=== PATIENT | female | born 1945 | race Caucasian/White ===

== ENCOUNTER → 2017-02-04 | Outpatient (CLI) | payer MEDICARE, BC, SELFPAY | PROVIDERS: Family Provider Family Medicine; Visit Provider Family Medicine | DX: M17.0 Bilateral primary osteoarthritis of knee (principal) | CPT/HCPCS: 73564 ==

== ENCOUNTER 2017-03-28 08:27 | Day surgery (SDC) | payer MEDICARE, BC, SELFPAY ==
[2017-03-25 10:23] VITALS: BMI 32.4
[2017-03-28] VITALS (9 sets, daily range): BP systolic 142–161; BP diastolic 75–100; PULSE 80–89; RESP 11–18; TEMP 36.3–36.8; O2SAT 93–97
--- NOTE | 2017-03-28 10:00 | HMH.PROC ---
[facility] Procedure Note Procedure Note:: Upper Endoscopy Procedure Report: Esophagogastroduodenoscopy with cold biopsies Endoscopost: Christiano Bruce II, MD Referring Physician: Deion Smith MD Date of Procedure: March 28, 2017 Equipment: Olympus GIF 180 standard upper endoscope Sedation: Fentanyl 100 mg IV/ Versed 7 mg IV Indications: Mrs. Arellano is a 72-year-old female who is here for diagnostic upper endoscopy. The patient does state that in July 2015 (while living in [place]) she did have black tarry melanotic stools and underwent an EGD showing a couple of small lesions. She received blood transfusion and iron transfusions. A repeat endoscopy they are in July 2015 showed that this had resolved. The patient states that in December 2016 she once again had some black tarry melanotic stools and had fatigue and malaise. She was found to have marked iron deficiency anemia and received parenteral iron infusion as well as oral iron. The patient has improved. She did have a deep venous thrombosis last spring and took warfarin until the end of June 2016. The patient does state that she had a colonoscopy 3 or 4 years ago (in [place]) at which time a couple of small polyps were removed. She does have some occasional periumbilical discomfort. She has some intermittent swallowing difficulties with dysphagia to both solids and liquids. She reports no heartburn or reflux. She does have some bloating, gassiness and belching. She reports no weight loss or family history of stomach or colon cancer. Her father had Crohn's disease and diverticulitis. Her most recent hemoglobin and hematocrit in January 2017 were 12.1 and 44.0 but her hemoglobin and hematocrit in December 2016 were 8.4 and 27.8. She does have a history of GERD. Procedure: Prior to the procedure, a history and physical exam was performed, and patient's medications and allergies were reviewed. The risks, benefits and alternatives of the sedation and procedure were discussed with the patient. All questions were answered and informed consent was obtained. The patient was brought to the procedure room. Patient identification and proposed procedure were verified by the physician and the nurse. The patient was placed in a left lateral decubitus position and the scope was passed under direct vision. Throughout the procedure, the patient's blood pressure, pulse, and oxygen saturations were monitored continuously. The upper GI endoscopy was accomplished without difficulty. The patient tolerated the procedure well. Findings: The scope was passed directly into the upper esophagus and advanced to the third/fourth portion of the duodenum and proximal jejunum. There was a large duodenal diverticulum in the third portion of the duodenum but otherwise there were normal folds with normal mucosa and conniventes. There was mild duodenal lymphoid stasis. Cold biopsies were taken from the second portion of the duodenum to rule out celiac disease. The scope was withdrawn through a normal duodenal bulb and pylorus into the stomach. There was some mild linear erythema of the antrum and body of the stomach with bowel reflux. Upon retroflexion there was a very large hiatal/paraesophageal hernia (7-8 cm) with mild linear Gavino's erosions. Cold biopsies were taken from the prepyloric antrum and lesser curvature for histology. The scope was then withdrawn into the esophagus. There was no evidence of reflux esophagitis or Granger's. There was mild presbyesophagus. Impression: 1. Large hiatal/paraesophageal hernia (7-8 cm) with mild linear Gavino's erosions 2. Bile reflux with mild linear reactive gastritis 3. Large duodenal diverticulum third portion 4. Mild presbyesophagus Plan: I do feel that the patient's recurrent iron deficiency anemia is most likely related to the Gavino's erosions. I also feel that the patient is at high risk for gastric volvulus because of the size of this paraesop
--- NOTE | 2017-03-28 10:09 | P.PCN_ITS ---
[facility] Procedure Note Procedure Note:: Upper Endoscopy Procedure Report: Esophagogastroduodenoscopy with cold biopsies Endoscopost: Christiano Bruce II, MD Referring Physician: Deion Smith MD Date of Procedure: March 28, 2017 Equipment: Olympus GIF 180 standard upper endoscope Sedation: Fentanyl 100 mg IV/ Versed 7 mg IV Indications: Mrs. Arellano is a 72-year-old female who is here for diagnostic upper endoscopy. The patient does state that in July 2015 (while living in [place]) she did have black tarry melanotic stools and underwent an EGD showing a couple of small lesions. She received blood transfusion and iron transfusions. A repeat endoscopy they are in July 2015 showed that this had resolved. The patient states that in December 2016 she once again had some black tarry melanotic stools and had fatigue and malaise. She was found to have marked iron deficiency anemia and received parenteral iron infusion as well as oral iron. The patient has improved. She did have a deep venous thrombosis last spring and took warfarin until the end of June 2016. The patient does state that she had a colonoscopy 3 or 4 years ago (in [place]) at which time a couple of small polyps were removed. She does have some occasional periumbilical discomfort. She has some intermittent swallowing difficulties with dysphagia to both solids and liquids. She reports no heartburn or reflux. She does have some bloating, gassiness and belching. She reports no weight loss or family history of stomach or colon cancer. Her father had Crohn's disease and diverticulitis. Her most recent hemoglobin and hematocrit in January 2017 were 12.1 and 44.0 but her hemoglobin and hematocrit in December 2016 were 8.4 and 27.8. She does have a history of GERD. Procedure: Prior to the procedure, a history and physical exam was performed, and patient' s medications and allergies were reviewed. The risks, benefits and alternatives of the sedation and procedure were discussed with the patient. All questions were answered and informed consent was obtained. The patient was brought to the procedure room. Patient identification and proposed procedure were verified by the physician and the nurse. The patient was placed in a left lateral decubitus position and the scope was passed under direct vision. Throughout the procedure, the patient's blood pressure, pulse, and oxygen saturations were monitored continuously. The upper GI endoscopy was accomplished without difficulty. The patient tolerated the procedure well. Findings: The scope was passed directly into the upper esophagus and advanced to the third/fourth portion of the duodenum and proximal jejunum. There was a large duodenal diverticulum in the third portion of the duodenum but otherwise there were normal folds with normal mucosa and conniventes. There was mild duodenal lymphoid stasis. Cold biopsies were taken from the second portion of the duodenum to rule out celiac disease. The scope was withdrawn through a normal duodenal bulb and pylorus into the stomach. There was some mild linear erythema of the antrum and body of the stomach with bowel reflux. Upon retroflexion there was a very large hiatal/paraesophageal hernia (7-8 cm) with mild linear Gavino's erosions. Cold biopsies were taken from the prepyloric antrum and lesser curvature for histology. The scope was then withdrawn into the esophagus. There was no evidence of reflux esophagitis or Granger's. There was mild presbyesophagus. Impression: 1. Large hiatal/paraesophageal hernia (7-8 cm) with mild linear Gavino's erosions 2. Bile reflux with mild linear reactive gastritis 3. Large duodenal diverticulum third portion
== END 2017-03-28 11:15 | disposition home or self-care (01) ==
LOC: OUTP 08:29
PROVIDERS: Family Provider Family Medicine; PCP Family Medicine; Visit Provider Internal Medicine Gastroenterology
PROC: 0DJ08ZZ Inspection of Upper Intestinal Tract, Via Natural or Artificial Opening Endoscopic (ICD-10-PCS; CPT 43235; principal; 2017-03-28 09:30)
DX: K29.60 Other gastritis without bleeding; K57.10 Diverticulosis of small intestine without perforation or abscess without bleeding; K22.8 Other specified diseases of esophagus; Z86.010 Personal history of colon polyps; Z83.79 Family history of other diseases of the digestive system
CPT/HCPCS: 43239; 88305; 99152

== ENCOUNTER → 2017-04-03 14:50 | Outpatient (CLI) | payer MEDICARE, BC, SELFPAY ==
--- NOTE | 2017-04-03 15:22 | XR_ITS ---
XR ankle LT min 3V HISTORY: Left ankle pain ITS.REASON: BILATERAL ANKLE PAIN ORDERING PHYSICIAN: Genesis Adam DPM PATIENT AGE: 72 years COMPARISON: None FINDINGS: Weightbearing views are performed. Minimal hypertrophic changes are present at the tip of the medial malleolus. There is mild narrowing of the ankle joint anteriorly. No fracture or dislocation. The talar dome has an unremarkable appearance. There are small sclerotic focus in the medial distal tibia and may be due to small bone island. IMPRESSION: 1. Mild osteoarthritic change. 2. No acute finding
--- NOTE | 2017-04-03 15:22 | XR_ITS ---
XR foot RT min 3V HISTORY: Right foot pain ITS.REASON: BILATERAL FOOT PAIN ORDERING PHYSICIAN: Genesis Adam DPM PATIENT AGE: 72 years COMPARISON: None FINDINGS: Weightbearing views are performed. Minimal osteoarthritic changes involving first metatarsophalangeal joint. There is pes planus with Mearys angle of -20 degrees. No fracture or dislocation. IMPRESSION: Pes planus
--- NOTE | 2017-04-03 15:22 | XR_ITS ---
XR ankle RT min 3V HISTORY: Ankle pain ITS.REASON: BILATERAL ANKLE PAIN ORDERING PHYSICIAN: Genesis Adam DPM PATIENT AGE: 72 years COMPARISON: None FINDINGS: Weightbearing views performed No fracture or dislocation. No lytic or blastic change. There is normal mineralization.. The joint spaces are well-preserved. No significant degenerative/arthritic changes. No erosive changes evident. Small sclerotic focus involves the distal tibia medially at 5 mm and may be due to a small bone island IMPRESSION: Negative ankle, no acute finding
--- NOTE | 2017-04-03 15:22 | XR_ITS ---
XR foot LT min 3V HISTORY: ITS.REASON: BILATERAL FOOT PAIN ORDERING PHYSICIAN: Genesis Adam DPM PATIENT AGE: 72 years COMPARISON: None FINDINGS: Weightbearing views are performed. Minimal osteoarthritic changes involving first metatarsophalangeal joint. There is pes planus with Mearys angle of -18 degrees. No fracture or dislocation. IMPRESSION: Pes planus with osteoarthritic change of the first metatarsophalangeal joint
== END ==
PROVIDERS: PCP Family Medicine; Visit Provider Podiatrist
DX: R52 Pain, unspecified (principal)
CPT/HCPCS: 73610; 73630

== ENCOUNTER → 2017-04-10 11:00 | Outpatient (REF) | payer MEDICARE, BC, SELFPAY ==
[2017-04-11 11:49] LABS: Occult Blood,Stool Negative (Negative)
== END ==
LOC: LAB 11:00
PROVIDERS: Visit Provider Internal Medicine Gastroenterology
DX: D64.9 Anemia, unspecified (principal)
CPT/HCPCS: 82272; G0328

== ENCOUNTER → 2017-04-11 11:55 | Outpatient (POV) | payer MEDICARE, BC, SELFPAY | PROVIDERS: Family Provider Family Medicine; PCP Family Medicine; Visit Provider Podiatrist | DX: Z00.00 Encounter for general adult medical examination without abnormal findings (principal) ==

== ENCOUNTER → 2017-05-30 08:48 | Outpatient (POV) | payer MEDICARE, BC, SELFPAY | PROVIDERS: Visit Provider Podiatrist | DX: Z00.00 Encounter for general adult medical examination without abnormal findings (principal) ==

== ENCOUNTER → 2017-08-04 11:05 | Outpatient (CLI) | payer MEDICARE, BC, SELFPAY ==
--- NOTE | 2017-08-04 11:13 | NVE_ITS ---
Venous Exam Indications: 729.5 Pain in limb. IMPRESSIONS 1. There is no evidence of significant Reflux. 2. No evidence of deep or superficial vein thrombosis involving the left lower extremity History: PMH: Deep vein thrombosis. Left lower extremity venous duplex evaluation. Doppler flow study including spectral analysis, color and ellsworth scale imaging. Location: Vascular laboratory. Patient status: Outpatient. CRITICAL FINDINGS - Reported to: [facility] - Read back and verified. - 08/04/17 - 1135 - NONE Tables: Venous flow and imaging: + +-------+ + Location Overall Flow properties + +-------+ + Left common femoral Patent Normal phasicity; spontaneous; normal augmentation; compressible + +-------+ + Left saphenofemoral junction Patent Compressible + +-------+ + Left profunda femoral Patent Compressible + +-------+ + Left femoral Patent Normal phasicity; spontaneous; normal augmentation; compressible + +-------+ + Left greater saphenous Patent Normal phasicity; spontaneous; normal augmentation; compressible + +-------+ + Left popliteal Patent Normal phasicity; spontaneous; normal augmentation; compressible + +-------+ + Left posterior tibial Patent Compressible + +-------+ + Left peroneal Patent Compressible + +-------+ + Left gastrocnemius Patent Compressible + +-------+ + Left soleal Patent Compressible + +-------+ + (Report amended ) Electronically signed by: Cem Thomson [id number]
== END ==
PROVIDERS: PCP Nurse Practitioner; Visit Provider Nurse Practitioner
DX: M79.605 Pain in left leg (principal); M79.89 Other specified soft tissue disorders; Z86.718 Personal history of other venous thrombosis and embolism
CPT/HCPCS: 93971

== ENCOUNTER → 2017-08-06 11:46 | Outpatient (CLI) | payer MEDICARE, BC, SELFPAY ==
--- NOTE | 2017-08-06 11:51 | XR_ITS ---
XR knee LT 2V HISTORY: ITS.REASON: LEFT LEG SWELLING,LEFT KNEE PAIN ORDERING PHYSICIAN: Chelo Flores PATIENT AGE: 72 years COMPARISON: None FINDINGS: There are mild osteoarthritic changes of all 3 compartments. No fracture or dislocation. No lytic or blastic change. IMPRESSION: Mild osteoarthritis
== END ==
PROVIDERS: PCP Family Medicine; Visit Provider Nurse Practitioner
DX: M25.562 Pain in left knee (principal); M79.89 Other specified soft tissue disorders
CPT/HCPCS: 73560

== ENCOUNTER → 2017-08-15 14:28 | Outpatient (CLI) | payer MEDICARE, BC, SELFPAY ==
--- NOTE | 2017-08-15 14:30 | MR_ITS ---
MR knee LT wo con HISTORY: Left knee pain posterior left knee pain ITS.REASON: LEFT KNEE PAIN, UNSPECIFIED CHRONICITY ORDERING PHYSICIAN: Deion Smith MD PATIENT AGE: 72 years Comparison: 08/14/2012 TECHNIQUE: Standard multiplanar multiecho sequences are performed without contrast. FINDINGS: The cruciate ligaments, collateral ligaments, patellar tendon, and quadriceps tendon have an unremarkable appearance. There is a longitudinal tear involving the posterior horn of the lateral meniscus with minimal separation of meniscal fragments by approximately 2 mm. There are tricompartmental osteoarthritic changes with decrease in the joint space and osteophyte formation. There is minimal medial extrusion of the medial meniscus and mild lateral extrusion of the lateral meniscus. Small amount of edema is present in the subcortical region of the posterior patella. There is loss of the patellar cartilage with mild hypertrophic changes of the patella. There is a small knee joint effusion with small loculated areas of fluid along the medial aspect of the distal femur, posterior to the distal femur. Ghotra cyst are present containing tiny septations. The Ghotra's cyst is both deep and superficial to the medial head of gastrocnemius. They measure at least 5 cm in length. IMPRESSION: 1. Longitudinal tear posterior horn lateral meniscus 2. 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 Multiple small septations are present within the effusions. 3. 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
== END ==
PROVIDERS: Family Provider Family Medicine; PCP Family Medicine; Visit Provider Family Medicine
DX: M25.562 Pain in left knee (principal)
CPT/HCPCS: 73721

== ENCOUNTER → 2017-10-31 09:57 | Outpatient (CLI) | payer MEDICARE, BC, SELFPAY | PROVIDERS: PCP Family Medicine; Visit Provider Family Medicine | DX: R00.2 Palpitations (principal); R55 Syncope and collapse; I10 Essential (primary) hypertension | CPT/HCPCS: 93225; 93226 ==

== ENCOUNTER → 2017-11-18 06:12 | Outpatient (CLI) | payer MEDICARE, BC, SELFPAY ==
--- NOTE | 2017-11-18 06:30 | NM_ITS ---
History and Indications: Hypertension, hyperlipidemia, family history, shortness of breath and palpitations Procedure: Patient received a 0.4, with intravenous Lexiscan, resting heart rate was 66 bpm resting blood pressure 193/98, with Lexiscan maximum heart rate achieved was 89 bpm which is less than 85% of the maximum predicted heart rate and a blood pressure was 192/95. The CT scan patient complained of chest pressure and shortness of breath. Electrocardiogram: Resting echocardiogram showed sinus rhythm with Lexiscan there is less than 1.[address] segment depression noted from the baseline EKG. The EKG portion of the Lexiscan Myoview is nondiagnostic. Cardiac stress and resting SPECT images: Cardiac stress and rest SPECT images were obtained using technetium 99 Myoview 31.4 mCi at stress and 9.5 mCi at rest gated SPECT further analysis of segmental wall motion and calculation of the ejection fraction also done. Cardiac stress and the rest SPECT images show uniform myocardial activity without segmental perfusion abnormality, computer derived ejection fraction is over 65% no wall motion abnormality, right ventricle is normal size and contractility. Conclusion: 1. The EKG portion of the Lexiscan Myoview is nondiagnostic. 2. No scintigraphic evidence of reversible ischemia seen, computer derived ejection fraction over 65% with no regional wall motion abnormality, right ventricle is normal size and contractility. 3. Normal Lexiscan Myoview study.
--- NOTE | 2017-11-18 07:29 | HMH.ITSHM ---
ATORVASTATIN DULOXETINE LORATADINE PREDNISONE MULTIVITAMINS
== END ==
PROVIDERS: PCP Family Medicine; Visit Provider Family Medicine
DX: R00.2 Palpitations (principal); R55 Syncope and collapse; I10 Essential (primary) hypertension; R07.89 Other chest pain
CPT/HCPCS: 78452; 93017; A9502; J2785

== ENCOUNTER → 2017-11-27 10:36 | Outpatient (CLI) | payer MEDICARE, BC, SELFPAY | PROVIDERS: PCP Family Medicine; Visit Provider Family Medicine | DX: I48.0 Paroxysmal atrial fibrillation (principal) | CPT/HCPCS: 93270 ==

== ENCOUNTER → 2017-12-05 07:59 | Outpatient (CLI) | payer MEDICARE, BC, SELFPAY ==
--- NOTE | 2017-12-05 08:01 | CA_ITS ---
PROCEDURE: 2-D M-mode and color Doppler study INDICATIONS FOR THE TEST: Chest pain COPD Heart Murmur Tobacco Smoking PalpitationsX Fatigue Syncope Edema Hypertension Diabetes Mellitus Rheumatic Fever SOB ACEVES Obesity HyperlipidemiaX Family History HDX Additional History PAF PATIENT INFORMATION HEIGHT: 67 WEIGHT:170 GENDER: Female B/P:130/85 2-D/M-MODE INTERPRETATION: 2-D MEASUREMENTS OBSERVED VALUES IN CMS Right Ventricular Dimension (RVDd) 1.4 Interventricular Septum (Thickness)(IVsd) 1.1 Left Ventricular Internal Dimensions(LVIDd) 5.6 Left Ventricular Posterior Wall (Thickness)(LVPWd) .8 Aortic Root 2.9 Aortic Cusp Separation 1.7 Left Atrial Dimensions (LAD) 3.9 2D 1. Left atrium is mildly enlarged, left ventricle is normal size, mild concentric left ventricular hypertrophy, visually estimated ejection fraction 55% with no regional wall motion abnormality. 2. The right atrium and right ventricle are normal size and contractility. 3. The aortic valve is minimally thickened and fibrosed. 4. The mitral and tricuspid valve leaflets are minimally thickened. 5. The pulmonic valve is poorly visualized. 6. No significant pericardial effusion noted. DOPPLER INTERROGATION: Doppler interrogation of the aortic, mitral and tricuspid valvular presence of mild mitral and tricuspid regurgitation, tricuspid regurgitation jet velocity is inadequate for calculation of the right ventricular systolic pressure, grade 1 diastolic dysfunction seen without tissue Doppler evidence of raised left atrial pressure. CONCLUSION: 1. Mildly enlarged left atrium, normal left ventricular size, visually estimated ejection fraction 55% with no regional wall motion abnormality, grade 1 diastolic dysfunction seen without tissue Doppler evidence of raised left atrial pressure. 2. Mild mitral and tricuspid regurgitation 3. No significant pericardial effusion noted.
== END ==
PROVIDERS: Family Provider Family Medicine; PCP Family Medicine; Visit Provider Family Medicine
DX: I48.0 Paroxysmal atrial fibrillation (principal)
CPT/HCPCS: 93306

== ENCOUNTER → 2018-04-21 12:00 | Outpatient (CLI) | payer MEDICARE, BC, SELFPAY ==
[2018-04-21 12:03] LABS: Adenovirus F 40/41, stool Not Detected (NotDetected); Astrovirus Not Detected (NotDetected); Campylobacter Not Detected (NotDetected); Clostridium Difficile A/B, PCR Not Detected (NotDetected); Cryptosporidium Not Detected (NotDetected); Cyclospora Cayetanesis Not Detected (NotDetected); Entamoeba histolytica Not Detected (NotDetected); Enteroaggregative E coli Not Detected (NotDetected); Enteropathogenic E coli Not Detected (NotDetected); Enterotoxigenic E coli Not Detected (NotDetected); Giardia lamblia Not Detected (NotDetected); Norovirus Not Detected (NotDetected); Plesimonas Shigalloides, PCR Not Detected (NotDetected); Rotavirus A Not Detected (NotDetected); Salmonella, PCR Not Detected (NotDetected); Sapovirus Not Detected (NotDetected); Shiga-like toxin E coli Not Detected (NotDetected); Shigella Enterovasive E coli Not Detected (NotDetected); Vibrio Cholerae Not Detected (NotDetected); Vibrio, PCR Not Detected (NotDetected); Yersinia Entercolitica, PCR Not Detected (NotDetected)
[2018-04-25 10:08] LABS: Lactoferrin, Fecal, Quant. 1.07 ug/mL(g) (0.00-7.24)
== END ==
PROVIDERS: Visit Provider Nurse Practitioner Acute Care
DX: R19.4 Change in bowel habit (principal)
CPT/HCPCS: 83630; 87506

== ENCOUNTER → 2018-06-29 10:00 | Outpatient (CLI) | payer MEDICARE, BC, SELFPAY ==
--- NOTE | 2018-06-29 10:05 | MM_ITS ---
MM Dig screening mamm BI w/CAD CAD Screening COMPARISON: Outside digital mammograms with CAD 06/04/2016 INDICATION: There is a history of breast cancer patient maternal grandmother and maternal aunt and mother TECHNIQUE: Standard CC and MLO images were obtained. R2 CAD reviewed. FINDINGS: Scattered fibroglandular densities are seen throughout both breasts. There are mole markers on each breast. There is a benign-appearing calcification there is faint arterial calcification in each breast. There is no suspicious lesion and no suspicious microcalcifications. Right breast. IMPRESSION: Fibrofatty parenchyma with no suspicious lesion seen BI-RADS Category: 2 Benign Finding(s) RECOMMENDED FOLLOW-UP: 1YR - 1 YEAR FOLLOW-UP (A letter has been sent to the patient regarding results of the study.)
== END ==
PROVIDERS: PCP Family Medicine; Visit Provider Family Medicine
DX: Z12.31 Encounter for screening mammogram for malignant neoplasm of breast (principal)
CPT/HCPCS: 77067

== ENCOUNTER → 2018-07-02 06:40 | Outpatient (CLI) | payer MEDICARE, BC, SELFPAY ==
[2018-07-10 13:14] LABS: 5-HIAA, Urine 2.6 mg/L (Undefined); 5-HIAA, Urine, 24Hr. 3.3 mg/24 hr (0.0-14.9)
== END ==
PROVIDERS: Visit Provider Family Medicine
DX: R61 Generalized hyperhidrosis (principal); R23.2 Flushing; R00.0 Tachycardia, unspecified; R53.81 Other malaise
CPT/HCPCS: 83497

== ENCOUNTER → 2018-07-29 13:36 | Outpatient (POV) | payer MEDICARE, BC, SELFPAY | DX: Z00.00 Encounter for general adult medical examination without abnormal findings (principal) ==

== ENCOUNTER → 2018-09-02 14:08 | Outpatient (POV) | payer MEDICARE, BC, SELFPAY | DX: Z00.00 Encounter for general adult medical examination without abnormal findings (principal) ==

== ENCOUNTER → 2018-09-16 13:23 | Outpatient (POV) | payer MEDICARE, BC, SELFPAY | DX: Z00.00 Encounter for general adult medical examination without abnormal findings (principal) ==

== ENCOUNTER → 2018-10-05 14:46 | Outpatient (POV) | payer MEDICARE, BC, SELFPAY | PROVIDERS: PCP Family Medicine; Visit Provider Nurse Practitioner Family | DX: Z00.00 Encounter for general adult medical examination without abnormal findings (principal) ==

== ENCOUNTER → 2018-11-19 10:39 | Outpatient (CLI) | payer MEDICARE, BC, SELFPAY ==
--- NOTE | 2018-11-19 10:44 | XR_ITS ---
PROCEDURE: XR FOOT WT BEARING RT 3V CLINICAL INDICATION: foot pain COMPARISON: [id number] XR foot LT min 3V from 04/03/2017 [id number] XR foot RT min 3V from 04/03/2017 FINDINGS: No fracture or dislocation. No lytic or blastic change. There is normal mineralization. There is stable narrowing of the 1st MTP joint. There is no spurs or erosions. There is no acute fracture. There is stable flattening of the plantar arch. There is a 5 millimeters sclerotic focus is involving distal tibia. Other findings:None. IMPRESSION: No acute process. Stable degenerative change 1st MTP joint. Probable distal tibial benign bone island. Dictated by: Robert Rodriguez 11/19/2018 11:13 Electronically signed by Robert Rodriguez in [place] 11/19/2018 11:13
--- NOTE | 2018-11-19 10:44 | XR_ITS ---
PROCEDURE: XR FOOT WT BEARING LT 3V CLINICAL INDICATION: foot pain COMPARISON: [id number] XR foot LT min 3V from 04/03/2017 [id number] XR foot RT min 3V from 04/03/2017 FINDINGS: No fracture or dislocation. No lytic or blastic change. There is normal mineralization. There is narrowing of multiple interphalangeal joint spaces as well as the 1st MTP joint without erosions. There is a small spur involving distal 1st metatarsal bone at the MTP joint. Other findings:There is no acute fracture. IMPRESSION: No acute process. Joint space degenerative changes especially 1st MTP joint. Dictated by: Robert Rodriguez 11/19/2018 11:11 Electronically signed by Robert Rodriguez in [place] 11/19/2018 11:11
== END ==
PROVIDERS: PCP Family Medicine; Visit Provider Podiatrist
DX: L84 Corns and callosities (principal)
CPT/HCPCS: 73630

== ENCOUNTER → 2018-11-25 14:16 | Outpatient (POV) | payer MEDICARE, BC, SELFPAY | PROVIDERS: Visit Provider Internal Medicine | DX: Z00.00 Encounter for general adult medical examination without abnormal findings (principal) ==

== ENCOUNTER → 2018-12-16 14:01 | Outpatient (POV) | payer MEDICARE, BC, SELFPAY | DX: Z00.00 Encounter for general adult medical examination without abnormal findings (principal) ==

== ENCOUNTER → 2019-01-13 14:04 | Outpatient (POV) | payer MEDICARE, BC, SELFPAY | DX: Z00.00 Encounter for general adult medical examination without abnormal findings (principal) ==

== ENCOUNTER → 2019-03-17 14:35 | Outpatient (CLI) | payer MEDICARE, BC, SELFPAY ==
--- NOTE | 2019-03-17 14:39 | MM_ITS ---
PROCEDURE: MM DIG MAMM DX UNILAT RT with 3D tomosynthesis Right breast ultrasound CLINICAL INDICATION: 6 MO FU Bloody nipple discharge COMPARISON: DIG MAMM-SCREEN SALMA from 06/29/2018 US BREAST RT COMPLETE from 03/17/2019 TECHNIQUE: Standard CC and MLO images and 3D Tomosinthisis was obtained. R2 CAD reviewed. Right breast ultrasound also performed FINDINGS: There is average fibroglandular tissue. No malignant appearing mass or malignant-appearing microcalcification is evident. A benign-appearing nodules present in the outer aspect of the right breast and is not significantly changed measuring approximately 6 mm. Right breast ultrasound: There is a 3 mm cyst at 11 o'clock. Small nodes are present in the axilla. IMPRESSION: Benign findings. Recommend six-month follow-up of both breasts to put patient back on schedule BI-RAD Category: 2 Benign Finding(s) FOLLOW-UP: 6M 6Month Follow-up (A letter has been sent to the patient regarding results of the study.) Dictated by: Cem Thomson MD 03/17/2019 15:46 Electronically signed by Cem Thomson MD in [place] 03/17/2019 15:46
== END ==
PROVIDERS: Visit Provider Family Medicine
DX: N64.52 Nipple discharge (principal); Z80.3 Family history of malignant neoplasm of breast
CPT/HCPCS: 76641; 77061; 77065; 88104; G0279

== ENCOUNTER → 2019-04-05 13:38 | Outpatient (POV) | payer MEDICARE, BC, SELFPAY | PROVIDERS: PCP Nurse Practitioner Family; Visit Provider Nurse Practitioner Family | DX: Z00.00 Encounter for general adult medical examination without abnormal findings (principal) ==

== ENCOUNTER → 2019-06-07 17:08 | Outpatient (CLI) | payer MEDICARE, BC, SELFPAY | PROVIDERS: Visit Provider Nurse Practitioner Obstetrics & Gynecology | DX: N39.0 Urinary tract infection, site not specified (principal) | CPT/HCPCS: 87086; 87088; 87186 ==

== ENCOUNTER 2019-07-15 14:57 | Inpatient (IN) | payer MEDICARE, BC, SELFPAY ==
[2019-07-15 14:59] VITALS: BP 147/91; PULSE 88; RESP 18; O2SAT 97; BMI 27.3
--- NOTE | 2019-07-15 15:10 | XR_ITS ---
PROCEDURE: XR TIBIA FIBULA LT 2V CLINICAL INDICATION: fall Posttraumatic pain COMPARISON: No exams were available for comparison FINDINGS: There are mild osteoarthritic changes involving the medial and lateral compartment and patellofemoral joint. No acute fracture or dislocation. IMPRESSION: Osteoarthritis otherwise negative Dictated by: Cem Thomson MD 07/15/2019 16:00 Electronically signed by Cem Thomson MD in [facility] 07/15/2019 16:00
--- NOTE | 2019-07-15 15:10 | XR_ITS ---
PROCEDURE: XR HIP LT 2-3V W/PELVIS CLINICAL INDICATION: fall Posttraumatic pain COMPARISON: No exams were available for comparison FINDINGS: There is a nondisplaced transcervical left femoral neck fracture with minimal impaction of the fracture fragments. Femoral head is in place. IMPRESSION: Nondisplaced minimally impacted left transcervical femoral neck fracture Dictated by: Cem Thomson MD 07/15/2019 16:04 Electronically signed by Cem Thomson MD in [place] 07/15/2019 16:04
--- NOTE | 2019-07-15 16:15 | PC.NURSE ---
Pt in restroo with assistance from Annika Collins RN
--- NOTE | 2019-07-15 16:43 | HMH.EDFALL ---
ED Disposition Clinical Impression: Hip fracture Disposition: Admitted as Observation Condition on Discharge: Good Instructions: How to Prevent Falls Referrals: Deion Smith MD [Primary Care Provider] - - Critical Care Critical Care Time: No Attestation: On 07/15/19, the high probability of a clinically significant, sudden or life threatening deterioration of the following system(s) required my full and direct attention, intervention and personal management. The time I documented below is in addition to time spent performing reported procedures but includes the following listed in this critical care notation. Medical Decision Making - Medical Records Medical records reviewed: Yes: I reviewed the patient's medical records. - Ruben Inquiry Pt receiving controlled substance: No Vital Signs: 07/15/19 14:59 Pulse Rate [Radial] 88 Respiratory Rate 18 Blood Pressure [Right Arm] 147/91 H Blood Pressure Mean [Right Arm] 109 Blood Pressure Source [Right Arm] Automatic Cuff Blood Pressure Position [Right Arm] Sitting 02 Sat by Pulse Oximetry 97 Oxygen Delivery Method Room Air - Lab Data Lab results reviewed: Yes: I reviewed the patient's lab results. Orders (Tests/Meds): ORDERS Category Date Time Status CT hip LT wo con Stat Cat Scan 07/15/19 16:47 Ordered CBC w/Auto Diff [Complete Blood Count Auto Diff] Stat Lab 07/15/19 16:47 Ordered CMP [Comprehensive Metabolic Panel] Stat Lab 07/15/19 16:47 Ordered - Radiology Data #1 Image(s): Hip Image Reviewed: Yes I have reviewed radiologist's interpretation Preliminary Findings: Abnormal (Left nondisplaced femoral neck fracture) Medical Decision Narrative: To Dr. Johnson for admission Dr. Limon will consult and operate. Fall HPI - General Chief Complaint: Fall Stated Complaint: AO [id number] right side hip,pelvic,home acciden Time Seen by Provider: 07/15/19 16:43 Mode of Arrival: Ambulatory Source of Information: Patient Limitations: No Limitations Description of Symptoms (Recalled from ER Triage Doc. by RN): fell from being drug by dog. Left hip and fernandez pain. - History of Present Illness HPI Narrative: 74-year-old female presents to the ED after a fall. She was walking her [employer] masks whose name is peanut and when peanut saw a squirrel he darted after the animal. In doing so the slack that was in the leash pulled and snapped and the force of this caught the patient off guard and she landed on her left hip. This took place just prior to arrival. Patient states her pain is sharp and she rates her pain 7 out of 10. Prior to presenting to the ED she did take 1 tramadol and she states that is taking the edge off the pain. She describes exacerbating factors that include any sort of movement or ambulation or rotation of that leg. Alleviating factors include immobilization. Patient denies any recent fever shakes or chills. Patient also denies any shortness of breath. Patient also denies any sore throat or headache. Patient also denies any loss of taste. Patient also denies any subjective or objective fevers. MD complaint: fall Onset (ago): minute(s) Fall from: standing Fall witnessed: yes, by family Place fall occurred: home Loss of consciousness: none Prolonged down time: no Location of injury: pelvis - Related Data Home Medications Medication Instructions Recorded Confirmed Duloxetine HCl [Cymbalta] 30 mg PO BID 03/25/17 06/09/19 Multivitamin [Multivitamins] 1 each PO DAILY 03/25/17 06/09/19 apixaban 5 mg tablet 5 mg PO BID 04/16/18 06/09/19 amlodipine 10 mg tablet PO 06/09/19 06/09/19 atorvastatin 20 mg tablet PO 06/09/19 06/09/19 atorvastatin 80 mg tablet PO 06/09/19 06/09/19 buspirone 30 mg tablet mg PO 06/09/19 06/09/19 dexamethasone 1 mg tablet PO 06/09/19 06/09/19 dexlansoprazole 60 mg mg PO 06/09/19 06/09/19 capsule,biphase delayed release enoxaparin 80 mg/0.8 mL SQ 06/09/19 06/09/19 subcutaneous syr
--- NOTE | 2019-07-15 16:47 | CT_ITS ---
PROCEDURE: CT HIP LT WO CON CLINICAL HISTORY: fall fx Left hip pain following injury, evaluate for fracture COMPARISON: XR HIP LT 2-3V W/PELVIS from 07/15/2019 TECHNIQUE: Axial images obtained with sagittal and coronal reformats. All CT scans at the facility use one or more dose reduction, viz: automated exposure control, ma/kV adjustment per patient size (including targeted exams where dose is matched to indication, i.e. head), or iterative reconstruction technique. FINDINGS: Mildly impacted left femoral neck fracture is present. The fracture subcapital in the superior lateral aspect and extends obliquely into the transcervical region of the left femoral neck. There is mild impaction of the fracture fragments with mild coxa valga. No significant displacement. No evidence of dislocation. Minimal osteoarthritic changes noted of the hip Incidental note made of diverticulosis of the sigmoid colon IMPRESSION: 1. Slightly impacted left femoral neck fracture extending from the subcapital region laterally in oblique fashion to the transcervical region with mild impaction and mild coxa valga 2. Sigmoid diverticulosis Dictated by: Cem Thomson MD 07/16/2019 06:30 Electronically signed by Cem Thomson MD in [place] 07/16/2019 06:30
--- NOTE | 2019-07-15 16:56 | PC.NURSE ---
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
[2019-07-15 16:58] LABS: Basophils # 0.1 K/mm3 (0-0.2); Basophils % 0.5 % (0.1-2.0); Eosinophils # 0.1 K/mm3 (0.0-0.4); Eosinophils % 0.7 % (0.1-12.0); Hematocrit 41.9 % (37.0-47.0); Hemoglobin 14.1 g/dL (12.2-16.2); Lymphocytes # 2.1 K/mm3 (0.7-4.5); Lymphocytes % 14.5 % (10-50); Mean Corpuscular HGB Conc 33.6 g/dL (31.8-35.4); Mean Corpuscular Hemoglobin 30.1 pg (27.0-31.2); Mean Corpuscular Volume 89.5 fl (81-99); Monocytes # 0.7 K/mm3 (0.1-1.0); Monocytes % 4.7 % (1.7-9.3); Neutrophils # 11.3 K/mm3 (1.8-7.8); Neutrophils % 79.5 % (37.0-80.0); Platelet Count 267 K/mm3 (142-424); Red Blood Count 4.68 M/mm3 (4.20-5.40); Red Cell Distribution Width 13.4 % (11.5-17.5); White Blood Count 14.3 K/mm3 (4.8-10.8)
[2019-07-15 16:59] LABS: Chloride 101 mmol/L (98-107); Potassium 3.7 mmoL/L (3.5-5.1); Sodium 140 mmol/L (136-145)
[2019-07-15 17:01] LABS: Blood Urea Nitrogen 19 mg/dl (7-17); Creatinine Clearance Estimated 63 mL/min (50-200); Estimated Glomerular Filt Rate 70 ml/min (>60); GFR (African American) 85 ML/MIN (>60)
[2019-07-15 17:02] LABS: Alanine Aminotransferase 19 U/L (12-78); Albumin Level 4.4 g/dl (3.5-5.0); Albumin/Globulin Ratio 1.5 (1.1-1.8); Alkaline Phosphatase 133 U/L (38-126); Anion Gap 10.7 mEq/L (5-15); Aspartate Amino Transferase 36 U/L (14-36); Bilirubin,Total 0.5 mg/dl (0.2-1.3); Calcium 9.9 mg/dl (8.4-10.2); Carbon Dioxide 32 mmol/L (22.0-30.0); Glucose 112 mg/dl (74-100); Total Protein,Serum 7.4 g/dl (6.3-8.2)
--- NOTE | 2019-07-15 17:10 | PC.NURSE ---
Pt admitted to OB department for overflow
[2019-07-15 17:27] LABS: Coronavirus 19 IgG Antibody Negative (Negative); Coronavirus 19 IgM Antibody Negative (Negative)
--- NOTE | 2019-07-15 17:28 | PC.NURSE ---
Report called to MELISSA Swift.
[2019-07-15 17:46] VITALS: BP 147/91; PULSE 88; RESP 18; TEMP 36.7; O2SAT 97
--- NOTE | 2019-07-15 17:49 | HMH.ORTHOCON ---
*Admission Date: 07/15/19 *Reason for consult:: L hip fracture *History of present illness: 74yo F presents to the ED after a fall at home earlier today. She was walking her dog (Peanut), when the dog saw a squirrel and took off after it, jerking the leash. This caught her off guard and pulled her to the ground, landing on the left side; she had immediate pain in the L hip. She was able to get up on her own after awhile, and walked from the garage into the house. She took a tramadol and laid down for a few hours, hoping the pain would subside, but it did not; at that point her brought her to the ED for evaluation. She currently reports pain in the L groin, but no numbness or tingling in the leg. She had another fall earlier in the week, when the dog again pulled her to the ground and she hit her head on the pavement. There were no open wounds and her has been monitoring her pupillary reflexes, which he says have been equal and reactive; she reports a mild headache and is concerned she may've had a concussion. L hip pain is rated a 7 out of 10. Medical history is pertinent for atrial fibrillation, GERD, hiatal hernia, HL, HTN. She has undergone appendectomy, hernia repair, hysterectomy/BTL, and tonsillectomy. She reports current use of Eliquis, duloxetine, and a multivitamin. Multiple drug allergies. Review of Systems - Review of Systems Review of systems:: pertinent systems reviewed and negative unless documented below [facility] History I have reviewed the patient's past medical history: Yes Medical History: Reports:: Atrial Fibrillation, Gastroesophageal Reflux Disease(GERD), Gastrointestinal Bleed, Hiatal Hernia, Hyperlipidemia, Hypertension Denies:: Diabetes Mellitus Type 1, Diabetes Mellitus Type 2, Internal Pacemaker, Lung Disease, Seizures *Have you ever received a pneumonia vaccine?: No *Have you received a flu vaccine this season?: No Other Medical History: Reports: Arthritis, Fibromyalgia, Other Laterality Cases: Bilateral: Tonsillectomy Other Surgeries: Yes: Appendectomy, Colonoscopy, Hernia Repair, Hysterectomy-Total, Tubal Ligation, Other. No: Pacemaker Amputation: No Fractures: No - *Social History Educational Level: Completed High School Smoking Status: Never smoker Alcohol Intake: never Alcohol Intake Frequency:: a few times a month Substance Use Type: denies use *Occupational Status:: other Housing: house *Travel in the last 8 weeks: None Family Hx:: Cancer Meds Home Medications Medication Instructions Recorded Confirmed Type Duloxetine HCl [Cymbalta] 30 mg PO BID 03/25/17 07/15/19 History Multivitamin [Multivitamins] 1 each PO DAILY 03/25/17 07/15/19 History apixaban 5 mg tablet 5 mg PO BID 04/16/18 07/15/19 History Allergies Allergy/AdvReac Type Severity Reaction Status Date / Time ibuprofen [IBUPROFEN] Allergy Intermediate I-RASH Verified 06/09/19 13:53 latex [LATEX] Allergy Intermediate I-RASH Verified 06/09/19 13:53 Penicillins [PENICILLINS] Allergy Intermediate I-RASH Verified 06/09/19 13:53 poison eladio extract Allergy Unknown S-BLISTERING Verified 06/09/19 13:53 [POISON ELADIO EXTRACT] WELTS cefoxitin Allergy Verified 06/09/19 13:53 ANCHOVIES Allergy Severe NA-NAUSEA/V Uncoded 06/09/19 13:53 OMITING IV CONTRAST Allergy Severe I-RASH Uncoded 06/09/19 13:53 Exam Vital signs and Labs for Last 24 Hours: Temp Pulse Resp BP Pulse Ox 98.1 F 88 18 147/91 H 97 07/15/19 17:46 07/15/19 17:46 07/15/19 17:46 07/15/19 17:46 07/15/19 14:59 Laboratory Results - last 24 hr 07/15/19 16:25: WBC 14.3 H, RBC 4.68, Hgb 14.1, Hct 41.9, MCV 89.5, MCH 30.1, MCHC 33.6, RDW 13.4, Plt Count 267, MPV 8.0, Neut % (Auto) 79.5, Lymph % (Auto) 14.5, [place] % (Auto) 4.7, Eos % (Auto) 0.7, Baso % (Auto) 0.5, Neut # (Auto) 11.3 H, Lymph # (Auto) 2.1, [place] # (Auto) 0.7, Eos # (Auto) 0.1, Baso # (Auto) 0.1 07/15/19 16:25: Sodium 140, Potassium 3.7, Chloride 101, Carbon Dioxide 32 H, Anion Gap 10.7, BUN 19
--- NOTE | 2019-07-15 17:50 | PC.NURSE ---
pt arrived in room 276. poc explained and pt agreeable. at bedside.
--- NOTE | 2019-07-15 18:15 | PC.NURSE ---
PT RATES PAIN A 3/10- DENIES NEED FOR MEDICATION. DENIES SOB, COUGH, FEVER SORETHROAT. MINIMAL BRUISING NOTED TO LEFT HIP. PULSES 2+. LAUREN CATH PATENT
[2019-07-15 18:30] VITALS: BP 135/77; PULSE 85; RESP 18; TEMP 37.1; O2SAT 96
--- NOTE | 2019-07-15 18:55 | PC.NURSE ---
SCUDS APPLIED TO RIGHT LEG. EDUCATION PROVIDED. PT JUST ATE DINNER. DENIES PAIN. PT UPDATED ON POC AND DIET. CALL LIGHT WITHIN REACH. NO CURRENT NEEDS.
--- NOTE | 2019-07-15 19:11 | PC.NURSE ---
REPORT GIVEN TO Deondre GAMEZ RN
[2019-07-15 20:45] VITALS: BP 132/68; PULSE 85; RESP 16; TEMP 36.9; O2SAT 95
--- NOTE | 2019-07-15 21:44 | PC.NURSE ---
pt resting comfortably at this time. no needs voiced, will continue to monitor
[2019-07-16] VITALS (19 sets, daily range): BP systolic 102–197; BP diastolic 52–96; PULSE 73–89; RESP 12–18; TEMP 36.5–43; O2SAT 92–99
--- NOTE | 2019-07-16 00:15 | PC.NURSE ---
pt medicated for pain at this time. surgery consent reviewed with pt prior to being medicated and all questions answered pt signed consents at this time, left hip and leg washed with hipiclens at this time pt tolerated well. no needs voiced
--- NOTE | 2019-07-16 01:15 | PC.NURSE ---
pt resting comfortably at this time with eyes closed no distress noted will continue to monitor at this time
--- NOTE | 2019-07-16 05:15 | PC.NURSE ---
pt has rested well throughout shift, pt has complained of headache off and on thorghout shift. pt states left hip pain is manageable. lungs remain clear. mcgregor cath patent. vs wnl no distress noted
--- NOTE | 2019-07-16 07:22 | HMH.HP ---
*Admission Date: 07/15/19 *Chief complaint: Left hip pain after fall *History of present illness: 74-year-old female who fell landing on her left hip while walking her dogs and sustained a impacted femoral neck fracture was admitted on the evening of July 14. Orthopedic service has been consulted and anticipate surgery today. Patient had one fall earlier in the week striking the left side of her head and this morning reports her headache is causing more pain in her hip at the moment. After her fall yesterday she was unable to bear weight. She denies any loss of sensation in the left leg. Past medical history is significant for atrial fibrillation, fibromyalgia [facility] History I have reviewed the patient's past medical history: Yes Medical History: Reports:: Atrial Fibrillation, Gastroesophageal Reflux Disease(GERD), Gastrointestinal Bleed, Hiatal Hernia, Hyperlipidemia, Hypertension Denies:: Diabetes Mellitus Type 1, Diabetes Mellitus Type 2, Internal Pacemaker, Lung Disease, Seizures *Have you ever received a pneumonia vaccine?: Yes *Have you received a flu vaccine this season?: Yes Other Medical History: Reports: Arthritis, Fibromyalgia, Other Laterality Cases: Bilateral: Tonsillectomy Other Surgeries: Yes: Appendectomy, Colonoscopy, Hernia Repair, Hysterectomy-Total, Tubal Ligation, Other. No: Pacemaker Amputation: No Fractures: No - *Social History Educational Level: Completed High School Smoking Status: Never smoker Alcohol Intake: never Alcohol Intake Frequency:: a few times a month Substance Use Type: denies use *Occupational Status:: other Housing: house *Travel in the last 8 weeks: None Family Hx:: Cancer Review of Systems - Constitutional Denies chills, Denies headache(s), Denies weakness - *Cardiovascular Denies chest pain, Denies chest pain at rest - *Respiratory Denies change in phlegm color, Denies chest congestion, Denies cough - *Gastrointestinal Denies abdominal pain, Denies belching, Denies bloating, Denies change in bowel habits Meds Home Medications Medication Instructions Recorded Confirmed Type Duloxetine HCl [Cymbalta] 30 mg PO BID 03/25/17 07/15/19 History Multivitamin [Multivitamins] 1 each PO DAILY 03/25/17 07/15/19 History apixaban 5 mg tablet 5 mg PO BID 04/16/18 07/15/19 History Allergies Allergy/AdvReac Type Severity Reaction Status Date / Time ibuprofen [IBUPROFEN] Allergy Intermediate I-RASH Verified 06/09/19 13:53 latex [LATEX] Allergy Intermediate I-RASH Verified 06/09/19 13:53 Penicillins [PENICILLINS] Allergy Intermediate I-RASH Verified 06/09/19 13:53 poison eladio extract Allergy Unknown S-BLISTERING Verified 06/09/19 13:53 [POISON ELADIO EXTRACT] WELTS cefoxitin Allergy Verified 06/09/19 13:53 ANCHOVIES Allergy Severe NA-NAUSEA/V Uncoded 06/09/19 13:53 OMITING IV CONTRAST Allergy Severe I-RASH Uncoded 06/09/19 13:53 Exam Vital signs and Labs for Last 24 Hours: Temp Pulse Resp BP Pulse Ox 98.7 F 85 18 132/65 95 07/16/19 04:00 07/16/19 04:00 07/16/19 04:00 07/16/19 04:00 07/15/19 20:45 Laboratory Results - last 24 hr 07/15/19 16:25: WBC 14.3 H, RBC 4.68, Hgb 14.1, Hct 41.9, MCV 89.5, MCH 30.1, MCHC 33.6, RDW 13.4, Plt Count 267, MPV 8.0, Neut % (Auto) 79.5, Lymph % (Auto) 14.5, [place] % (Auto) 4.7, Eos % (Auto) 0.7, Baso % (Auto) 0.5, Neut # (Auto) 11.3 H, Lymph # (Auto) 2.1, [place] # (Auto) 0.7, Eos # (Auto) 0.1, Baso # (Auto) 0.1 07/15/19 16:25: Sodium 140, Potassium 3.7, Chloride 101, Carbon Dioxide 32 H, Anion Gap 10.7, BUN 19 H, Creatinine 0.80, Estimated Creat Clear 63, Estimated GFR 70, Est GFR ( Amer) 85, Glucose 112 H, Calcium 9.9, Total Bilirubin 0.5, AST 36, ALT 19, Alkaline Phosphatase 133 H, Total Protein 7.4, Albumin 4.4, Globulin 3.0, Albumin/Globulin Ratio 1.5 07/15/19 16:25: SARS-CoV-2 IgG Ab (Rapid) Negative, SARS-CoV-2 IgM Ab (Rapid) Negative 07/15/19 17:10: Blood Type B Positive, Antibody Screen Negative I & O for Last 24 h
[2019-07-16 07:27] LABS: Basophils # 0.1 K/mm3 (0-0.2); Basophils % 1.1 % (0.1-2.0); Eosinophils # 0.2 K/mm3 (0.0-0.4); Eosinophils % 1.8 % (0.1-12.0); Hematocrit 37.6 % (37.0-47.0); Lymphocytes # 1.8 K/mm3 (0.7-4.5); Lymphocytes % 22.7 % (10-50); Mean Corpuscular HGB Conc 33.1 g/dL (31.8-35.4); Mean Corpuscular Hemoglobin 29.7 pg (27.0-31.2); Mean Corpuscular Volume 89.9 fl (81-99); Monocytes # 0.4 K/mm3 (0.1-1.0); Monocytes % 5.4 % (1.7-9.3); Neutrophils # 5.5 K/mm3 (1.8-7.8); Platelet Count 227 K/mm3 (142-424); Red Blood Count 4.18 M/mm3 (4.20-5.40); Red Cell Distribution Width 13.6 % (11.5-17.5); White Blood Count 7.9 K/mm3 (4.8-10.8)
--- NOTE | 2019-07-16 07:27 | P.CONPHA_ITS ---
[facility] Pharmacy VTE Monitoring - Patient Demographics Admission date: 07/15/19 Report Date: 07/16/19 Time: 07:27 Allergies/Adverse Reactions: Patient Allergies ibuprofen [IBUPROFEN] Allergy (Intermediate, Verified 06/09/19 13:53) I-RASH latex [LATEX] Allergy (Intermediate, Verified 06/09/19 13:53) I-RASH Penicillins [PENICILLINS] Allergy (Intermediate, Verified 06/09/19 13:53) I-RASH poison eladio extract [POISON ELADIO EXTRACT] Allergy (Unknown, Verified 06/09/19 13:53) S-BLISTERING WELTS cefoxitin Allergy (Verified 06/09/19 13:53) ANCHOVIES Allergy (Severe, Uncoded 06/09/19 13:53) NA-NAUSEA/VOMITING IV CONTRAST Allergy (Severe, Uncoded 06/09/19 13:53) I-RASH Height: 1.7 m Weight: 79.379 kg Patient Problems: Current Active Problems Hip fracture (Acute) Femoral neck fracture (Acute) Atrial fibrillation (Acute) HTN (hypertension) (Acute) - VTE Risk Labs: VTE Related Lab Results Hgb 14.1 g/dL (12.2-16.2) 07/15/19 16:25 Hct 41.9 % (37.0-47.0) 07/15/19 16:25 Plt Count 267 K/mm3 (142-424) 07/15/19 16:25 BUN 19 mg/dl (7-17) H 07/15/19 16:25 Creatinine 0.80 mg/dl (0.52-1.04) 07/15/19 16:25 Estimated Creat Clear 63 mL/min (50-200) 07/15/19 16:25 Was VTE Risk Assessment Performed: Yes VTE Score: 5 VTE Risk Level: Low Risk - Prophylaxis VTE Prophylaxis Ordered?: Yes Types of VTE Prophylaxis: IPCS Thigh High Location of Applied Device: Right Leg - VTE Diagnosis Confirmed Treatment or plan recommended: Continue Current Treatment
[2019-07-16 07:31] LABS: Anion Gap 8.2 mEq/L (5-15); Blood Urea Nitrogen 15 mg/dl (7-17); Calcium 9.3 mg/dl (8.4-10.2); Carbon Dioxide 34 mmol/L (22.0-30.0); Chloride 99 mmol/L (98-107); Creatinine Clearance Estimated 63 mL/min (50-200); Estimated Glomerular Filt Rate 70 ml/min (>60); GFR (African American) 85 ML/MIN (>60); Glucose 96 mg/dl (74-100); Potassium 4.2 mmoL/L (3.5-5.1); Sodium 137 mmol/L (136-145)
--- NOTE | 2019-07-16 07:47 | PC.NURSE ---
REPORT RECIEVED FROM Deondre GAMEZ RN
[2019-07-16 08:14] LABS: Hemoglobin 12.4 g/dL (12.2-16.2)
--- NOTE | 2019-07-16 08:18 | PC.NURSE ---
RT AT BEDSIDE PERFORMING EKG AT THIS TIME.
--- NOTE | 2019-07-16 08:19 | ECG_ITS ---
APPROVED REPORT Exam: Resting ECG HR:78 bpm ECG Measurements Heart Rate 78 AXES NJ 140 P 52 QRSd 78 QRS 0 QT 400 T 60 QTc 456 <Conclusion> Normal sinus rhythm Cannot rule out Anterior infarct, age undetermined Abnormal ECG Electronically signed by : Deion Stone, 07/18/2019 07:14:40
[2019-07-16 10:08] LABS: INR 0.92 (0.9-1.1); Prothrombin Time 9.6 seconds (9.4-11.8)
--- NOTE | 2019-07-16 15:28 | PC.NURSE ---
1510 report given to preop RN's at this time.
--- NOTE | 2019-07-16 17:05 | P.PN_ITS ---
[facility] Anesthesia Checklist - Structural Data Admitted From: Inpatient Planned Operative Procedure/s: orif l hip Consent for Planned Operative Procedure(s) Verified: Yes - Additional verifications Anesthesia Reactions: No - Airway Assessment C-Spine Mobility Assessed: Yes TMJ Mobility Assessed: Yes Dentition: Poor Dentition - Neurological Assessment Level of Consciousness: Awake, Alert, Appropriate - Anesthesia Plan Anesthesia Risk discussed: Yes Anesthesia Plan: Verified ASA Class: III Anesthesia Type: MAC w/Spinal [facility] History I have reviewed the patient's past medical history: Yes Medical History: Reports:: Atrial Fibrillation, Gastroesophageal Reflux Disease(GERD), Gastrointestinal Bleed, Hiatal Hernia, Hyperlipidemia, Hypertension Denies:: Diabetes Mellitus Type 1, Diabetes Mellitus Type 2, Internal Pacemaker, Lung Disease, Seizures *Have you ever received a pneumonia vaccine?: Yes *Have you received a flu vaccine this season?: Yes Other Medical History: Reports: Arthritis, Fibromyalgia, Other Anesthesia experience/problems:: none Laterality Cases: Bilateral: Tonsillectomy Other Surgeries: Yes: Appendectomy, Colonoscopy, Hernia Repair, Hysterectomy-Total, Tubal Ligation, Other. No: Pacemaker Amputation: No Fractures: No - *Social History Educational Level: Completed High School Smoking Status: Never smoker Alcohol Intake: never Alcohol Intake Frequency:: a few times a month Substance Use Type: denies use *Occupational Status:: other Housing: house *Travel in the last 8 weeks: None Family Hx:: Cancer
--- NOTE | 2019-07-16 17:39 | XR_ITS ---
PROCEDURE: XR HIP LT 2-3V W/PELVIS CLINICAL INDICATION: PERCUTANEOUS CANNULATED SCREWS COMPARISON: No exams were available for comparison FINDINGS: Fluoroscopy time: 1 minutes and 23 seconds Fluoro is utilized for ORIF of the left hip. Multiple images are submitted during insertion of 3 cannulated screws within the left hip with good alignment IMPRESSION: Status post ORIF left hip with good alignment Dictated by: Cem Thomson MD 07/16/2019 18:24 Electronically signed by Cem Thomson MD in [place] 07/16/2019 18:24
--- NOTE | 2019-07-16 17:49 | P.PN_ITS ---
[facility] Anesthesia Record Part I Intake, IV Amount: 1,600 Estimated blood loss (mL): 20 Urine output (mL): 250 Blood Pressure: 147/65 SaO2: 99 Pulse Rate: 77 Respiratory Rate: 12 Temperature: 98.1 F Patient is:: Awake, Stable Stable to PACU at:: 17:45
--- NOTE | 2019-07-16 17:57 | XR_ITS ---
PROCEDURE: XR HIP LT 2-3V W/PELVIS CLINICAL INDICATION: s/p nailing left hip Follow-up hip surgery COMPARISON: XR HIP LT 2-3V W/PELVIS from 07/15/2019 FINDINGS: Status post ORIF F left hip with 3 the cannulated nails present with good alignment of the left femoral neck fracture. Femoral head is located.. Skin clips are present with a small amount of soft tissue gas. IMPRESSION: Good alignment status post ORIF left hip fracture Dictated by: Cme Thomson MD 07/16/2019 18:37 Electronically signed by Cem Thomson MD in [facility] 07/16/2019 18:37
--- NOTE | 2019-07-16 18:12 | HMH.OPNOTE ---
Date of procedure: 07/16/19 Pre-op Diagnosis:: L femoral neck fracture Post-op Diagnosis:: L femoral neck fracture Procedure performed:: L hip pinning (percutaneous cannulated screw fixation) Surgeon:: Nadja Hilton MD Stockbroking Dealer(s):: Chon Springer GENERAL PEDIATRICIAN:: Rommel Bates Anesthesia: MAC, spinal Estimated blood loss (mL): 10 Clinical Note:: 74yo F presents to the ED after a fall at home yesterday. She was walking her dog (Peanut), when the dog saw a squirrel and took off after it, jerking the leash. This caught her off guard and pulled her to the ground, landing on the left side; she had immediate pain in the L hip. She was able to get up on her own after awhile, and walked from the garage into the house. She took a tramadol and laid down for a few hours, hoping the pain would subside, but it did not; at that point her brought her to the ED for evaluation. She currently reports pain in the L groin, but no numbness or tingling in the leg. She had another fall earlier in the week, when the dog again pulled her to the ground and she hit her head on the pavement. There were no open wounds and her has been monitoring her pupillary reflexes, which he says have been equal and reactive; she reports a mild headache and is concerned she may've had a concussion. L hip pain is rated a 7 out of 10. Medical history is pertinent for atrial fibrillation, GERD, hiatal hernia, HL, HTN. She has undergone appendectomy, hernia repair, hysterectomy/BTL, and tonsillectomy. She reports current use of Eliquis, duloxetine, and a multivitamin. Multiple drug allergies. No recent illnesses reported, no cough/fever or exposure to sick individuals. She was seen and medically cleared for surgery by Dr. Smith; Eliquis was held on admission. I discussed treatment options with the patient, both surgical and non-surgical, including their respective risks & benefits. I recommended L hip pinning with 3 cannulated screws. I discussed the risks of non-surgical treatment, including prolonged immobility during healing with inherent risk of DVT/PE, pneumonia and pressure ulcers, as well and the possibility of fracture displacement with continued weightbearing, necessitating arthroplasty. I also discussed the risks of surgical treatment, including but not limited to bleeding, infection, avascular necrosis, persistent pain despite surgery, risk of hardware failure or screw cutout, need for later hardware removal and possible conversion to arthroplasty, the possible need for a cane or walker after surgery, and the risks of anesthesia. The patient vocalized understanding and has elected to proceed with surgery; informed consent was obtained. Operative findings:: Implants: Danae 6.5mm cannulated screws x3; all partially-threaded with 20mm threads 80, 85, 85 mm in length Operative note:: The patient was identified in preoperative holding and the left hip signed by myself. Informed consent was verified with the patient and all questions answered. She was evaluated by anesthesia and the decision was made to perform the procedure under a spinal anesthetic with sedation. The patient was then taken to the operating room, where spinal was administered on the cart; she was then transferred to the fracture table and sedation administered. 900mg clindamycin was infused intravenously, and the patient positioned on the fracture table with the left lower extremity secured in the appropriate leg padilla and the right hip dropped/extended and secured to the table out of way of c-arm and the left leg. No traction was applied to the left leg, which was then prepped and draped in the usual sterile fashion. Timeout was performed, identifying the correct patient, correct procedure, and correct site. The procedure was begun by utilizing the C-arm to obtain AP & lateral x-rays of the L hip. The fracture was nondisplaced and impacted, and no reduction maneuver was necessary. A guidepin was held over the exterior
--- NOTE | 2019-07-16 18:12 | HMH.ORTHPN ---
Subjective Date: 07/16/19 Time: 18:15 Principal diagnosis: L femoral neck fracture Interval history: The patient underwent L hip pinning this afternoon for non-displaced femoral neck fracture. Currently recovering in PACU. Performed under spinal anesthestic w/MAC, EBL <10cc. Received 1600cc LR, 250cc UOP. Vitals are stable in PACU, patient resting comfortably, no pain reported. PN: Obj Ex Vital signs: Temp Pulse Resp BP Pulse Ox 98.1 F 77 12 147/65 H 99 07/16/19 17:50 07/16/19 17:50 07/16/19 17:50 07/16/19 17:50 07/16/19 17:45 - Constitutional no acute distress - Routine HEENT Exam Head: Present: normocephalic Eye: Present: EOMI ENT: Present: mucous membranes moist - Routine Respiratory Exam Present: CTA bilaterally. Absent: wheezes - Routine Cardiovascular Exam Present: RRR - Routine Abdominal Exam Present: soft. Absent: distended - Routine Exam Comments: mcgregor to gravity with clear yellow urine - Routine Extremities Exam Comments: L hip dressing c/d/i, no strikethrough no sensation below waist from spinal; can feel the cold of ice pack on L hip little motor below waist; can wiggles toes of right foot slightly palpable pedal pulses BLE, feet warm/pink with BCR - Routine Skin Exam Present: warm - Routine Neurological Exam Present: alert, oriented X3, sensory deficit, motor deficit, normal tone, vision grossly intact, hearing grossly intact, normal speech. Absent: altered mental status, moving all extremities - Routine Psychiatric Exam Present: normal affect - Urinary Catheter Management Mcgregor Cath placed during this visit: no Progress Note: A&P (1) Femoral neck fracture Status: Acute Current Visit: Yes (2) Atrial fibrillation Status: Acute Current Visit: Yes (3) HTN (hypertension) Status: Acute Current Visit: Yes Assessment and Plan for All Diagnoses:: 74yo F POD 0 s/p L hip pinning for femoral neck fracture -- WBAT LLE -- PT/OT to eval -- finish 24hr antibiotic prophy -- pain control, SCDs BLE, encourage IS -- restart Eliquis tomorrow -- medical management per primary -- care management for dispo planning/DME
--- NOTE | 2019-07-16 18:26 | PC.NURSE ---
1799-radiology at bedside 1814-detailed report called to MELISSA Canales 1818-pt transported to 2nd floor via hospital bed w/lauro rails up per MELISSA Ramirez and [facility], s, pt stable upon discharge form pacu
--- NOTE | 2019-07-16 19:09 | PC.NURSE ---
report given to broderick
--- NOTE | 2019-07-16 21:37 | PC.NURSE ---
PT. POST OP BP ELEVATED, PT. REPORTS THIS IS NOT HER BASELINE; PT. RATED PAIN 6/10 AT 1999; DILAUDID ADMINISTERED PER APR, PT. REPORTS PAIN IS CURRENTLY 4/10. PT. DOES NOT WANT MD TO BE NOTIFIED ABOUT HYPERTENSION AND REPORTS THAT HER PAIN IS CONTROLLED AND SHE DOES NOT FEEL NAUSEOUS.
[2019-07-17] VITALS (7 sets, daily range): BP systolic 132–182; BP diastolic 72–87; PULSE 78–96; RESP 16–20; TEMP 36.5–37.8; O2SAT 92–95; BMI 28.7
[2019-07-17 07:12] LABS: Basophils % 0.3 % (0.1-2.0); Eosinophils # 0.1 K/mm3 (0.0-0.4); Eosinophils % 1.4 % (0.1-12.0); Hematocrit 38.2 % (37.0-47.0); Hemoglobin 12.7 g/dL (12.2-16.2); Lymphocytes # 1.5 K/mm3 (0.7-4.5); Lymphocytes % 17.1 % (10-50); Mean Corpuscular HGB Conc 33.1 g/dL (31.8-35.4); Mean Corpuscular Hemoglobin 29.6 pg (27.0-31.2); Mean Corpuscular Volume 89.3 fl (81-99); Mean Platelet Volume 7.8 fl (7.4-10.4); Monocytes # 0.4 K/mm3 (0.1-1.0); Monocytes % 4.4 % (1.7-9.3); Neutrophils # 6.7 K/mm3 (1.8-7.8); Neutrophils % 76.8 % (37.0-80.0); Platelet Count 232 K/mm3 (142-424); Red Blood Count 4.28 M/mm3 (4.20-5.40); Red Cell Distribution Width 13.6 % (11.5-17.5); White Blood Count 8.8 K/mm3 (4.8-10.8)
[2019-07-17 07:17] LABS: Chloride 99 mmol/L (98-107)
[2019-07-17 07:18] LABS: Sodium 137 mmol/L (136-145)
[2019-07-17 07:20] LABS: Blood Urea Nitrogen 6 mg/dl (7-17); Creatinine Clearance Estimated 66 mL/min (50-200); Estimated Glomerular Filt Rate 98 ml/min (>60); GFR (African American) 119 ML/MIN (>60)
[2019-07-17 07:21] LABS: Alanine Aminotransferase 14 U/L (12-78); Albumin Level 3.5 g/dl (3.5-5.0); Albumin/Globulin Ratio 1.3 (1.1-1.8); Alkaline Phosphatase 106 U/L (38-126); Aspartate Amino Transferase 24 U/L (14-36); Bilirubin,Total 0.5 mg/dl (0.2-1.3); Calcium 9.2 mg/dl (8.4-10.2); Carbon Dioxide 34 mmol/L (22.0-30.0); Globulin 2.7 g/dL (1.3-3.2); Glucose 111 mg/dl (74-100); Total Protein,Serum 6.2 g/dl (6.3-8.2)
--- NOTE | 2019-07-17 08:11 | P.PN_ITS ---
Internal Medicine - PN: Subj *Date: 07/17/19 *Time: 08:11 Interval history: Patient has no complaints this morning. She would like to know what her weightbearing status is. I did inform her she is allowed to bear weight as tolerated on the left leg. She underwent percutaneous screw fixation of her hip fracture yesterday and reports at present no pain. She has not been out of bed. Lin catheter remains in place. Exam Vital signs and Labs for Last 24 Hours: Temp Pulse Resp BP Pulse Ox 98.9 F 87 16 182/87 H 94 L 07/17/19 04:00 07/17/19 04:00 07/17/19 04:00 07/17/19 04:00 07/17/19 04:00 Laboratory Results - last 24 hr 07/16/19 05:15: Hgb 12.4 D 07/16/19 08:00: PT 9.6, INR 0.92 07/17/19 06:15: WBC 8.8, RBC 4.28, Hgb 12.7, Hct 38.2, MCV 89.3, MCH 29.6, MCHC 33.1, RDW 13.6, Plt Count 232, MPV 7.8, Neut % (Auto) 76.8, Lymph % (Auto) 17.1, Candler % (Auto) 4.4, Eos % (Auto) 1.4, Baso % (Auto) 0.3, Neut # (Auto) 6.7, Lymph # (Auto) 1.5, Candler # (Auto) 0.4, Eos # (Auto) 0.1, Baso # (Auto) 0.0 07/17/19 06:15: Sodium 137, Potassium 4.0, Chloride 99, Carbon Dioxide 34 H, Anion Gap 8.0, BUN 6 L D, Creatinine 0.60 D, Estimated Creat Clear 66, Estimated GFR 98, Est GFR ( Amer) 119 D, Glucose 111 H, Calcium 9.2, T otal Bilirubin 0.5, AST 24 D, ALT 14 D, Alkaline Phosphatase 106, Total Protein 6.2 L, Albumin 3.5, Globulin 2.7, Albumin/Globulin Ratio 1.3 I & O for Last 24 hours: Intake & Output 07/14/19 07/15/19 07/16/19 07/17/19 11:59 11:59 11:59 11:59 Intake Total 120 / 120 2433 / 2433 Output Total 800 / 800 2550 / 2550 Balance -680 / -680 -117 / -117 Weight 175 lb 183 lb 9 oz Narrative: Patient looks well and in no distress. Lungs remain clear. Heart has a regular rate and rhythm. Abdomen is soft. She is neurovascularly intact in the left lower leg and foot. Assessment and Plan (1) Femoral neck fracture Current visit: Yes Status: Acute Qualifiers: Fracture type: closed Laterality: left Category: Medical Code(s): S72.009A - Fracture of unspecified part of neck of unspecified femur, initial encounter for closed fracture (2) Atrial fibrillation Current visit: Yes Status: Acute Category: Medical Code(s): I48.91 - Unspecified atrial fibrillation (3) HTN (hypertension) Current visit: Yes Status: Acute Category: Medical Code(s): I10 - Essential (primary) hypertension - Assessment and plan all Dx Assessment and Plan for all problems:: 1. PT eval today. Patient has been informed of her weightbearing status and she is eager to get out of bed 2. Restart Eliquis this evening 3. Possible discharge tomorrow depending on PT eval
--- NOTE | 2019-07-17 11:52 | PC.NURSE ---
Lin discontinued. Pt up to ambulate, one assist, from bed to chair. Pt did very well and is now sitting in recliner.
--- NOTE | 2019-07-17 14:47 | PC.NURSE ---
Pt ambulated in hallway with PT and in room with nurse, tolerated very well. Pt reports that pain is well controlled with ice pack and norco. Pt gave herself bed bath without difficulty. Eating well, adequate urine output noted. Pt has been up to chair several hours.
--- NOTE | 2019-07-17 14:58 | HMH.PTEV ---
Physical Therapy Evaluation Rehab PT IP Evaluation Start: 07/16/19 18:20 Freq: ONCE Status: Active Protocol: Document 07/17/19 14:50 RYNE (Rec: 07/17/19 14:57 RYNE [id number]) Subjective/History History History Patient is a 74 year old female admitted to [facility] secondary to fall at home resulting in left femoral neck impacted non-displaced fracture requiring ORIF. Sx date 07/16/19. Pt reports injury occured while walking her dog with a leash and was pulled to the ground for the second time in 1 week. Pt lives at home with spouse. No steps to negotiate for entry/ exit of home. Subjective Subjective I'm feeling good. Rehab PT IP Eval Objective Appearance Patient Behavior Appropriate Patient Orientation Person,Place,Day of Month Difficulty following instructions none Speech Pattern Clear,Appropriate Ambulation Patient Able to Ambulate Yes Balance Ability to Arise Able, uses arms to help Sitting Balance Steady, safe Standing Balance Narrow stance w/o support Dynamic Sitting Balance Ability Normal Dynamic Standing Balance Ability Normal Transfers Chair Transfer Ability Contact Guard/Hand Hold Sit to Stand Chair Transfer Ability Contact Guard/Hand Hold Pain Left Hip Pain Intensity 3 ROM All Extremities PT ROM Status WFL MMT LLE PT MMT WFL Rehab PT IP prob,goals,plan Problems Date of Evaluation: 07/17/19 PT IP Problems Bed Mobility,Transfers,Gait, Balance,Self care,Safety Rehab Potential Rehab Potential Good Equipment Needs Assistive Devices None / NA Plan PT Intervention Plan Bed Mobility,Transfers,Gait, Balance,Self care,Safety, Therapeutic Exercise PT Plan Frequency BID Duration LOS Discharge Goals Bed Transfer Ability Independent Sit to Stand Chair Transfer Ability Independent Ambulation Assistive Device Rolling Walker Ambulation Distance (feet) 200 Discharge Plan PT Discharge Plan Suggest patient to discharg to home healt PT or outpatient PT. G -code Required No
--- NOTE | 2019-07-17 17:23 | P.PN_ITS ---
Subjective Date: 07/17/19 Time: 16:30 Principal diagnosis: L femoral neck fracture Interval history: Patient is status post LEFT hip cannulated screw fixation, post op day #1. Patient is sitting out in the chair; says she is doing well and reports no problems. Patient has minimal pain and says it's well-controlled with medication. No history of any nausea or vomiting. No history of any cough, chest pain, shortness of breath or palpitations. Patient says she is eating and drinking well. No history of any distal tingling or numbness. She says she mobilized well with physical therapy weightbearing as tolerated on the left side. PN: Obj Ex Vital signs: Temp Pulse Resp BP Pulse Ox 98.5 F 96 H 20 147/84 H 95 07/17/19 16:00 07/17/19 16:00 07/17/19 16:00 07/17/19 16:00 07/17/19 16:00 Narrative: Laboratory Results - last 24 hr 07/17/19 06:15: WBC 8.8, RBC 4.28, Hgb 12.7, Hct 38.2, MCV 89.3, MCH 29.6, MCHC 33.1, RDW 13.6, Plt Count 232, MPV 7.8, Neut % (Auto) 76.8, Lymph % (Auto) 17.1, Childress % (Auto) 4.4, Eos % (Auto) 1.4, Baso % (Auto) 0.3, Neut # (Auto) 6.7, Lymph # (Auto) 1.5, Childress # (Auto) 0.4, Eos # (Auto) 0.1, Baso # (Auto) 0.0 07/17/19 06:15: Sodium 137, Potassium 4.0, Chloride 99, Carbon Dioxide 34 H, Anion Gap 8.0, BUN 6 L D, Creatinine 0.60 D, Estimated Creat Clear 66, Estimated GFR 98, Est GFR ( Amer) 119 D, Glucose 111 H, Calcium 9.2, Total Bilirubin 0.5, AST 24 D, ALT 14 D, Alkaline Phosphatase 106, Total Protein 6.2 L, Albumin 3.5, Globulin 2.7, Albumin/Globulin Ratio 1.3 Exam General appearance: alert, active, awake, no acute distress Cardiovascular: regular rate & rhythm, normal peripheral pulses Respiratory: No respiratory distress noted, speaks in full sentences ABD: soft and non tender Neuro: alert, awake, oriented x 3 On examination of the lower extremities the limb lengths are equal. Thigh and calf are soft and nontender. On examination of the LEFT hip the dressings are clean, dry and intact. There is no soakage or strikethrough of the dressings. Distal pulses are 2+. Distal sensation is intact to light touch throughout. No motor deficits noted distally. - Urinary Catheter Management Lin Cath placed during this visit: no Progress Note: A&P (1) Femoral neck fracture Status: Acute Current Visit: Yes (2) Atrial fibrillation Status: Acute Current Visit: Yes (3) HTN (hypertension) Status: Acute Current Visit: Yes Assessment and Plan for All Diagnoses:: I have reviewed the clinical findings and progress with the patient. Patient is doing very well and reports no problems. Patient is mobilizing well weightbearing as tolerated on the LEFT side with the walker and to continue the same. Continue DVT prophylaxis. Discontinue IV fluids as she is eating and drinking well. Patient wants to be discharged home; as per the physical therapy, she is doing well and can be safely discharged home with either home health or outpatient physical therapy. From an orthopedic standpoint also, she can be discharged when medically appropriate. Recommend DVT prophylaxis for 6 weeks postop- the appropriate agents include Lovenox, Aspirin 325 mg, Xarelto (Rivaroxaban), Eliquis (apixaban) and Coumadin. Follow-up i with Dr. Chester in the office. Please feel free to call our office at [phone] for any orthopaedic questions. Continue medical management as per Dr. Smith.
[2019-07-18] VITALS: BP 172/83; PULSE 85; RESP 16; TEMP 36.9; O2SAT 95
[2019-07-18 04:00] VITALS: BP 128/90; PULSE 80; RESP 18; TEMP 36.8; O2SAT 92
--- NOTE | 2019-07-18 04:22 | PC.NURSE ---
patient has rested well throughout shift. ambulated to bathroom with standby assist. pain level has maintained below a 6 on pain scale. when treated for pain 1 norco successful in relieving it.
[2019-07-18 05:00] VITALS: BMI 28.8
--- NOTE | 2019-07-18 07:40 | HMH.DCSUM ---
General - General Admission date:: 07/15/19 Discharge date: 07/18/19 HPI HPI: 74-year-old female who fell landing on her left hip while walking her dogs and sustained a impacted femoral neck fracture was admitted on the evening of July 14. Orthopedic service has been consulted and anticipate surgery today. Patient had one fall earlier in the week striking the left side of her head and this morning reports her headache is causing more pain in her hip at the moment. After her fall yesterday she was unable to bear weight. She denies any loss of sensation in the left leg. Past medical history is significant for atrial fibrillation, fibromyalgia Hospital Course Hospital Course: Patient was admitted on the evening of July 14. She was admitted with IV fluids and both intravenous and oral narcotics for pain control. Orthopedic consultation was obtained. Plan was for surgery on July 15. Patient's Eliquis was held. Patient underwent percutaneous screw fixation of her left hip fracture on July 15. There were no complications. Postoperative care was routine and without complications as well. Patient was restarted on her Eliquis 24 hours after surgery. She will continue her Eliquis which will now serve as both DVT prophylaxis as well as stroke prevention for her atrial fibrillation. Patient did well postoperatively. On July 16 patient had PT eval. She did well with walker. She is weightbearing as tolerated. Home health PT or outpatient physical therapy services were recommended. Patient would prefer outpatient physical therapy services. Care management was consulted to arrange both PT services as well as obtaining a wheeled walker prior to discharge for the patient. Patient has underlying atrial fibrillation that is paroxysmal in nature. She had no atrial fibrillation during hospitalization. On July 17 patient was doing well. She was ambulating with a walker. Pain was minimal and controlled with oral narcotics. Orthopedic service deemed her appropriate for discharge. Patient was discharged home. She will follow-up with orthopedic surgery this week. She will begin physical therapy as an outpatient this week. Objective Vital signs: Temp Pulse Resp BP Pulse Ox 98.3 F 80 18 128/90 92 L 07/18/19 04:00 07/18/19 04:00 07/18/19 04:00 07/18/19 04:00 07/18/19 04:00 no acute distress - *Routine Respiratory Exam Present: CTA bilaterally - *Routine Cardiovascular Exam Present: RRR - *Routine Abdominal Exam Present: soft, normoactive bowel sounds. Absent: tenderness - *Routine Extremities Exam Present: pulses intact, normal capillary refill. Absent: clubbing, edema Comments: Surgical site is clean, dry and intact on the left hip DS: Diagnosis - Discharge Diagnosis (1) Femoral neck fracture Status: Acute (2) Atrial fibrillation Status: Acute (3) HTN (hypertension) Status: Acute Discharge Plan - Patient Discharge Instructions ACTIVITY: Continue current activity DIET: continue same diet - Follow up Plan Disposition: Home, Self-Skilled Nursing Medications: Home Medications Medication Instructions Recorded Confirmed Type Duloxetine HCl [Cymbalta] 30 mg PO BID 03/25/17 07/15/19 History Multivitamin [Multivitamins] 1 each PO DAILY 03/25/17 07/15/19 History apixaban 5 mg tablet 5 mg PO BID 04/16/18 07/15/19 History Hydrocod/Acet 5/325 mg [Sharon 1 tab PO Q4HP PRN #30 tablet 07/18/19 Rx 5/325mg tablet] Prescriptions/Medication Reconciliation: New Hydrocod/Acet 5/325 mg [Sharon 5/325mg tablet] 1 tab PO Q4HP PRN #30 tablet PRN Reason: Moderate To Severe Pain Continued apixaban 5 mg tablet 5 mg PO BID Multivitamin [Multivitamins] 1 each PO DAILY Duloxetine HCl [Cymbalta] 30 mg PO BID - Problem Reconciliation Problems Reviewed?: Yes
[2019-07-18 08:00] VITALS: BP 144/78; PULSE 88; RESP 16; TEMP 36.8; O2SAT 92
--- NOTE | 2019-07-18 10:16 | HMH.PHAINT ---
DISCHARGE COUNSELING COMPLETED ON PATIENT. NEW PRESCRIPTION FOR NORCO 5. VERIFIED THAT THIS WAS PRINTED. PATIENT IS TO CONTINUE ALL OTHER HOME MEDICATIONS. PATIENT VERBALIZED UNDERSTANDING AND HAD NO QUESTIONS AT THIS TIME. -MIYA WAYNE, FRACISCOD
[2019-07-19 07:35] LABS: Vitamin D 25 Hydroxy 46.5 ng/mL (30.0-100.0)
--- NOTE | 2019-07-19 09:18 | SW/DCPLANNER ---
RECEIVED REFERRAL FOR THIS PATIENT TO HAVE A ROLLING WALKER R/T HIP FRACTURE AND TO BE SET UP FOR OUT PATIENT PHYSICAL THERAPY....THIS PATIENT DISCHARGED OVER THE WEEKEND AND I MADE CONTACT WITH HER THIS MORNING AND SHE STATED SHE GOT HER WALKER AND ALREADY HAS AN APPT TO FOLLOW UP WITH DR PARKS ON JULY 28 AND WILL DO HER FIRST OUT PATIENT THERAPY APPT TODAY... SHE WAS MOST COMPLIMENTARY OF THE HOSPITAL AND STAFF...
== END 2019-07-18 11:47 | disposition home or self-care (01) | DRG 482 ==
LOC: ER 16:51 → OB 17:34 → 2ND 07-16 15:27
PROVIDERS: Orthopaedic Surgery; Admitting Provider Internal Medicine Adolescent Medicine; Emergency Provider Family Medicine; PCP Family Medicine; Visit Provider Family Medicine
PROC: 0QS734Z Reposition Left Upper Femur with Internal Fixation Device, Percutaneous Approach (ICD-10-PCS; principal; 2019-07-16 13:25)
DX: S72.012A Unspecified intracapsular fracture of left femur, initial encounter for closed fracture (principal); W01.0XXA Fall on same level from slipping, tripping and stumbling without subsequent striking against object, initial encounter; Z91.81 History of falling; Y92.017 Garden or yard in single-family (private) house as the place of occurrence of the external cause; I48.91 Unspecified atrial fibrillation; I10 Essential (primary) hypertension; Z90.710 Acquired absence of both cervix and uterus; Z91.040 Latex allergy status; Z88.1 Allergy status to other antibiotic agents; Z88.0 Allergy status to penicillin; Z91.041 Radiographic dye allergy status; Z91.013 Allergy to seafood
CPT/HCPCS: 27235; 36415; 73502; 73590; 73700; 76000; 80048; 80053; 82652; 85025; 85610; 86328; 86850; 93005; 96374; 96375; 97162; 99284; C1713; J2405

== ENCOUNTER → 2019-07-29 10:33 | Outpatient (CLI) | payer MEDICARE, BC, SELFPAY ==
--- NOTE | 2019-07-29 10:40 | XR_ITS ---
PROCEDURE: XR HIP LT 2-3V W/PELVIS CLINICAL INDICATION: s/p hip FX Follow-up fracture/ORIF COMPARISON: CT HIP LT WO CON from 07/15/2019 XR HIP LT 2-3V W/PELVIS from 07/16/2019 XR HIP LT 2-3V W/PELVIS from 07/16/2019 FINDINGS: Status post ORIF left femoral neck fracture. Three screws remain in place. There is good alignment. There is minimal impaction with minimal lateral displacement of the proximal fracture fragment. The most inferior of the 3 screws may be slightly distracted compared to the previous exam not flush with the cortex. Continued follow-up suggested. Skin clips are in place. There is a small sclerotic focus in the left ischial region and may be due to small bone island. Pelvic phleboliths noted. IMPRESSION: Good alignment status post ORIF left hip. There is questionable minimal distraction of the inferior screw. Dictated by: Cem Thomson MD 07/29/2019 13:34 Electronically signed by Cem Thomson MD in [place] 07/29/2019 13:34
== END ==
PROVIDERS: PCP Family Medicine; Visit Provider Orthopaedic Surgery
DX: S72.002D Fracture of unspecified part of neck of left femur, subsequent encounter for closed fracture with routine healing (principal)
CPT/HCPCS: 73502

== ENCOUNTER → 2019-08-13 10:35 | Outpatient (CLI) | payer MEDICARE, BC, SELFPAY ==
--- NOTE | 2019-08-13 10:44 | XR_ITS ---
PROCEDURE: XR HIP LT 2-3V W/PELVIS CLINICAL INDICATION: s/p hip fx COMPARISON: XR HIP LT 2-3V W/PELVIS from 07/29/2019 FINDINGS: There are no interval changes. Three screws traversing a reduced slightly impacted left femoral neck fracture is again noted. Hip joints are intact. Soft tissues are unremarkable. IMPRESSION: Status post left femoral neck ORIF, no change Dictated by: Michael Harley 08/13/2019 11:11 Electronically signed by Michael Harley in [place] 08/13/2019 11:11
== END ==
PROVIDERS: PCP Family Medicine; Visit Provider Orthopaedic Surgery
DX: S72.002A Fracture of unspecified part of neck of left femur, initial encounter for closed fracture (principal)
CPT/HCPCS: 73502

== ENCOUNTER → 2019-09-10 08:47 | Outpatient (CLI) | payer MEDICARE, BC, SELFPAY ==
--- NOTE | 2019-09-10 08:47 | XR_ITS ---
PROCEDURE: XR HIP LT 2-3V W/PELVIS CLINICAL INDICATION: left hip FX FU Follow-up fracture COMPARISON: XR HIP LT 2-3V W/PELVIS from 08/13/2019 FINDINGS: Status post left hip pinning. Three pins are in place stabilizing the transcervical femoral neck fracture with good alignment. There is mild lateral displacement of the femoral head as before. The joint spaces are well-preserved. No significant degenerative/arthritic changes. No erosive changes evident. Other findings:There are degenerative changes in the lumbar IMPRESSION: Good alignment status post ORIF left hip Dictated by: Cem Thomson MD 09/10/2019 15:10 Electronically signed by Cem Thomson MD in [place] 09/10/2019 15:10
--- NOTE | 2019-09-10 08:50 | MM_ITS ---
PROCEDURE: MM DIG SCREENING MAMM BI W/CAD DIGITAL BREAST TOMOSYNTHESIS INCLUDED Patient Age:74Y CLINICAL INDICATION: SCREENING Routine screening mammogram 74-year-old but no hormones but no new complaints but hysterectomy total. . Family history: Mother, maternal grandmother, maternal aunt with breast cancer COMPARISON: DIG MAMM-SCREEN SALMA from 06/29/2018 MM DIG MAMM DX UNILAT RT CAD from 03/17/2019 US BREAST RT COMPLETE from 03/17/2019 TECHNIQUE: Standard CC and MLO images were obtained. R2 CAD reviewed. Bilateral digital breast tomosynthesis included. FINDINGS: Moderate residual breast parenchymal elements again viewed. No new dominant nor suspicious mass. No suspicious calcifications Right breast. No new areas of significant concern Stable intramammary node at the upper-outer quadrant/far lateral right breast Scattered small areas of minimal densities right breast are stable. A few barely appreciable tiny punctate calcification right breast superiorly unchanged since 2018 Note history of bloody discharge February 2019 but ducts at the retroareolar region stable and unremarkable on today's mammogram. If bloody discharge should persist or recur consider follow-up ultrasound. Left breast no new areas of significant concern A bilateral follow-up 1 year recommended IMPRESSION: No significant new areas of concern. Adequate stable bilateral mammogram Bilateral follow-up 1 year recommended; and should be emphasized/encouraged in this patient with positive family history BI-RAD Category: 2 Benign Finding(s) FOLLOW-UP: 1YR 1 Year Follow-up (A letter has been sent to the patient regarding results of the study.) Dictated by: Evangelista Whitney MD 09/18/2019 10:37 Electronically signed by Evangelista Whitney MD in [place] 09/18/2019 10:37
== END ==
PROVIDERS: PCP Family Medicine; Visit Provider Family Medicine
DX: S72.002A Fracture of unspecified part of neck of left femur, initial encounter for closed fracture (principal); Z12.31 Encounter for screening mammogram for malignant neoplasm of breast
CPT/HCPCS: 73502; 77063; 77067

== ENCOUNTER 2019-09-22 13:00 | Outpatient (RCR) | payer MEDICARE, BC, SELFPAY ==
--- NOTE | 2019-07-21 11:16 | HMH.PTOPEV ---
PT Outpatient Evaluation Rehab PT Outpatient Evaluation Start: 07/21/19 10:24 Freq: Status: Active Protocol: Document 07/21/19 10:25 KAYA (Rec: 07/21/19 11:16 KAYA [id number]) Electronically Signed By Alonzo Dasilva, PT 07/21/19 10:25 Outpatient Therapy Subjective History Subjective History Pt reports fall d/t dog pulling her down on 07/14, resulted in L hip fx, ORIF sx. on 07/15 L hip. Pt reports lingering L hip soreness pain in groin and lateral aspect, however, 'getting around good with walker'. PMH: B KNEE OA Chief Complaint Pain,Stiff,Weakness Symptom Type Ache,Dull Symptoms Relieved By Rest/Positioning,Prescription Meds Symptoms Aggravated By Standing,Walking Prior Functional Limitations None Current Functional Limitations Housework,Standing,Squatting, Walking Symptom Description Constant but Variable Level of pain today (0-10) 6 Pain scale - at its best (0-10) 4 Pain scale - at its worst (0-10) 7 Hip/Knee Eval Gait Observation General Gait Pattern Observation Antalgic Gait Assistive Device Assistive Devices Rolling / Wheeled Walker Palpation Tenderness left Knee Palpation Overall Comment L HIP GRT TRO 1-2/4, HIP FLXR MM 2/4 Hip Palpation Findings Tenderness MMT right Hip Flexion Strength Grade 4 Good Hip Abduction Strength Grade 4 Good Hip Adduction Strength Grade 4 Good Hip Extension Strength Grade 4 Good Hip External Rotation Strength Grade 4 Good Hip Internal Rotation Strength Grade 4 Good Knee Extension Strength Grade 4 Good Knee Flexion Strength Grade 4 Good left Hip Flexion Strength Grade 4- Good- Hip Abduction Strength Grade 3+ Fair+ Hip Adduction Strength Grade 4- Good- Hip Extension Strength Grade 4- Good- Hip External Rotation Strength Grade 4- Good- Hip Internal Rotation Strength Grade 4- Good- Knee Extension Strength Grade 4 Good Knee Flexion Strength Grade 4 Good ROM Hip Flexion w/Knee Flexed Passive Range 0-100 of Motion (degrees) Hip External Rotation Passive Range of 0-40 Motion (degrees) Hip Internal Rotation Passive Range of 0-40 Motion (degrees) Outpatient Therapy Assessment Impairments Problems/Impairmments Palpation Tenderness,Impaired Range of Motion,Impaired Strength,Impaired Gait Pattern ,Impaired Walking,Impaired
== END 2019-09-22 13:05 | disposition home or self-care (01) ==
LOC: PT 13:00
PROVIDERS: PCP Family Medicine; Visit Provider Orthopaedic Surgery
DX: S72.002D Fracture of unspecified part of neck of left femur, subsequent encounter for closed fracture with routine healing (principal)
CPT/HCPCS: 97010; 97014; 97110; 97163; 97164; G0283

== ENCOUNTER → 2019-10-01 08:50 | Outpatient (CLI) | payer MEDICARE, BC, SELFPAY ==
--- NOTE | 2019-10-01 08:56 | XR_ITS ---
PROCEDURE: XR SHOULDER RT MIN 2V CLINICAL INDICATION: rt shoulder pain COMPARISON: No exams were available for comparison FINDINGS: The humeral head and glenoid appear normal. The clavicle is intact and the AC joint appears normal. There is a slightly lateral downsloping acromion process which could possibly predispose to a mild degree of impingement syndrome. There are no soft tissue calcifications. IMPRESSION: Slightly lateral downsloping acromion process otherwise unremarkable right shoulder Dictated Dr. Carlos Oliveira MD 10/01/2019 09:21 Dr. Carlos Piña MD in [place] 10/01/2019 09:21
== END ==
PROVIDERS: PCP Family Medicine; Visit Provider Orthopaedic Surgery
DX: M25.511 Pain in right shoulder (principal)
CPT/HCPCS: 73030

== ENCOUNTER → 2019-10-29 09:21 | Outpatient (CLI) | payer MEDICARE, BC, SELFPAY ==
--- NOTE | 2019-10-29 09:29 | XR_ITS ---
PROCEDURE: XR HIP LT 2-3V W/PELVIS CLINICAL INDICATION: left hip fx fu COMPARISON: XA XR HIP LT 2-3V W/PELVIS from 07/16/2019 CR XR HIP LT 2-3V W/PELVIS from 07/29/2019 CR XR HIP LT 2-3V W/PELVIS from 08/13/2019 CR XR HIP LT 2-3V W/PELVIS from 09/10/2019 FINDINGS: Three pins are present within the left hip stabilizing the left femoral neck fracture with good alignment. There is minimal lateral displacement of the proximal fracture fragment as before. IMPRESSION: No change status post ORIF left femoral neck fracture with good alignment Dictated by: Cem Thomson MD 10/29/2019 10:42 Cem Thomson MD in [place] 10/29/2019 10:42
== END ==
PROVIDERS: PCP Family Medicine; Visit Provider Orthopaedic Surgery
DX: S72.002A Fracture of unspecified part of neck of left femur, initial encounter for closed fracture (principal)
CPT/HCPCS: 73502

== ENCOUNTER → 2019-11-05 08:03 | Outpatient (CLI) | payer MEDICARE, BC, SELFPAY ==
--- NOTE | 2019-11-05 08:07 | XR_ITS ---
PROCEDURE: XR SHOULDER RT MIN 2V CLINICAL INDICATION: reinjured shoulder COMPARISON: CR XR SHOULDER RT MIN 2V from 10/01/2019 FINDINGS: The right clavicle is intact and the AC joint appears normal. The humeral head and glenoid appear grossly normal. There is minor cortical irregularity of the greater tuberosity of the humeral head. Again noted is a slightly lateral downsloping but there is no significant subacromial stenosis. There are no soft tissue calcifications. IMPRESSION: Possible mild predisposition to impingement syndrome and suggest clinical correlation, no acute pathology identified. Dictated by: Dr. Carlos Piña MD 11/05/2019 08:30 Dr. Carlos Piña MD in [place] 11/05/2019 08:30
== END ==
PROVIDERS: PCP Family Medicine; Visit Provider Orthopaedic Surgery
DX: M25.511 Pain in right shoulder (principal)
CPT/HCPCS: 73030

== ENCOUNTER → 2019-11-10 15:46 | Outpatient (CLI) | payer MEDICARE, BC, SELFPAY ==
--- NOTE | 2019-11-10 15:46 | MR_ITS ---
PROCEDURE: MR SHOULDER RT WO CON CLINICAL INDICATION: shoulder pain PT STATES SHE HAD BEEN GOING TO PT FOR POSIBBLE ROTATOR CUFF TEAR AND LIFTED RT ARM AND POSSIBLY TORE HER BICEPS TENDON. PRIOR RT SHOULDER XRAY DONE 11/05/19 COMPARISON: CR XR SHOULDER RT MIN 2V from 11/05/2019 TECHNIQUE: Routine multiplanar multi echo sequences are performed without gadolinium enhancement. FINDINGS: There is moderate acromioclavicular arthropathy and hypertrophy with subacromial stenosis. Subacromial space is approximately 3 mm. There is thinning of the supraspinatus tendon distally with a suspected complete tear of the supraspinatus tendon with mild retraction of the musculotendinous fibers. There is a question of a few intact fibers superiorly. There is mild thickening of the infraspinatus and subscapularis tendon with some increase in T2 signal consistent with tendinopathy/tendinosis. No obvious labral tear. Fluid is present posterior to the supraspinatus tendon, in the sub coracoid region, and around the humeral head. There is increased T2 signal within the bicipital tendon and she in the bicipital groove at the proximal humeral area with loss of signal more superior to this region which may represent a bicipital tendon tear to the long head of the biceps. There is some cortical regularity of the humeral head with some subchondral cystic changes noted. Motion artifact does somewhat obscure fine detail. There are osteoarthritic changes with mild superior location of the humeral head. IMPRESSION: 1. 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 There is a question of a few intact fibers superiorly at the supraspinatus tendon. 2. Osteoarthritis with superior location of the humeral head with subcoracoid and subdeltoid bursitis. There is irregularity of the humeral head with sub chondral cystic changes 3. Bicipital tendon tendinitis with possible tear of the bicipital tendon superiorly. Dictated by: Cem Thomson MD 11/13/2019 07:43 Cem Thomson MD in [place] 11/13/2019 07:43
== END ==
PROVIDERS: PCP Family Medicine; Visit Provider Orthopaedic Surgery
DX: M75.40 Impingement syndrome of unspecified shoulder (principal)
CPT/HCPCS: 73221

== ENCOUNTER 2019-11-17 09:00 | Outpatient (RCR) | payer MEDICARE, BC, SELFPAY ==
--- NOTE | 2019-10-07 14:11 | HMH.PTOPEV ---
PT Outpatient Evaluation Rehab PT Outpatient Evaluation Start: 10/07/19 13:10 Freq: Status: Active Protocol: Document 10/07/19 13:10 KAYA (Rec: 10/07/19 14:05 KAYA [id number]) Electronically Signed By Alonzo Dasilva, PT 10/07/19 13:10 Outpatient Therapy Subjective History Subjective History Pt reports h/o chronic R SH pain since trxn injury after getting 'jerking by dog while holding onto leash' in April. Pt reports improved pain since april, however, still has anterior R SH pain, with referred pain into R bicep/ tricep area, as well as mm soreness in R periscap mm, R UTmm. Chief Complaint Pain,Stiff,Weakness Symptom Type Ache,Sharp,Dull Symptoms Relieved By Rest/Positioning,Ice Symptoms Aggravated By Physical Activity,Lifting Prior Functional Limitations Reaching,Lifting,Housework, Dressing Current Functional Limitations Reaching,Lifting,Housework, Dressing Symptom Description Constant but Variable Level of pain today (0-10) 2 Pain scale - at its best (0-10) 1 Pain scale - at its worst (0-10) 8 Shoulder/Elbow Eval Shoulder Objective Measurements Palpation Tenderness tenderness shoulder exam standard right tenderness over the bicipital tendon right shoulder exam standard Shoulder Palpation Findings Tenderness Shoulder Palpation Overall Comment 2-3/4 supra- insertion, 3/4 ant. jt line, 2/4 post RTC Posture Scapula Posture Sitting Position (L) Protracted,(R) Protracted Scapular Posture Standing Position (L) Protracted,(R) Protracted Flexibilty Deficits Pectoralis Major Muscle Length (R) Mild Tightness,(L) Mild Tightness Upper Trapezius Muscle Length (R) Moderate Tightness Shoulder ROM Right Shoulder Abduction Active Range of 0-104 Motion (degrees) Shoulder Flexion Active Range of Motion 0-141 (degrees) Query Text: Shoulder External Rotation Active Range 0-80 of Motion (degrees) Shoulder Internal Rotation Active Range 0-75 of Motion (degrees) Shoulder MMT Anterior Deltoid Strength Grade 4- Good- Lower Trapezius Strength Grade 3 Fair Middle Trapezius Strength Grade 3+ Fair+ Rhomboids Strength Grade 3 Fair Serratus Anterior Strength Grade 4 Good Upper Trapezius/Levator Scapulae 5 Normal Shoulder Abduction Strength Grade 4- Good- Shoulder Extension Strength Grade
--- NOTE | 2019-11-09 09:28 | HMH.RHREAS ---
Rehab Reassessment Rehab OP Re-assessment Start: 11/09/19 08:57 Freq: Status: Active Protocol: Document 11/09/19 08:58 KAYA (Rec: 11/09/19 09:28 KAYA [id number]) Electronically Signed By Alonzo Dasilva, PT 11/09/19 08:58 Rehab Re-assessment Subjective Subjective Pt reports improved R SH/UE pain since exacerbation last friday (9 days ago), however, reports MD has diagnosed R SH w/'biceps tear', and 'I'm scheduled for an MRI tomorrow' . Pt reports / R SH pain this am, and feels ~50% better since I eval, and taking into consideration most recent exacerbation. Objective Objective Notes AROM: R SH FLX 0-155 ABD 0-155 MMT: R SH FLX 4-/5, ABD 4-/5, IR 4/5, ER 4-/5 TTP: R SH LHB 0-02/20, ANT RTC 1 -03/23 Assessment Progress Assessment Progressing as Expected Assessment Notes PT W/IMPROVED ROM, STRENGTH, AND TTP Patient goals met STG'S 07/25 LTG'S 04/25 Goals Not Met STG'S 03/27, LTG'S 07/26 Plan Plan PT TO CONT. W/SKILLED P.T. TO MAKE FURTHER IMPROVEMENTS IN R SH RTC STRENGTHENING, AND R SH AROM IN AN EFFORT TO IMPROVE OVERALL FUNCTION DESPITE MECHANICAL INSULT Frequency of Therapy 1-2X/WK Duration of therapy 2-4WKS Time and Billing Re-Eval Time 15 Re-Eval Billing Units 0 PHYSICIAN CERTIFICATION: I certify the specified therapy services for Mimi Arellano are required, authorized, and reviewed every 30 days.
== END 2019-11-17 10:02 | disposition home or self-care (01) ==
LOC: PT 09:00
PROVIDERS: PCP Family Medicine; Visit Provider Orthopaedic Surgery
DX: M25.511 Pain in right shoulder (principal)
CPT/HCPCS: 97010; 97014; 97016; 97035; 97110; 97163; 97164; G0283

== ENCOUNTER → 2019-12-17 09:33 | Outpatient (CLI) | payer MEDICARE, BC, SELFPAY ==
--- NOTE | 2019-12-17 09:41 | XR_ITS ---
PROCEDURE: XR HIP LT 2-3V W/PELVIS CLINICAL INDICATION: Lt hip F/U Follow-up surgery COMPARISON: CR XR HIP LT 2-3V W/PELVIS from 10/29/2019 FINDINGS: There are 3 pins in the left hip which are in good position stabilizing the old left femoral neck fracture. IMPRESSION: Status post pinning left hip with good alignment with no change in no acute finding Dictated by: Cem Thomson MD 12/17/2019 10:16 Cem Thomson MD in [place] 12/17/2019 10:16
== END ==
PROVIDERS: PCP Family Medicine; Visit Provider Orthopaedic Surgery
DX: S72.002A Fracture of unspecified part of neck of left femur, initial encounter for closed fracture (principal)
CPT/HCPCS: 73502

== ENCOUNTER → 2020-02-24 11:05 | Outpatient (CLI) | payer MEDICARE, BC, SELFPAY ==
[2020-02-24 11:20] LABS: Adenovirus F 40/41, stool Not Detected (NotDetected); Astrovirus Not Detected (NotDetected); Campylobacter Not Detected (NotDetected); Cryptosporidium Not Detected (NotDetected); Cyclospora Cayetanesis Not Detected (NotDetected); Entamoeba histolytica Not Detected (NotDetected); Enteroaggregative E coli Not Detected (NotDetected); Enteropathogenic E coli Not Detected (NotDetected); Enterotoxigenic E coli Not Detected (NotDetected); Giardia lamblia Not Detected (NotDetected); Norovirus Not Detected (NotDetected); Plesimonas Shigalloides, PCR Not Detected (NotDetected); Rotavirus A Not Detected (NotDetected); Salmonella, PCR Not Detected (NotDetected); Sapovirus Not Detected (NotDetected); Shiga-like toxin E coli Not Detected (NotDetected); Shigella Enterovasive E coli Not Detected (NotDetected); Vibrio Cholerae Not Detected (NotDetected); Vibrio, PCR Not Detected (NotDetected); Yersinia Entercolitica, PCR Not Detected (NotDetected)
[2020-02-24 11:29] LABS: Basophils # 0.1 K/mm3 (0-0.2); Basophils % 0.7 % (0.1-2.0); Eosinophils # 0.2 K/mm3 (0.0-0.4); Eosinophils % 1.9 % (0.1-12.0); Hemoglobin 11.2 g/dL (12.2-16.2); Lymphocytes # 2.6 K/mm3 (0.7-4.5); Mean Corpuscular HGB Conc 30.4 g/dL (31.8-35.4); Mean Corpuscular Hemoglobin 27.2 pg (27.0-31.2); Mean Corpuscular Volume 89.5 fl (81-99); Mean Platelet Volume 8.5 fl (7.4-10.4); Monocytes # 0.4 K/mm3 (0.1-1.0); Monocytes % 4.6 % (1.7-9.3); Neutrophils # 5.7 K/mm3 (1.8-7.8); Neutrophils % 63.7 % (37.0-80.0); Platelet Count 308 K/mm3 (142-424); Red Blood Count 4.13 M/mm3 (4.20-5.40)
[2020-02-27 09:47] LABS: Clostridium Difficile A/B, PCR Detected (NotDetected)
== END ==
PROVIDERS: PCP Family Medicine; Visit Provider Family Medicine
DX: R19.7 Diarrhea, unspecified (principal); B96.89 Other specified bacterial agents as the cause of diseases classified elsewhere; A04.72 Enterocolitis due to Clostridium difficile, not specified as recurrent
CPT/HCPCS: 36415; 85025; 87506

== ENCOUNTER → 2020-04-24 08:32 | Outpatient (CLI) | payer MEDICARE, BC, SELFPAY ==
--- NOTE | 2020-04-24 08:51 | XR_ITS ---
PROCEDURE: XR HIP LT 2-3V W/PELVIS CLINICAL INDICATION: left hip pain COMPARISON: CR XR HIP LT 2-3V W/PELVIS from 12/17/2019 FINDINGS: There pin placement within the left hip with an old femoral neck fracture. No acute fracture or dislocation. There are minimal osteoarthritic changes of the left hip. IMPRESSION: Minimal osteoarthritic change. Status left hip pinning Dictated by: Cem Thomson MD 04/24/2020 10:16 Cem Thomson MD in [place] 04/24/2020 10:16
[2020-04-24 11:23] LABS: Blood Urea Nitrogen 15 mg/dl (7-17); Estimated Glomerular Filt Rate 70 ml/min (>60); GFR (African American) 85 ML/MIN (>60)
== END ==
PROVIDERS: Orthopaedic Surgery; PCP Family Medicine; Visit Provider Podiatrist
DX: M25.552 Pain in left hip (principal)
CPT/HCPCS: 36415; 73502; 82565; 84520

== ENCOUNTER → 2020-04-24 10:12 | Outpatient (CLI) | payer MEDICARE, BC, SELFPAY | PROVIDERS: Visit Provider Orthopaedic Surgery | DX: M25.552 Pain in left hip (principal) | CPT/HCPCS: 36415; 73502; 82565; 84520 ==

== ENCOUNTER → 2020-04-26 14:55 | Outpatient (CLI) | payer MEDICARE, BC, SELFPAY ==
--- NOTE | 2020-04-26 15:05 | MR_ITS ---
PROCEDURE: MR HIP LT WO/W CON CLINICAL INDICATION: LT hip pain Fx left hip in June 2019 with pinning. Pain continues, questions avascular necrosis. COMPARISON: CR XR HIP LT 2-3V W/PELVIS from 04/24/2020 TECHNIQUE: Routine multiplanar multi echo sequences are performed without gadolinium enhancement. FINDINGS: There are left hip pins present which creating moderate amount artifact. There does appear to be some signal alteration with the cortical and subcortical region the left femoral head with decreased T1 and slight heterogeneous increase in T2 signal with some minimal enhancement. There is also some minimal flattening or possible minimal cortical collapse at this region. This is suspicious for avascular necrosis. There is a 10 mm area of decreased T1 and increased T2 signal within the supra acetabular region medially which does demonstrate contrast enhancement. There is a small left hip joint effusion. There is mild widening of the hip joint space on the left Incidental note is made of a 2.8 cm left ovarian cyst. Diverticulosis also noted of the sigmoid colon. IMPRESSION: 1. Artifact present from left hip pins somewhat limiting the exam. 2. Signal alteration in the left femoral head suspicious for avascular necrosis. Evaluation of this area is limited by artifact from the hip pins. 3. Small left hip joint effusion. 4. Ill-defined 10 mm area of signal alteration in the super acetabular region medially which may be related to bone marrow edema. This however does show some minimal enhancement which could also be with seen with infection. Neoplasm is felt to be less likely. Follow-up is suggested. Dictated by: Cem Thomson MD 04/30/2020 11:33 Cem Thomson MD in [place] 04/30/2020 11:33
== END ==
PROVIDERS: PCP Family Medicine; Visit Provider Orthopaedic Surgery
DX: M25.552 Pain in left hip (principal)
CPT/HCPCS: 73723; A9576

== ENCOUNTER → 2020-05-17 09:45 | Outpatient (CLI) | payer MEDICARE, BC, SELFPAY ==
--- NOTE | 2020-05-17 09:47 | US_ITS ---
PROCEDURE: US TRANSVAGINAL CLINICAL INDICATION: ABD OR PELVIC SWELLING, MASS,OR LUMP, LLQ COMPARISON: MR MR HIP LT WO/W CON from 04/26/2020 FINDINGS: Hysterectomy is noted. No evidence of mass lesions. No focal anechoic lesions noted in the left adnexa to suggest cystic lesions. No focal mass lesions. No free fluid. IMPRESSION: Hysterectomy is noted. No focal mass lesions within the limitations of the study. Dictated by: Carmelina Tobin 05/17/2020 11:55 Carmelina Tobin in [place] 05/17/2020 11:55
== END ==
PROVIDERS: PCP Family Medicine; Visit Provider Family Medicine
DX: R19.04 Left lower quadrant abdominal swelling, mass and lump (principal)
CPT/HCPCS: 76830

== ENCOUNTER → 2020-05-23 14:33 | Outpatient (POV) | payer MEDICARE, BC, SELFPAY | PROVIDERS: Visit Provider Dermatology | DX: Z00.00 Encounter for general adult medical examination without abnormal findings (principal) ==

== ENCOUNTER → 2020-06-05 11:11 | Outpatient (CLI) | payer MEDICARE, BC, SELFPAY ==
--- NOTE | 2020-06-05 11:11 | IR_ITS ---
PROCEDURE: IR FLUORO GUIDED NEEDLE PLACE CLINICAL INDICATION: LT hip injection COMPARISON: No exams were available for comparison FINDINGS: Fluoroscopy time: 24 seconds. Exam is performed by Dr. Hanley. Images submitted demonstrate contrast injected into the intra capsular region of the right hip joint. [address] IMPRESSION: Status post right hip joint injection. Dictated by: Cem Thomson MD 06/05/2020 19:15 Cem Thomson MD in [place] 06/05/2020 19:15
--- NOTE | 2020-06-07 17:14 | HMH.PROC ---
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 Consent was reviewed and signed by both myself and the patient, all questions were answered. The patient was placed supine on the fluoroscopy table and the L hip exposed. The anterior groin/hip and proximal thigh were prepped with chlorhexidine. Timeout was performed. Next, the fluoro machine was brought in over the patient?s hip and a picture taken to confirm adequate visualization of the joint. I donned a pair of sterile surgical gloves; the remainder of the procedure was performed in a sterile fashion. A 20G spinal needle was held over the hip to approximate my desired entry point on the skin. Once this was established, a 25G needle was used to infiltrate injection site and estimated needle track with 5cc 1% lidocaine w/o epinephrine. Once the injection site was anesthetized, the spinal needle was advanced through the same puncture site and deeper towards the hip joint. Using fluoro, it was confirmed that the needle was advanced until it was at the level of the femoral neck. The stylus was removed from the spinal needle and 2cc of iodinated contrast solution was injected through the spinal needle. Fluoro was taken again, and the dye confirmed intra-capsular placement of the spinal needle, indicating a successful intraarticular injection. The syringe with contrast was removed, keeping the spinal needle in place, and 40mg Kenalog with 2cc 1% lidocaine w/o epinephrine was injected through the needle into the hip joint. A final fluoro picture was taken, confirming successful intraarticular injection. The spinal needle was removed from the hip and a band-aid was placed over the injection site. Specimens: none Condition/Disposition: good / home Complications: none
== END ==
PROVIDERS: PCP Family Medicine; Visit Provider Orthopaedic Surgery
DX: M87.052 Idiopathic aseptic necrosis of left femur; S72.002A Fracture of unspecified part of neck of left femur, initial encounter for closed fracture; M25.552 Pain in left hip
CPT/HCPCS: 20610; 77002; Q9967

== ENCOUNTER → 2020-09-13 13:20 | Outpatient (CLI) | payer MEDICARE, BC, SELFPAY ==
--- NOTE | 2020-09-13 13:22 | MM_ITS ---
PROCEDURE INFORMATION: Exam: MG Screening 3D Mammography Exam date and time: 09/13/2020 1:22 PM Age: 75 years old Clinical indication: Encounter for screening mammogram for malignant neoplasm of breast TECHNIQUE: Imaging protocol: Screening tomosynthesis and 2D mammography including computer-aided detection (CAD) when performed. COMPARISON: 1. MG MM DIG SCREENING MAMM BI W/CAD 09/10/2019 9:00 AM 2. MG MM DIG MAMM DX UNILAT RT CAD 03/17/2019 3:02 PM FINDINGS: MAMMOGRAPHY: Breast composition: The breast tissue is composed of scattered areas of fibroglandular density. Mass: None. Architectural distortion: None. Calcifications: No suspicious calcifications. Asymmetric density: None. Skin thickening: None. Axillary adenopathy: None. IMPRESSION: No mammographic evidence of malignancy. Annual screening is recommended unless otherwise clinically indicated. ASSESSMENT: BI-RADS Category 1: Negative
== END ==
PROVIDERS: PCP Family Medicine; Visit Provider Family Medicine
DX: Z12.31 Encounter for screening mammogram for malignant neoplasm of breast (principal)
CPT/HCPCS: 77063; 77067

== ENCOUNTER → 2020-12-19 09:28 | Outpatient (CLI) | payer MEDICARE, BC, SELFPAY ==
--- NOTE | 2020-12-19 09:34 | XR_ITS ---
PROCEDURE: XR HIP LT 2-3V W/PELVIS CLINICAL INDICATION: s/p LT hip pinning, sx 07/16/19 by Schwindel COMPARISON: CR XR HIP LT 2-3V W/PELVIS from 04/24/2020 MR MR HIP LT WO/W CON from 04/26/2020 FINDINGS: Status post left hip pinning with [address] There is a healing subcapital fracture. There is some mottled decreased density at the femoral head distal to the screws in the subarticular region. This does raise the possibility of developing avascular necrosis. The decreased attenuation is slightly more prominent compared to the previous exam. Faint lucency noted in the is skim in the subcortical region of the acetabular roof slightly medially. This is nonspecific. This is area showed some edematous bone marrow changes on 04/26/2020 MRI. IMPRESSION: Good alignment status post left hip pinning with healing subcapital fracture with some increase in the heterogeneous lucent changes in the subcortical region of the femoral head raising the suspicion of worsening avascular necrosis. Infection would be included in the differential diagnosis. Nonspecific two areas of decreased density along the superior medial aspect of the acetabulum. Infection would be a consideration. CT without and with contrast with metallic subtraction may provide further evaluation. Dictated by: Cem Thomson MD 12/19/2020 18:11 Cem Thomson MD in [place] 12/19/2020 18:11
== END ==
PROVIDERS: PCP Family Medicine; Visit Provider Orthopaedic Surgery
DX: Z09 Encounter for follow-up examination after completed treatment for conditions other than malignant neoplasm (principal); M87.052 Idiopathic aseptic necrosis of left femur
CPT/HCPCS: 73502

== ENCOUNTER → 2021-03-27 09:36 | Outpatient (CLI) | payer MEDICARE, BC, SELFPAY ==
--- NOTE | 2021-03-27 09:45 | XR_ITS ---
FINAL REPORT CLINICAL HISTORY: f/u left hip fracture in 2019 COMPARISON: December 19, 2020 FINDINGS: 2 views of the left hip including an AP pelvis were obtained. There is no acute fracture or dislocation. There are postoperative changes from ORIF involving the left femoral head and neck. Three orthopedic screws remain in place. There are mild degenerative changes. There is degenerative change in lower lumbar spine. IMPRESSION: Postoperative change to the left femoral head and neck, stable. Reviewed, Interpreted and Dictated by Chad Quiroz III, MD Transcribed by Mendel Cosme Authenticated by Chad Quiroz III, MD on 03/27/2021 11:32:37 AM [facility]
== END ==
PROVIDERS: PCP Family Medicine; Visit Provider Orthopaedic Surgery
DX: S72.002A Fracture of unspecified part of neck of left femur, initial encounter for closed fracture (principal)
CPT/HCPCS: 73502

== ENCOUNTER → 2021-05-04 10:19 | Outpatient (CLI) | payer MEDICARE, BC, SELFPAY | PROVIDERS: Visit Provider Nurse Practitioner Family | DX: E83.10 Disorder of iron metabolism, unspecified (principal); G25.81 Restless legs syndrome | CPT/HCPCS: 36415; 82728 ==

== ENCOUNTER → 2021-05-10 09:56 | Outpatient (CLI) | payer MEDICARE, BC, SELFPAY ==
--- NOTE | 2021-05-10 10:18 | XR_ITS ---
FINAL REPORT CLINICAL HISTORY: LT FLANK PAIN FINDINGS: SINGLE VIEW ABDOMEN A single view of the abdomen was obtained. There is a nonobstructive bowel gas pattern. There are no abnormally dilated loops of small bowel. No abnormal calcifications are identified. There are orthopedic screws in the proximal left femur. IMPRESSION: Nonobstructive bowel gas pattern. Reviewed, Interpreted and Dictated by Sam Arenas MD Transcribed by Mendel Cosme Authenticated by Sam Arenas MD on 05/10/2021 12:57:33 PM [facility]
[2021-05-10 10:42] LABS: Basophils # 0.1 K/mm3 (0-0.2); Basophils % 0.9 % (0.1-2.0); Eosinophils # 0.1 K/mm3 (0.0-0.4); Eosinophils % 1.5 % (0.1-12.0); Hematocrit 40.3 % (37.0-47.0); Hemoglobin 13.2 g/dL (12.2-16.2); Lymphocytes # 0.9 K/mm3 (0.7-4.5); Lymphocytes % 14.8 % (10-50); Mean Corpuscular HGB Conc 32.9 g/dL (31.8-35.4); Mean Corpuscular Hemoglobin 29.7 pg (27.0-31.2); Mean Corpuscular Volume 90.2 fl (81-99); Mean Platelet Volume 8.4 fl (7.4-10.4); Monocytes # 0.4 K/mm3 (0.1-1.0); Monocytes % 6.9 % (1.7-9.3); Neutrophils # 4.5 K/mm3 (1.8-7.8); Platelet Count 247 K/mm3 (142-424); Red Blood Count 4.46 M/mm3 (4.20-5.40); Red Cell Distribution Width 14.6 % (11.5-17.5); White Blood Count 5.9 K/mm3 (4.8-10.8)
[2021-05-10 11:11] LABS: Chloride 104 mmol/L (98-107); Potassium 4.6 mmoL/L (3.5-5.1); Sodium 138 mmol/L (136-145)
[2021-05-10 11:14] LABS: Alanine Aminotransferase 19 U/L (12-78); Albumin/Globulin Ratio 1.7 (1.1-1.8); Alkaline Phosphatase 117 U/L (38-126); Anion Gap 11.6 mEq/L (5-15); Aspartate Amino Transferase 27 U/L (14-36); Bilirubin,Total 0.4 mg/dl (0.2-1.3); Blood Urea Nitrogen 14 mg/dl (7-17); Carbon Dioxide 27 mmol/L (22.0-30.0); Estimated Glomerular Filt Rate 61 ml/min (>60); GFR (African American) 74 ML/MIN (>60); Globulin 2.4 g/dL (1.3-3.2); Total Protein,Serum 6.4 g/dl (6.3-8.2)
[2021-05-10 11:15] LABS: Calcium 8.8 mg/dl (8.4-10.2); Glucose 88 mg/dl (74-100)
== END ==
PROVIDERS: PCP Nurse Practitioner Family; Visit Provider Nurse Practitioner Family
DX: R10.9 Unspecified abdominal pain (principal); R79.0 Abnormal level of blood mineral
CPT/HCPCS: 36415; 74018; 80053; 85025

== ENCOUNTER → 2021-05-23 09:11 | Outpatient (CLI) | payer MEDICARE, BC, SELFPAY | PROVIDERS: Visit Provider Nurse Practitioner Family | DX: G47.33 Obstructive sleep apnea (adult) (pediatric) (principal) | CPT/HCPCS: 95810; C9803; U0003; U0005 ==

== ENCOUNTER → 2021-05-23 21:03 | Outpatient (CLI) | payer MEDICARE, BC, SELFPAY | PROVIDERS: PCP Family Medicine; Visit Provider Nurse Practitioner Family | DX: G47.33 Obstructive sleep apnea (adult) (pediatric) (principal); G47.52 REM sleep behavior disorder; G25.81 Restless legs syndrome; I48.91 Unspecified atrial fibrillation; I10 Essential (primary) hypertension; Z86.73 Personal history of transient ischemic attack (TIA), and cerebral infarction without residual deficits; G47.61 Periodic limb movement disorder | CPT/HCPCS: 95810 ==

== ENCOUNTER → 2021-06-26 07:14 | Outpatient (CLI) | payer MEDICARE, BC, SELFPAY ==
--- NOTE | 2021-06-26 07:18 | XR_ITS ---
FINAL REPORT CLINICAL HISTORY: lt hip fracture..pain COMPARISON: 03/27/2021 FINDINGS: LEFT HIP Three views were obtained. Again identified are postoperative changes of the femoral head and neck with a chronic femoral neck fracture. IMPRESSION: Postoperative and chronic findings as above. Reviewed, Interpreted and Dictated by Chad Quiroz III, MD Transcribed by Gladys Schaefer Authenticated by Chad Quiroz III, MD on 06/26/2021 08:43:[address] [facility]
== END ==
PROVIDERS: PCP Family Medicine; Visit Provider Orthopaedic Surgery
DX: S72.002A Fracture of unspecified part of neck of left femur, initial encounter for closed fracture (principal)
CPT/HCPCS: 73502

== ENCOUNTER → 2021-09-18 13:19 | Outpatient (CLI) | payer MEDICARE, BC, SELFPAY ==
--- NOTE | 2021-09-18 13:32 | MM_ITS ---
PROCEDURE INFORMATION: Exam: MG Bilateral Screening 3D Mammography Exam date and time: 09/18/2021 2:14 PM Age: 76 years old Clinical indication: Screening examination; Additional info: Screening. Strong family history of breast carcinoma TECHNIQUE: Imaging protocol: Bilateral Screening tomosynthesis and 2D mammography including computer-aided detection (CAD) when performed. COMPARISON: 1. MG MM DIG SCREENING MAMM BI W/CAD 09/13/2020 1:31 PM 2. MG MM DIG SCREENING MAMM BI W/CAD 09/10/2019 9:00 AM 3. MG MM DIG MAMM DX UNILAT RT CAD 03/17/2019 3:02 PM FINDINGS: MAMMOGRAPHY: Breast composition: There are scattered areas of fibroglandular density. Mass: No suspicious masses. Architectural distortion: No suspicious distortion. Calcifications: No suspicious calcifications. Asymmetric density: None. Skin thickening: None. Axillary adenopathy: None. IMPRESSION: 1. No mammographic evidence of malignancy. Annual screening is recommended unless otherwise clinically indicated. 2. Given the reported risk factors for this patient, a breast cancer risk assessment may prove useful for further evaluation. ASSESSMENT: BI-RADS Category 1: Negative
== END ==
PROVIDERS: PCP Family Medicine; Visit Provider Family Medicine
DX: Z12.31 Encounter for screening mammogram for malignant neoplasm of breast (principal); Z80.3 Family history of malignant neoplasm of breast
CPT/HCPCS: 77063; 77067

== ENCOUNTER → 2021-10-02 09:25 | Outpatient (CLI) | payer MEDICARE, BC, SELFPAY ==
--- NOTE | 2021-10-02 09:35 | XR_ITS ---
FINAL REPORT CLINICAL HISTORY: hip fracture COMPARISON: June 26, 2021 FINDINGS: LEFT HIP: Two views of the left hip were obtained. Stable impacted fracture of the femoral head and neck with postoperative changes. IMPRESSION: Stable impacted fracture of the femoral head and neck. Reviewed, Interpreted and Dictated by Chad Quiroz III, MD Transcribed by Umm Balderrama Authenticated and [facility]
== END ==
PROVIDERS: PCP Family Medicine; Visit Provider Orthopaedic Surgery
DX: S72.002A Fracture of unspecified part of neck of left femur, initial encounter for closed fracture (principal)
CPT/HCPCS: 73502

== ENCOUNTER → 2021-10-02 20:17 | Outpatient (CLI) | payer MEDICARE, BC, SELFPAY | PROVIDERS: PCP Family Medicine; Visit Provider Nurse Practitioner Family | DX: G47.33 Obstructive sleep apnea (adult) (pediatric) (principal); G47.36 Sleep related hypoventilation in conditions classified elsewhere; G47.61 Periodic limb movement disorder; M25.552 Pain in left hip | CPT/HCPCS: 73502; 95811 ==

== ENCOUNTER → 2021-10-09 08:20 | Outpatient (CLI) | payer MEDICARE, BC, SELFPAY ==
--- NOTE | 2021-10-09 08:23 | XR_ITS ---
FINAL REPORT CLINICAL HISTORY: knee pain FINDINGS: Left knee Four views were obtained. There is no acute fracture or dislocation. There are hypertrophic changes of the medial and lateral joint margins. There are osteophytes along the undersurface of the patella. There is significant narrowing of the lateral articular facet of the patellofemoral joint. No soft tissue abnormality is identified. IMPRESSION: Moderate osteoarthritis. Reviewed, Interpreted and Dictated by Sam Arenas MD Transcribed by Gladys Schaefer Authenticated and [facility]
--- NOTE | 2021-10-09 08:23 | XR_ITS ---
FINAL REPORT CLINICAL HISTORY: right knee pain FINDINGS: Right knee Four views were obtained. There is no acute fracture or dislocation. There is moderate narrowing of the lateral compartment. There is also moderate narrowing of the lateral articular facet of the patellofemoral joint. No joint effusion is identified. No soft tissue abnormality is identified. IMPRESSION: Moderate osteoarthritis. Reviewed, Interpreted and Dictated by Sam Arenas MD Transcribed by Gladys Schaefer Authenticated and . [facility]
== END ==
PROVIDERS: PCP Family Medicine; Visit Provider Orthopaedic Surgery
DX: M25.561 Pain in right knee (principal); M25.562 Pain in left knee
CPT/HCPCS: 73564

== ENCOUNTER → 2022-03-26 14:39 | Outpatient (CLI) | payer MEDICARE, BC, SELFPAY ==
--- NOTE | 2022-03-26 14:44 | XR_ITS ---
FINAL REPORT CLINICAL HISTORY: hip pain..surgery 2019 broke hip COMPARISON: 10/02/2021 FINDINGS: LEFT HIP Two views of the left hip demonstrate no acute fracture or dislocation. Orthopedic screws are securing the left femoral neck. The joint spaces are preserved. The visualized bony structures are well aligned. No soft tissue abnormality is seen. IMPRESSION: Postoperative changes with no acute bony abnormality. Reviewed, Interpreted and Dictated by Sam Arenas MD Transcribed by Seema Torres Authenticated and [facility]
== END ==
PROVIDERS: PCP Family Medicine; Visit Provider Orthopaedic Surgery
DX: M25.552 Pain in left hip (principal)
CPT/HCPCS: 73502

== ENCOUNTER → 2022-05-06 23:41 | Outpatient (CLI) | payer MEDICARE, BC, SELFPAY | PROVIDERS: PCP Family Medicine; Visit Provider Nurse Practitioner Family | DX: M79.672 Pain in left foot (principal) | CPT/HCPCS: 87102; 87206; 87220 ==

== ENCOUNTER 2022-07-01 09:44 | Emergency (ER) | payer MEDICARE, BC, SELFPAY ==
[2022-07-01 09:55] VITALS: BP 157/100; PULSE 90; RESP 20; TEMP 37; O2SAT 97; BMI 27.3
--- NOTE | 2022-07-01 09:55 | EXP.UTC ---
Discharge Plan Disposition Patient Disposition: Home, Self-Care Condition: Good Prescriptions Prescriptions: New azithromycin [Zithromax] 250 mg tablet 250 mg PO UD DOSE PK Qty: 6 0RF Rx Instructions: Take two (2) tablets today, then one (1) tablet days #2 thru #5 methylprednisolone 4 mg Tablets,Dose Pack 4 mg PO DIRECTED Qty: 21 0RF benzonatate [benzonatate] 100 mg capsule 100 mg PO TIDP PRN (Reason: Cough) Qty: 30 0RF No Action zinc 50 mg tablet 50 mg PO DAILY cholecalciferol (vitamin D3) 50 mcg (2,000 unit) capsule 50 mcg PO DAILY mecobalamin (vitamin B12) 1,000 mcg tablet,chewable 1,000 mcg PO DAILY hyoscyamine sulfate [Levsin/SL] 0.125 mg tablet, sublingual 0.125 mg SUBLINGUAL QID PRN Antacid Calcium 215 mg calcium (500 mg) tablet,chewable 215 mg PO DAILY Pro Fe 180 mg iron capsule 180 mg PO DAILY Label Comments: TAKE ONE CAPSULE BY MOUTH EVERY DAY Eliquis 5 mg tablet 5 mg PO BID multivitamin 1 EACH capsule 1 each PO DAILY duloxetine 30 mg capsule,delayed release(DR/EC) 30 mg PO BID Rx Instructions: one tab in the morning and two tabs at hs Referrals Follow up/Referrals: Deion Smith MD [Primary Care Provider] - See instructions Activity Restrictions/Add. Instructions Additional Instructions/Restrictions: Drink plenty of fluids. Take tylenol or ibuprofen for pain or fever. Take the medications as directed. Follow up with your regular doctor. GO TO THE ER FOR ANY WORSENING SYMPTOMS Clinical Impressions Clinical Impression: Strep throat Instructions Patient Instructions: Strep Throat, DI for Strep Throat Discharge ED Provider: Gabino Steve [facility] [place] H[place] General Stated complaint: sore throat,fever 100.1,cough,headahce Time Seen by Provider: 07/01/22 09:57 History of Present Illness Provider Complaint: She c.o. sore throat, fever up to 101, and malaise since yesterday. She has been exposed to strep throat. Related Data Home Medications Medication Instructions Recorded Confirmed multivitamin 1 each PO DAILY Supplement 03/25/17 05/06/22 apixaban 5 mg tablet (Eliquis) 5 mg PO BID Blood thinner 04/16/18 05/06/22 calcium carbonate 215 mg calcium 215 mg PO DAILY 05/02/21 05/06/22 (500 mg) chewable tablet (Antacid Calcium) cholecalciferol (vitamin D3) 50 50 mcg PO DAILY 05/02/21 05/06/22 mcg (2,000 unit) capsule hyoscyamine sulfate 0.125 mg 0.125 mg sublingual QID PRN 05/02/21 05/06/22 sublingual tablet (Levsin/SL) mecobalamin (vitamin B12) 1,000 1,000 mcg PO DAILY 05/02/21 05/06/22 mcg chewable tablet zinc 50 mg tablet 50 mg PO DAILY 05/02/21 05/06/22 duloxetine 30 mg capsule,delayed 30 mg PO BID depression/fibro 10/16/21 05/06/22 release polysaccharide iron complex 180 mg 180 mg PO DAILY 02/04/22 05/06/22 iron capsule (Pro Fe) Previous Rx's Medication Instructions Recorded azithromycin 250 mg tablet 250 mg PO UD DOSE PK #6 tabs 07/01/22 (Zithromax) benzonatate 100 mg capsule 100 mg PO TIDP PRN Cough #30 caps 07/01/22 methylprednisolone 4 mg tablets in 4 mg PO DIRECTED #21 tabs 07/01/22 a dose pack Allergies Allergy/AdvReac Type Severity Reaction Status Date / Time Fish Containing Products Allergy Severe Nausea Verified 05/06/22 10:37 Iodinated Contrast Media Allergy Severe Rash Verified 05/06/22 10:37 ibuprofen [IBUPROFEN] Allergy Intermediate I-RASH Verified 05/06/22 10:37 latex [LATEX] Allergy Intermediate I-RASH Verified 05/06/22 10:37 Penicillins [PENICILLINS] Allergy Intermediate I-RASH Verified 05/06/22 10:37 poison eladio extract Allergy Unknown S-BLISTERING Verified 05/06/22 10:37 [POISON ELADIO EXTRACT] WELTS cefoxitin Allergy Unknown Verified 05/06/22 10:37 allergy reaction NSAIDS (Non-Steroidal Allergy Verified 07/01/22 10:07 Anti-Inflamma [facility] Disclaimer: The information contained in this section ki
[2022-07-01 10:09] LABS: UTC Strep Screen (Rapid) Positive (Negative)
[2022-07-01 10:54] VITALS: BP 157/100; PULSE 90; RESP 20; TEMP 37; O2SAT 97
== END 2022-07-01 10:55 | disposition home or self-care (01) ==
PROVIDERS: Emergency Provider Nurse Practitioner Family; PCP Family Medicine
DX: J02.0 Streptococcal pharyngitis (principal); R50.9 Fever, unspecified; R51.9 Headache, unspecified; R53.81 Other malaise
CPT/HCPCS: 87880; 99204; 99212; G0463

== ENCOUNTER → 2022-09-20 07:59 | Outpatient (CLI) | payer MEDICARE, BC, SELFPAY ==
--- NOTE | 2022-09-20 08:14 | MM_ITS ---
PROCEDURE INFORMATION: Exam: MG Bilateral Screening 3D Mammography Exam date and time: 09/20/2022 8:04 AM Age: 77 years old Clinical indication: Screening examination; Family history of breast cancer in mother and in grandmother and in aunt; Mother's age: Unknown TECHNIQUE: Imaging protocol: Bilateral Screening tomosynthesis and 2D mammography including computer-aided detection (CAD) when performed. COMPARISON: 1. MG MM DIG SCREENING MAMM BI W/CAD 09/18/2021 2:14 PM 2. MG MM DIG SCREENING MAMM BI W/CAD 09/13/2020 1:31 PM FINDINGS: MAMMOGRAPHY: Breast composition: There are scattered areas of fibroglandular density. Mass: None. Architectural distortion: None. Calcifications: No suspicious calcifications. Asymmetric density: None. Skin thickening: None. Axillary adenopathy: None. IMPRESSION: No mammographic evidence of malignancy. Annual screening is recommended unless otherwise clinically indicated. ASSESSMENT: BI-RADS Category 1: Negative
== END ==
PROVIDERS: PCP Family Medicine; Visit Provider Family Medicine
DX: Z12.31 Encounter for screening mammogram for malignant neoplasm of breast (principal)
CPT/HCPCS: 77063; 77067

== ENCOUNTER → 2022-11-04 12:08 | Outpatient (CLI) | payer MEDICARE, BC, SELFPAY ==
--- NOTE | 2022-11-04 12:14 | XR_ITS ---
FINAL REPORT CLINICAL HISTORY: ankle pain COMPARISON: None FINDINGS: RIGHT ANKLE 3 views of the right ankle were obtained. There is no acute fracture or dislocation. The mortise is intact. Visualized joint spaces are normally aligned. There is moderate soft tissue swelling surrounding the ankle. There is a sclerotic focus present in the medial malleolus that most likely represents an enostosis. IMPRESSION: No acute bony abnormality. Reviewed, Interpreted and Dictated by Sam Arenas MD Transcribed by Danielle Crespo Authenticated and . [facility]
--- NOTE | 2022-11-04 12:14 | XR_ITS ---
FINAL REPORT CLINICAL HISTORY: ankle pain FINDINGS: LEFT ANKLE Three views demonstrate no acute fracture or dislocation. The visualized joint spaces are normally aligned. There is mild soft tissue swelling. IMPRESSION: Mild soft tissue swelling without acute bony abnormality. Reviewed, Interpreted and Dictated by Sam Arenas MD Transcribed by Krystle Sainz Authenticated and . [facility]
--- NOTE | 2022-11-04 12:14 | XR_ITS ---
FINAL REPORT CLINICAL HISTORY: foot pain FINDINGS: RIGHT FOOT 3 views of the right foot were obtained. There is no acute fracture or dislocation. There are mild hypertrophic changes of the first MTP joint. Soft tissues are unremarkable. IMPRESSION: No acute bony abnormality. Reviewed, Interpreted and Dictated by Sam Arenas MD Transcribed by Krystle Sainz Authenticated and [facility]
--- NOTE | 2022-11-04 12:14 | XR_ITS ---
FINAL REPORT CLINICAL HISTORY: foot pain FINDINGS: LEFT FOOT Three views of the left foot demonstrate no acute fracture or dislocation. There is mild to moderate narrowing of the first MTP joint with mild associated hypertrophic changes consistent with osteoarthritis. The visualized joint spaces are normally aligned. The soft tissues are unremarkable. IMPRESSION: No acute bony abnormality. Reviewed, Interpreted and Dictated by Sam Arenas MD Transcribed by Krystle Sainz Authenticated and [facility]
== END ==
PROVIDERS: PCP Family Medicine; Visit Provider Podiatrist
DX: M25.571 Pain in right ankle and joints of right foot (principal); M25.572 Pain in left ankle and joints of left foot; M79.671 Pain in right foot; M79.672 Pain in left foot
CPT/HCPCS: 73610; 73630

== ENCOUNTER 2022-11-05 18:43 | Emergency (ER) | payer MEDICARE, BC, SELFPAY ==
--- NOTE | 2022-11-05 19:20 | EXP.UTC ---
Discharge Plan Disposition Patient Disposition: Home, Self-Care Condition: Good Prescriptions Prescriptions: New prednisone 10 mg tablet 10 mg PO BID 4 Days Qty: 8 0RF azithromycin [Zithromax] 250 mg tablet 250 mg PO UD DOSE PK Qty: 6 0RF Rx Instructions: Take two (2) tablets today, then one (1) tablet days #2 thru #5 No Action zinc 50 mg tablet 50 mg PO DAILY cholecalciferol (vitamin D3) 50 mcg (2,000 unit) capsule 50 mcg PO DAILY mecobalamin (vitamin B12) 1,000 mcg tablet,chewable 1,000 mcg PO DAILY hyoscyamine sulfate [Levsin/SL] 0.125 mg tablet, sublingual 0.125 mg SUBLINGUAL QID PRN Antacid Calcium 215 mg calcium (500 mg) tablet,chewable 215 mg PO DAILY Pro Fe 180 mg iron capsule 180 mg PO DAILY Patient Comments: TAKE ONE CAPSULE BY MOUTH EVERY DAY Eliquis 5 mg tablet 5 mg PO BID multivitamin 1 EACH capsule 1 each PO DAILY duloxetine 30 mg capsule,delayed release(DR/EC) 30 mg PO BID Rx Instructions: one tab in the morning and two tabs at hs benzonatate [benzonatate] 100 mg capsule 100 mg PO TIDP PRN (Reason: Cough) Qty: 30 0RF Referrals Follow up/Referrals: Deion Smith MD [Primary Care Provider] - See instructions Activity Restrictions/Add. Instructions Additional Instructions/Restrictions: Drink plenty of fluids. Take tylenol or ibuprofen for pain or fever. Take the medications as directed. Follow up with your regular doctor. GO TO THE ER FOR ANY WORSENING SYMPTOMS Apply warm wet compresses to the affected area on your face three or four times per day for 15 minutes as tolerated. Clinical Impressions Clinical Impression: Facial swelling Instructions Patient Instructions: Prednisone, Azithromycin Discharge ED Provider: Gabino Steve [facility] [place] HPI General Stated complaint: sore in mouth, swelling Time Seen by Provider: 11/05/22 19:20 History of Present Illness Provider Complaint: She states that for the past 1 day she has had puffiness below her left eye and tenderness of her cheek in that area. The left side of her face was swollen earlier, but that has resolved. She also has some mild sinus congestion. She denies any fever or chills. Related Data Home Medications Medication Instructions Recorded Confirmed multivitamin 1 each PO DAILY Supplement 03/25/17 08/05/22 apixaban 5 mg tablet (Eliquis) 5 mg PO BID Blood thinner 04/16/18 08/05/22 calcium carbonate 215 mg calcium 215 mg PO DAILY 05/02/21 08/05/22 (500 mg) chewable tablet (Antacid Calcium) cholecalciferol (vitamin D3) 50 50 mcg PO DAILY 05/02/21 08/05/22 mcg (2,000 unit) capsule hyoscyamine sulfate 0.125 mg 0.125 mg sublingual QID PRN 05/02/21 08/05/22 sublingual tablet (Levsin/SL) mecobalamin (vitamin B12) 1,000 1,000 mcg PO DAILY 05/02/21 08/05/22 mcg chewable tablet zinc 50 mg tablet 50 mg PO DAILY 05/02/21 08/05/22 duloxetine 30 mg capsule,delayed 30 mg PO BID depression/fibro 10/16/21 08/05/22 release polysaccharide iron complex 180 mg 180 mg PO DAILY 02/04/22 08/05/22 iron capsule (Pro Fe) Previous Rx's Medication Instructions Recorded benzonatate 100 mg capsule 100 mg PO TIDP PRN Cough #30 caps 07/01/22 azithromycin 250 mg tablet 250 mg PO UD DOSE PK #6 tabs 11/05/22 (Zithromax) prednisone 10 mg tablet 10 mg PO BID 4 days #8 tabs 11/05/22 Allergies Allergy/AdvReac Type Severity Reaction Status Date / Time Fish Containing Products Allergy Severe Nausea Verified 08/05/22 11:17 Iodinated Contrast Media Allergy Severe Rash Verified 08/05/22 11:17 ibuprofen [IBUPROFEN] Allergy Intermediate I-RASH Verified 08/05/22 11:17 latex [LATEX] Allergy Intermediate I-RASH Verified 08/05/22 11:17 Penicillins [PENICILLINS] Allergy Intermediate I-RASH Verified 08/05/22 11:17 poison eladio extract Allergy Unknown S-BLISTERING Verified 08/05/22 11:17 [POISON ELADIO EXTRACT] WELTS cefoxitin Allergy U
[2022-11-05 19:30] VITALS: BP 189/100; PULSE 78; RESP 18; TEMP 36.5; O2SAT 97; BMI 27.7
[2022-11-05 20:12] VITALS: BP 189/100; PULSE 78; RESP 18; TEMP 36.5; O2SAT 97
== END 2022-11-05 20:13 | disposition home or self-care (01) ==
PROVIDERS: Emergency Provider Nurse Practitioner Family; PCP Family Medicine
DX: R22.0 Localized swelling, mass and lump, head (principal)
CPT/HCPCS: 99212; 99214; G0463

== ENCOUNTER → 2023-01-14 20:20 | Outpatient (CLI) | payer MEDICARE, BC, SELFPAY | PROVIDERS: PCP Family Medicine; Visit Provider Nurse Practitioner Family | DX: G47.33 Obstructive sleep apnea (adult) (pediatric) (principal); G25.81 Restless legs syndrome; G47.34 Idiopathic sleep related nonobstructive alveolar hypoventilation; I10 Essential (primary) hypertension; I48.91 Unspecified atrial fibrillation | CPT/HCPCS: 95811 ==

== ENCOUNTER → 2023-01-30 10:05 | Outpatient (CLI) | payer MEDICARE, BC, SELFPAY ==
[2023-01-30 10:20] LABS: MANUAL DIFFERENTIAL MANUAL DIFFERENTIAL (MANUAL DIFF)
[2023-01-30 10:51] LABS: Basophils # 0.1 K/mm3 (0-0.2); Basophils % 0.7 % (0.1-2.0); Eosinophils # 0.2 K/mm3 (0.0-0.4); Eosinophils % 2.3 % (0.1-12.0); Hematocrit 42.4 % (37.0-47.0); Hemoglobin 14.2 g/dL (12.2-16.2); Lymphocytes # 2.3 K/mm3 (0.7-4.5); Lymphocytes % 29.5 % (10-50); Mean Corpuscular HGB Conc 33.5 g/dL (31.8-35.4); Mean Corpuscular Volume 89.4 fl (81-99); Mean Platelet Volume 8.2 fl (7.4-10.4); Monocytes # 0.4 K/mm3 (0.1-1.0); Monocytes % 5.5 % (1.7-9.3); Neutrophils # 4.8 K/mm3 (1.8-7.8); Neutrophils % 61.9 % (37.0-80.0); Platelet Count 312 K/mm3 (142-424); Red Blood Count 4.74 M/mm3 (4.20-5.40); Red Cell Distribution Width 13.9 % (11.5-17.5); White Blood Count 7.7 K/mm3 (4.8-10.8)
[2023-01-30 11:34] LABS: Eosinophils % 2 % (0-3); Lymphocytes % 33 % (10-50); Monocytes % 2 % (2-9); Neutrophils % 63 % (42-76); Platelet Estimate Normal; RBC Morphology Normal; Total Cells Counted 100
[2023-01-30 11:36] LABS: Iron 96 ug/dL (37-170)
[2023-01-30 11:46] LABS: Total Iron Binding Capacity 379 ug/dL (265-497)
[2023-01-30 12:12] LABS: Ferritin 8.93 ng/ml (11.1-264)
== END ==
PROVIDERS: PCP Family Medicine; Visit Provider Nurse Practitioner Family
DX: E61.1 Iron deficiency (principal); G25.81 Restless legs syndrome
CPT/HCPCS: 36415; 82728; 83540; 83550; 85007; 85014; 85018; 85048; 85049

== ENCOUNTER 2023-04-08 12:49 | Outpatient (CLI) | payer MEDICARE, BC, SELFPAY ==
--- NOTE | 2023-04-08 12:52 | XR_ITS ---
FINAL REPORT CLINICAL HISTORY: Left hip pain COMPARISON: 03/26/2022 FINDINGS: LEFT HIP: 3 views of the left hip with an AP view of the pelvis demonstrate no acute fracture or dislocation. Orthopedic screws are present in the proximal left femur. There is abnormal sclerosis and irregularity of the superior left femoral head which may be due to avascular necrosis. The joint spaces appear normal. The visualized bony structures are well aligned. No soft tissue abnormality is seen. Right hip is unremarkable. IMPRESSION: Abnormal sclerosis and irregularity left femoral head may be due to avascular necrosis. Postoperative changes without acute bony abnormality. Reviewed, Interpreted and Dictated by Sam Arenas MD Transcribed by Dalia Sterling Authenticated and [facility]
== END 2023-04-08 23:59 ==
PROVIDERS: PCP Family Medicine; Visit Provider Orthopaedic Surgery
DX: S72.002A Fracture of unspecified part of neck of left femur, initial encounter for closed fracture (principal); M25.552 Pain in left hip
CPT/HCPCS: 73502

== ENCOUNTER 2023-04-28 13:27 | Outpatient (CLI) | payer MEDICARE, BC, SELFPAY ==
--- NOTE | 2023-04-28 13:28 | MR_ITS ---
FINAL REPORT CLINICAL HISTORY: RIGHT LATERAL KNEE PAIN AND SWELLING FINDINGS: Multiplanar MR imaging of the right knee was performed without contrast. There is motion artifact on many sequences. There is a probable tear at the posterior horn of the medial meniscus. There is a tear of the anterior horn and body of the lateral meniscus. The anterior and posterior cruciate ligaments are intact. The medial collateral ligament and lateral ligamentous complex are intact. There are foci of patellar tendinitis. Moderate degenerative changes are seen with moderate to severe lateral and patellofemoral chondromalacia. There is no evidence of fracture. A moderate-sized joint effusion is seen. The musculature is intact. There is a moderate popliteal cyst. IMPRESSION: Probable tear of the posterior horn of the medial meniscus with tear of the anterior horn and body of the lateral meniscus. Patellar tendinitis. 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 Reviewed, Interpreted and Dictated by Chad Quiroz III, MD Transcribed by Krystle Sainz Authenticated and [facility]
== END 2023-04-28 23:59 ==
LOC: RAD 13:28
PROVIDERS: PCP Family Medicine; Visit Provider Orthopaedic Surgery
DX: M25.561 Pain in right knee (principal)
CPT/HCPCS: 73721

== ENCOUNTER 2023-05-13 09:59 | Outpatient (CLI) | payer MEDICARE, BC, SELFPAY ==
--- NOTE | 2023-05-13 10:23 | ECG_ITS ---
APPROVED REPORT Exam: Resting ECG HR:85 bpm ECG Measurements Heart Rate 85 AXES VT 136 P 57 QRSd 79 QRS 12 QT 357 T 35 QTc 400 Conclusion SINUS RHYTHM LOW QRS VOLTAGE IN PRECORDIAL LEADS [QRS DEFLECTION < 1.0 mV IN CHEST LEADS] MINIMAL VOLTAGE CRITERIA FOR LVH, CONSIDER NORMAL VARIANT [MEETS CRITERIA IN ONE OF: R(aVL), S(V1), R(V5), R(V5/V6)+S(V1)] Old anterior changes Isolated Q in III probable normal variant BORDERLINE ECG UNCONFIRMED REPORT Electronically signed by : Deion Stone MD 05/13/2023 21:03:59
[2023-05-13 10:27] LABS: Basophils # 0.1 K/mm3 (0-0.2); Eosinophils # 0.3 K/mm3 (0.0-0.4); Eosinophils % 3.8 % (0.1-12.0); Hematocrit 44.2 % (37.0-47.0); Hemoglobin 14.8 g/dL (12.2-16.2); Lymphocytes # 2.1 K/mm3 (0.7-4.5); Lymphocytes % 30.6 % (10-50); Mean Corpuscular HGB Conc 33.4 g/dL (31.8-35.4); Mean Corpuscular Hemoglobin 30.6 pg (27.0-31.2); Mean Corpuscular Volume 91.5 fl (81-99); Mean Platelet Volume 8.3 fl (7.4-10.4); Monocytes # 0.5 K/mm3 (0.1-1.0); Monocytes % 7.1 % (1.7-9.3); Neutrophils % 57.5 % (37.0-80.0); Platelet Count 344 K/mm3 (142-424); Red Blood Count 4.84 M/mm3 (4.20-5.40); Red Cell Distribution Width 13.8 % (11.5-17.5)
[2023-05-13 12:00] LABS: Chloride 105 mmol/L (98-107); Potassium 4.5 mmoL/L (3.5-5.1); Sodium 140 mmol/L (136-145)
[2023-05-13 12:03] LABS: Alanine Aminotransferase 24 U/L (12-78); Albumin Level 4.1 g/dl (3.5-5.0); Albumin/Globulin Ratio 1.6 (1.1-1.8); Alkaline Phosphatase 121 U/L (38-126); Anion Gap 10.5 mEq/L (5-15); Aspartate Amino Transferase 30 U/L (14-36); Bilirubin,Total 0.3 mg/dl (0.2-1.3); Blood Urea Nitrogen 16 mg/dl (7-17); Calcium 10.4 mg/dl (8.4-10.2); Carbon Dioxide 29 mmol/L (22.0-30.0); Estimated Glomerular Filt Rate 81 ml/min (>60); GFR (African American) 98 ML/MIN (>60); Globulin 2.5 g/dL (1.3-3.2); Glucose 102 mg/dl (74-100); Total Protein,Serum 6.6 g/dl (6.3-8.2)
== END 2023-05-13 23:59 ==
LOC: LAB 10:00
PROVIDERS: PCP Family Medicine; Visit Provider Orthopaedic Surgery
DX: Z01.818 Encounter for other preprocedural examination (principal); M17.11 Unilateral primary osteoarthritis, right knee; S83.231A Complex tear of medial meniscus, current injury, right knee, initial encounter; S83.271A Complex tear of lateral meniscus, current injury, right knee, initial encounter
CPT/HCPCS: 36415; 80053; 85025; 93005

== ENCOUNTER → 2023-05-28 20:27 | Outpatient (CLI) | payer MEDICARE, BC, SELFPAY | PROVIDERS: PCP Family Medicine; Visit Provider Nurse Practitioner Family | DX: G47.33 Obstructive sleep apnea (adult) (pediatric) (principal); G25.81 Restless legs syndrome; I48.91 Unspecified atrial fibrillation; I10 Essential (primary) hypertension | CPT/HCPCS: 95811 ==

== ENCOUNTER 2023-06-19 08:57 | Outpatient (CLI) | payer MEDICARE, BC, SELFPAY ==
--- NOTE | 2023-06-19 08:58 | CT_ITS ---
FINAL REPORT TECHNIQUE: Thin section axial CT images with coronal and sagittal reformats were performed. This study was performed with techniques to keep radiation doses as low as reasonably achievable (ALARA). Individualized dose reduction techniques using automated exposure control or adjustment of mA and/or kV according to the patient''s size were employed. CLINICAL HISTORY: MY KNEE PROTOCOL PRE OP COMPARISON: None FINDINGS: There are no fractures. There is severe tricompartmental degenerative change of the right knee. There are no calcified joint bodies. There is a small joint effusion. There are no soft tissue abnormalities. IMPRESSION: Severe degenerative changes and small joint effusion. Reviewed, Interpreted and Dictated by Mars Monique MD Transcribed by Dalia Sterling Authenticated and [facility]
== END 2023-06-19 23:59 | disposition home or self-care (01) ==
LOC: RAD 08:58
PROVIDERS: PCP Family Medicine; Visit Provider Orthopaedic Surgery
DX: M17.11 Unilateral primary osteoarthritis, right knee (principal)
CPT/HCPCS: 73700

== ENCOUNTER 2023-07-30 09:00 | Outpatient (RCR) | payer MEDICARE, BC, SELFPAY ==
--- NOTE | 2023-06-09 10:15 | HMH.PTOPEV ---
PT Outpatient Evaluation Rehab PT Outpatient Evaluation Start: 06/09/23 09:26 Freq: Status: Active Protocol: Document 06/09/23 09:26 KAYA (Rec: 06/09/23 10:15 KAYA [id number]) E-signed By Alonzo Dasilva, PT Outpatient Therapy Subjective History Subjective History Pt reports h/o chronic left and right knee pain secondary to OA. Pt reports right knee ' has become much worse than the left' over the last ~6 months . Pt reports lateral > medial aspect right knee pain, with intermittent episodes of ' catching'. Pt presents for pre -hab of right knee for right TKA scheduled for 08/04/23. PMH :left hip avascular necrosis New diagnosis of cancer in past 12 No months? Chief Complaint Pain,Stiff,Catches/Locks, Weakness Symptom Type Ache,Throb,Dull Symptoms Relieved By Rest/Positioning,Heat Symptoms Aggravated By Standing,Physical Activity, Walking Prior Functional Limitations Housework,Standing,Walking Current Functional Limitations Housework,Standing,Squatting, Walking,Stairs Symptom Description Constant but Variable Level of pain today (0-10) 4 Pain scale - at its best (0-10) 4 Pain scale - at its worst (0-10) 6 Hip/Knee Eval Gait Observation General Gait Pattern Observation Antalgic Gait Assistive Device Assistive Devices None / NA Palpation Tenderness right Knee Palpation Finding Tenderness Knee Palpation Overall Comment 3/4 lateral jt line, 2/4 medial jt line MMT left Hip Flexion Strength Grade 4- Good- Hip Abduction Strength Grade 4- Good- Hip Adduction Strength Grade 4 Good Hip Extension Strength Grade 4- Good- Knee Extension Strength Grade 4 Good Knee Flexion Strength Grade 4- Good- right Hip Flexion Strength Grade 4- Good- Hip Abduction Strength Grade 3+ Fair+ Hip Adduction Strength Grade 4- Good- Hip Extension Strength Grade 4- Good- Knee Extension Strength Grade 4- Good- Knee Flexion Strength Grade 4- Good- ROM left Knee Flexion Active Range of Motion ( 0-130 degrees) right Knee Flexion Active Range of Motion ( 0-110 degrees) Knee ROM Limitations Pain Lower Extremity Functional Index Activities Today, do you or would you have any difficulty at all with: a.Any of your usual work, housework or A little bit of difficulty school activities b. Your usual hobbies, recreational or No difficulty sporting activities c. Getting into or out of the bath A little bit of difficulty d. Walking between rooms No difficulty e. Putting on your shoes or socks No difficulty f. Squatting Moderate difficulty g. Lifting an object, like a bag of No difficulty groceries from the floor h. Performing light activities around A little bit of difficulty your home i. Performing heavy activities around Moderate difficulty your home j. Getting into or out of a car Moderate difficulty k. Walking 2 blocks A little bit of difficulty l. Walking a mile A little bit of difficulty m. Going up or down 10 stairs (about 1 Quite a bit of difficulty flight of stairs) n. Standing for 1 hour Moderate difficulty o. Sitting for 1 hour No difficulty p. Running on even ground Quite a bit of difficulty q. Running on uneven ground Quite a bit of difficulty r. Making sharp turns while running fast Quite a bit of difficulty s. Hopping Quite a bit of difficulty t. Rolling over in bed A little bit of difficulty LEFI Score Lower Extremity Functional Index Score 51 Outpatient Therapy Assessment Impairments Problems/Impairmments Palpation Tenderness,Impaired Range of Motion,Impaired Strength,Impaired Gait Pattern ,Impaired Walking,Impaired Standing,Impaired Household Care,Impaired Stair Climbing, Impaired Squatting,Subjective C/O Pain,Impaired Self Care/ Self Management Prognosis Rehab Potential Good Clinical Impression Consistent with Diagnosis Yes Short Term Goals Number of Weeks 4 Decreased Palpation Tenderness Yes: 1-2/4 right knee Increase Range of Motion Yes: 0-120 right knee AROM Increase Strength Yes: 4/5 B/L LE Increase Ability to Walk Yes: 30MIN Increase Ability to Stand Yes: 30MIN Improve Ability For Household Care Yes: 30MIN Improve LEFI Score Yes: 55-60 Decrease Subjective C/O Pain Yes: 3/10 W/ABOVE ACTIVITIES Patient to be Ind w/ HEP Yes Machine Repairer Maintenance Goals Number of Weeks 6-8 Decreased Palpation Tenderness Yes: 0-1/4 RIGHT KNEE Increase Range of Motion Yes: 0-125-130 R KNEE AROM Increase Strength Yes: 4+-5/5 B/L LE Improve Gait Pattern without Assistive Yes: WFL Device Increase Ability to Walk Yes: 60MIN Increase Ability to Stand Yes: 60MIN Improve Ability For Household Care Yes: 60MIN Improve LEFI Score Yes: 65 Decrease Subjective C/O Pain Yes: 0-2/10 W/ABOVE ACTIVITIES Patient to be Ind w/ Advanced HEP Yes Outpatient Therapy Plan of Care Treatment Plan May Include Therapeutic Exercise Including Home Yes Exercise Program Manual Therapy Techniques Yes Neuromuscular Re-education Yes Therapeutic Activities to Return to Yes Previous Functional/Work Level Gait Training Yes ADL/Self Care Education Yes Dry Needling Yes Thermal Modalities Yes Electrical Stimulation Yes Ultrasound/Phonophoresis Yes Iontophoresis Yes Orthotics/Bracing/Splinting Yes Vasopneumatic Compression Pump Yes Eval/Re-Eval Yes Frequency Times per week 2-3 Duration Number of Weeks 6-8 Addendums This patient is a candidate for social No or vocational rehab? Patient/Guardian verbally acknowledges Yes understanding of treatment program and consents to further treatment? Patient/Guardian verbally acknowledges Yes understanding of diagnosis, prognosis and goals for treatment? Eval Complexity PT Charges 80170 - Low Complexity Shoulder/Elbow Eval Shoulder Objective Measurements Elbow Objective Measurements PHYSICIAN CERTIFICATION: I certify the specified therapy services for Mimi Arellano are required, authorized, and reviewed every 30 days.
--- NOTE | 2023-07-07 09:27 | HMH.RHREAS ---
Rehab Reassessment Rehab OP Re-assessment Start: 06/09/23 09:26 Freq: Status: Active Protocol: Document 07/07/23 09:20 KAYA (Rec: 07/07/23 09:26 KAYA [id number]) E-signed By Alonzo Dasilva, PT Rehab Re-assessment Subjective Subjective Pt reports 'I was a little lazy over the weekend with my exercises', however, reports improved strength since starting skilled P.T. Pt also reports /10 right knee pain on VAS. Objective Objective Notes MMT: RIGHT KNEE EXT 4--4/5, R KNEE FLX 4/5, R HIP FLX 4-/5, R HIP IR 4/5, R HIP ER 4-/5 W/ PAIN, R HIP ABD 4-/5 TTP: RIGHT KNEE LATERAL JT LINE 2/4, R KNEE MEDIAL JT LINE 2/4 GAIT: ANTALGIC ON LEVEL TERRAIN AROM: RIGHT KNEE FLX 0-134 Assessment Progress Assessment Progressing as Expected Assessment Notes SIGNIFICANTLY IMPROVED STRENGTH, ROM, AND TTP Patient goals met STG'S 08/25 LTG'S 04/26 Goals Not Met STG'S 03/28, LTG'S 08/26 Plan Plan Pt to continue w/skilled P.T. to make further improvements in ROM, strength, gait, and TTP to allow for optimal preparedness for upcoming right TKA procedure Frequency of Therapy 1-2x/wk Duration of therapy 4-6wks Time and Billing Re-Eval Time 12 Re-Eval Billing Units 1 PHYSICIAN CERTIFICATION: I certify the specified therapy services for Mimi Arellano are required, authorized, and reviewed every 30 days.
== END 2023-07-30 10:20 | disposition home or self-care (01) ==
LOC: PT 09:00
PROVIDERS: Visit Provider Orthopaedic Surgery
DX: M25.561 Pain in right knee (principal)
CPT/HCPCS: 97010; 97014; 97016; 97110; 97163; 97164; 97530; G0283

== ENCOUNTER 2023-08-04 12:42 | Observation (INO) | payer MEDICARE, BC, SELFPAY ==
--- NOTE | 2023-07-24 11:39 | SW/DCPLANNER ---
I called and spoke w/ this patient regarding upcoming RTKA on 08/04/23. Patient stated that she resides at home alone but has sikh family that checks on her often. Patient stated that she does have a standard walker at home. Patient plans to return to [facility] outpatient rehab once medically stable for discharge. Patient stated that her sikh family will be transporting to outpatient appointments. I will follow up w/ this patient once surgery is completed.
[2023-07-31 11:37] VITALS: BMI 27.3
--- NOTE | 2023-08-01 12:29 | SW/DCPLANNER ---
Addendum entered by Nadia Iglesias RN 08/04/23 14:00: PT/OT evaluated patient and recommended outpatient services. Patient agreeable and already has appointment in place. She also has a BSC, shower chair, and walker at home. Denies other needs at this time. Will follow while admitted. MELISSA Mays Original Note: I spoke w/ this patient regarding upcoming TKA on 08/03. Patient stated that she plans to discharge home after surgery and return to [facility] outpatient physical therapy. Patient is scheduled for outpatient PT at [facility] on 08/07/23. Patient did not have any further question/concerns at this time.
[2023-08-01 14:00] VITALS: BP 143/65; PULSE 62; RESP 18; O2SAT 99
[2023-08-01 14:30] VITALS: BP 135/86; PULSE 86; RESP 18; O2SAT 97
[2023-08-03 16:30] VITALS: BP 119/80; PULSE 82; RESP 18; O2SAT 97
[2023-08-04] VITALS (16 sets, daily range): BP systolic 122–168; BP diastolic 65–115; PULSE 62–93; RESP 18–20; TEMP 36.2–36.8; O2SAT 93–100; BMI 27.3; BMI 28.4
[2023-08-04] MEDS: LACTATED RINGERS 1000ML 1,000 ML 100 ML IV ×2 (07:41→13:27)
--- NOTE | 2023-08-04 08:56 | EXP.ANES.CKL ---
[facility] Disclaimer: The information contained in this section may have been updated after the patient was seen, as this information can be updated by other users. Medical History Deep vein thrombosis (DVT) History of anemia Fibromyalgia CANELO (obstructive sleep apnea) Cataract Surgical History History of tonsillectomy H/O: hysterectomy History of appendectomy Status post-operative repair of closed fracture of left hip Family History Other Cancer Coronary artery disease Hypertension Leukemia Social History Smoking Status: Never smoker alcohol intake: current alcohol intake frequency: a few times a month substance use type: denies use current occupational status: retired Travel in the last 8 weeks: None household members: none housing: house caffeine: Yes [facility] Anesthesia Checklist Patient Identification Patient Identification: Arm Band and Verbal (Name & ) Structural Data Admitted From: Home Planned Operative Procedure/s: RIGHT TKA Consent for Planned Operative Procedure(s) Verified: Yes Verified Documents: Surgical Consent and History and Physical NPO Status Verified Time NPO: 20:30 Chart Verification Results Verified: CBC, BMP and ECG (& ECHO) Additional verifications Patient : No Anesthesia Reactions: No Hx Blood Transfusions: No Blood Transfusion Reaction: No Cardiovascular Assessment Heart Sounds: S1 & S2 Pulse Rhythm: Irregular Peripheral Edema: No Airway Assessment Mallampati Score:: Class II C-Spine Mobility Assessed: Yes (FROM) TMJ Mobility Assessed: Yes Dentition: Good Dentition (Full mouth Caps) Neurological Assessment Level of Consciousness: Awake, Alert, Appropriate and Follows Commands Hx Seizures: No Numbness or tingling in extremities: No Anesthesia Plan Anesthesia Risk discussed: Yes Anesthesia Plan: Verified ASA Class: III Anesthesia Type: MAC w/Spinal (& Adductor Canal Block)
[2023-08-04] MEDS: TRANEXAMIC ACID IV (09:43)
[2023-08-04] MEDS: SODIUM CHLORIDE 0.9% IV (09:43)
[2023-08-04] MEDS: CLINDAMYCIN PHOSPHATE/D5W 900 MG/50 ML PIGGYBACK 100 MG IV ×2 (10:16→17:10)
--- NOTE | 2023-08-04 11:23 | HMH.PHAINT1 ---
Pharmacy Intervention Comments: MEDICATION RECONCILIATION COMPLETED ON PATIENT USING EXTERNAL FILL HISTORY FROM PHARMACY. -MIYA WAYNE, FRACISCOD
--- NOTE | 2023-08-04 12:15 | P.PNANES_ITS ---
[facility] Anesthesia Record Part I Anesthesia Record I Intake, IV Amount: 1,400 Hydration: Adequate Estimated blood loss (mL): 125 Urine output (mL): 400 Blood Products used (#): none Blood Pressure: 122/68 SaO2: 93 Pulse Rate: 62 Airway Patency: Patent Respiratory Rate: 18 Temperature: 97.1 F Patient is:: Awake (Talking) and Stable Stable to PACU at:: 12:05
--- NOTE | 2023-08-04 12:20 | XR_ITS ---
FINAL REPORT CLINICAL HISTORY: s/p right TKA COMPARISON: 10/09/2021 FINDINGS: 2 views of the right knee were obtained. There has been interval arthroplasty. The hardware is unremarkable. Calcification along the posterior lateral joint is probably extra-articular. There is no acute fracture. IMPRESSION: Normal post arthroplasty changes. Reviewed, Interpreted and Dictated by Mars Monique MD Transcribed by Dalia Sterling Authenticated and [facility]
--- NOTE | 2023-08-04 12:25 | EXP.OP.NOTE ---
Date of procedure: 08/04/23 Pre-op Diagnosis:: Right end-stage osteoarthritis knee Post-op Diagnosis:: Same Procedure performed:: Right total knee arthroplasty Surgeon:: Bill Holder DO Transitional Living Specialist(s):: MINI Gutierrez SOAKING PIT OPERATOR:: Addie Yarbrough Anesthesia: regional and spinal Estimated blood loss (mL): 50 Clinical Note:: Implants Medacta size 3 femur, size 2 tibia, 11 mm poly implant, size 1 patella Operative findings:: See dictation Operative note:: Patient is identified preoperatively. Right knee marked with yes my initials. Transferred to operative suite after undergoing abductor canal block with anesthesia. Given spinal anesthesia. Then placed supine on the bed right lower extremity prepped and draped normal sterile fashion. Once prepped and draped final operative timeout performed to identify proper patient procedure and extremity. Everyone of involved the case agreed. There is no counter indications to beginning. Patient did receive preoperative antibiotics. Marking pen was used to ramona plan incision midline in the knee. Esmarch was used to exsanguinate the extremity pneumatic tourniquet was inflated to 300 mmHg. Knee was flexed. At the time of incision TXA was dosed. Skin knife is used to incise through skin down to soft tissue standard medial parapatellar approach was utilized and patella was everted. Anterior horn of the medial and lateral meniscus were sacrificed ACL were sacrificed. Retractors were placed. Soft tissue was removed around the femur. Patient had undergone preoperative CT scan planning with custom made my knee cutting blocks. The cutting blocks came also with the knee model the femoral cutting block was placed in the appropriate place compared to the cutting guide and pinned in the place. The distal femoral cut was made. The low holes were drilled for the 4-in-1 cutting guide for size 3 femur. 4-in-1 cutting block was then pinned into place and anterior and posterior cuts were made anterior and posterior chamfer cuts were made guide was removed osteotome was used to remove extra bone the remaining of the medial and lateral meniscus were removed. The tibia then was exposed with Z retractors. The mind the cutting guides for the tibia were also utilized and pinned in the place and proper cut depth was confirmed. Once pin the tibia was cut. The lollipop guide for size 2 tibia was selected and pinned into proper place and rotation based on preoperative planning. The opening reamer was utilized followed by the punch which was left in place a size 10 poly was selected and then upgraded to an 11 poly flexion extension was very stable at a size 11. Tensions then brought the patella patella cutting guide was utilized osteotomy the patella performed size 1 patella was utilized and the 3 peg patella was utilized. And sized to a size 1 the trial was placed and knee was taken through flexion extension found to be very stable patella did track properly Irrigation performed as the trial implants were removed. Final implants were opened on the back table. Cement was mixed. Once ready was cemented in the tibial component removed excess cement placed the poly and engaged the poly and then placed the femoral component brought the knee in extension removed excess cement around the prosthesis. Patella was then cemented in place brought into extension and held with a patellar clamp until the cement was allowed to harden Tourniquet was then deflated and hemostasis was obtained with electrocautery. Irrigation was repeated. Capsule was closed with a running #1 strata fix suture followed by deep layers with 0 Vicryl subcutaneous with 2-0 Vicryl surgical clips in the skin for closure. Sterile dressing placed from toe to thigh patient waken from anesthesia taken to recovery in stable condition.. Condition: stable Disposition: PACU Complications:: None apparent
--- NOTE | 2023-08-04 13:10 | PC.NURSE ---
arrived to floor by bed from surgery at 12:35
[2023-08-04] MEDS: OXYCODONE 5MG IMMEDIATE RELEASE TABLET 5 MG PO ×3 (13:31→19:54)
--- NOTE | 2023-08-04 14:00 | HMH.PTEV ---
Physical Therapy Evaluation Rehab PT IP Evaluation Start: 08/04/23 11:58 Freq: ONCE Status: Active Protocol: Document 08/04/23 13:56 ELYSSA (Rec: 08/04/23 14:00 ELYSSA [email or web address]) Subjective/History History History Pt is a 78 y/o female who presents s/p R TKA 03/23/23. Subjective Subjective PLOF per pt report: IND with ADLs and functional mobility. Owns a RW. Lives alone in a single-story home with 1 GUR[address]ER. Has friends who will be checking in on her intermittently throughout the day. New diagnosis of cancer in past 12 No months? Rehab PT IP Eval Objective Appearance Patient Behavior Appropriate,Cooperative Patient Orientation Person,Birthday,Situation Difficulty following instructions none Speech Pattern Clear Ambulation Patient Able to Ambulate Yes Ambulation Observation IP General Gait Pattern Observation Antalgic Gait Ambulation Distance (feet) 10 Ambulation Assistive Device Rolling Walker Ambulation Ability Contact Guard/Hand Hold Balance Ability to Arise Able, uses arms to help Sitting Balance Steady, safe Standing Balance Steady, wide stance Transfers Bed Transfer Ability Supervision/Stand by Sit to Stand Bed Transfer Ability Contact Guard/Hand Hold Rehab PT IP prob,goals,plan Problems Date of Evaluation: 08/04/23 PT IP Problems Transfers,Gait,Balance,Safety Rehab Potential Rehab Potential Good Equipment Needs Assistive Devices Rolling / Wheeled Walker Plan PT Intervention Plan Transfers,Gait,Balance,Safety, Therapeutic Exercise Other Intervention Plan 1-2 times PT Plan Frequency Daily Duration LOS Discharge Goals Bed Transfer Ability Independent Sit to Stand Chair Transfer Ability Supervision/Stand by Ambulation Assistive Device Rolling Walker Ambulation Distance (feet) 15 Discharge Plan PT Discharge Plan Initial physical therapy evaluation performed. Patient presents below baseline at this time in functional mobility, transfers, gait, and strength. Pt would benefit from skilled PT while at [facility] to prevent further functional decline and maximize safety with mobility. Pt safe to d/c home when deemed medically necessary d/t current level of mobility, home set-up, and friend support. PT recommending outpatient PT services to address deficits. Eval Complexity Eval Charge Codes 56823 - Low Complexity PHYSICIAN CERTIFICATION: I certify the specified therapy services for Mimi Arellano are required, authorized, and reviewed every 30 days.
--- NOTE | 2023-08-04 14:25 | P.PNANES_ITS ---
[facility] Anesthesia Record Part II Anesthesia Record Part II Discharge Time: 12:30 Destination: Medical Surgical Department PACU nurse assessment reviewed?: Yes Patient Condition:: Good Anesthesia Complications:: None Swallowing reflex intact?: Yes Airway Patency: Patent Cyanosis?: No Blood Pressure: 140/88 SaO2: 98 Respiratory Rate: 19 Pulse Rate: 78 Temperature: 97.1 F Mental Status: Alert & Oriented Pain level:: 0 Nausea and/or vomitting:: None Intake, IV Amount: 1,400 Hydration: Adequate
--- NOTE | 2023-08-04 19:30 | PC.NURSE ---
patient reports increasing amount of pain in the R knee - Tx per APR. PolarPack in place and cool. Patient was educated that if she has breakthrough pain we can contact Dr. Holder.
--- NOTE | 2023-08-04 21:01 | PC.NURSE ---
Contacted Dr. Holder r/t hx of DVT/AFib/home eliquis and increasing pain medication frequency r/t breakthrough pain. restarted home eliquis and increased OXYIR from Q6H to Q4H
[2023-08-04] MEDS: APIXABAN 5MG TABLET 5 MG PO (21:34)
--- NOTE | 2023-08-04 21:35 | PC.NURSE ---
Patient took home medications Eliquis and Duloxetine
[2023-08-05] MEDS: OXYCODONE 5MG IMMEDIATE RELEASE TABLET 5 MG PO ×4 (00:04→12:20)
[2023-08-05 01:30] VITALS: BP 139/74; PULSE 73; RESP 18; TEMP 36.6; O2SAT 96
[2023-08-05] MEDS: CLINDAMYCIN PHOSPHATE/D5W 900 MG/50 ML PIGGYBACK 100 MG IV (01:40)
[2023-08-05 04:00] VITALS: BP 162/82; PULSE 71; RESP 18; TEMP 36.8; O2SAT 97; BMI 29.2
--- NOTE | 2023-08-05 04:39 | PC.NURSE ---
Patient alert and oriented x4. Tolerating room air well. Lin in place and draining. Complaints of post-op right knee and ankle pain, treated per MAR. Polar pack in place and working properly. Patient has not expressed any other needs this shift. Bed in lowest position and call light within reach.
[2023-08-05 06:58] LABS: Basophils % 0.4 % (0.1-2.0); Eosinophils # 0.1 K/mm3 (0.0-0.4); Eosinophils % 0.5 % (0.1-12.0); Hematocrit 37.1 % (37.0-47.0); Hemoglobin 11.8 g/dL (12.2-16.2); Lymphocytes # 1.7 K/mm3 (0.7-4.5); Lymphocytes % 17.8 % (10-50); Mean Corpuscular HGB Conc 31.8 g/dL (31.8-35.4); Mean Corpuscular Hemoglobin 29.6 pg (27.0-31.2); Mean Platelet Volume 7.9 fl (7.4-10.4); Monocytes # 0.7 K/mm3 (0.1-1.0); Neutrophils # 7.1 K/mm3 (1.8-7.8); Neutrophils % 74.3 % (37.0-80.0); Platelet Count 242 K/mm3 (142-424); Red Blood Count 3.99 M/mm3 (4.20-5.40); Red Cell Distribution Width 14.3 % (11.5-17.5); White Blood Count 9.5 K/mm3 (4.8-10.8)
[2023-08-05 07:16] LABS: Chloride 105 mmol/L (98-107); Sodium 139 mmol/L (136-145)
[2023-08-05 07:19] LABS: Blood Urea Nitrogen 13 mg/dl (7-17); Creatinine Clearance Estimated 65 mL/min (50-200); Estimated Glomerular Filt Rate 81 ml/min (>60); GFR (African American) 98 ML/MIN (>60)
[2023-08-05 07:20] LABS: Calcium 9.1 mg/dl (8.4-10.2); Carbon Dioxide 30 mmol/L (22.0-30.0); Glucose 96 mg/dl (74-100)
[2023-08-05 08:00] VITALS: BP 156/82; PULSE 82; RESP 18; TEMP 36.8; O2SAT 98
[2023-08-05] MEDS: APIXABAN 5MG TABLET 5 MG PO (08:30)
[2023-08-05] MEDS: DULOXETINE 30MG CAPSULE.DR 30 MG PO (08:58)
--- NOTE | 2023-08-05 12:06 | P.HPDS_ITS ---
General Admission date:: 08/04/23 Discharge date: 08/05/23 *Admission Date: 08/04/23 *Chief complaint: End-stage osteoarthritis right knee *History of present illness: 78-year-old female with end-stage osteoarthritis right knee failed all conservative treatment prehab prior to planning for total knee arthroplasty presented for total knee arthroplasty 08/04/2023. [facility] Disclaimer: The information contained in this section may have been updated after the patient was seen, as this information can be updated by other users. Medical History Deep vein thrombosis (DVT) History of anemia Fibromyalgia CANELO (obstructive sleep apnea) Cataract Surgical History History of tonsillectomy H/O: hysterectomy History of appendectomy Status post-operative repair of closed fracture of left hip Family History Other Cancer Coronary artery disease Hypertension Leukemia Social History Smoking Status: Never smoker alcohol intake: current alcohol intake frequency: a few times a month substance use type: denies use current occupational status: retired Travel in the last 8 weeks: None household members: none housing: house caffeine: Yes Review of Systems Constitutional Constitutional: Reports system reviewed and no additional complaints, except as documented *Cardiovascular Cardiovascular: Denies chest pain and Denies dyspnea on exertion *Respiratory Respiratory: Denies dyspnea on exertion *Gastrointestinal Gastrointestinal: Reports system reviewed and no additional complaints, except as documented *Genitourinary Genitourinary: Reports system reviewed and no additional complaints, except as documented *Musculoskeletal Musculoskeletal: Reports as per HPI Integumentary/Breasts Skin/Breast: Reports system reviewed and no additional complaints, except as documented *Neurologic Neurologic: Reports system reviewed and no additional complaints, except as documented Psychiatric Psychiatric: Reports system reviewed and no additional complaints, except as doc umented Exam Data for Last 24 hours Vital signs and Labs for Last 24 Hours: Temp Pulse Resp BP Pulse Ox O2 Del Method 98.2 F 82 18 156/82 H 98 Room Air 08/05/23 08:00 08/05/23 08:00 08/05/23 08:00 08/05/23 08:00 08/05/23 08:00 08/05/23 11:00 Laboratory Results - last 24 hr 08/05/23 06:30: WBC 9.5, RBC 3.99 L, Hgb 11.8 L, Hct 37.1, MCV 93.0, MCH 29.6, MCHC 31.8, RDW 14.3, Plt Count 242, MPV 7.9, Neut % (Auto) 74.3, Lymph % (Auto) 17.8, Houghton % (Auto) 7.0, Eos % (Auto) 0.5, Baso % (Auto) 0.4, Neut # (Auto) 7.1, Lymph # (Auto) 1.7, Houghton # (Auto) 0.7, Eos # (Auto) 0.1, Baso # (Auto) 0.0, Sodium 139, Potassium 4.0, Chloride 105, Carbon Dioxide 30, Anion Gap 8.0, BUN 13, Creatinine 0.70, Estimated Creat Clear 65, Estimated GFR 81, Est GFR ( Amer) 98, Glucose 96, Calcium 9.1 I & O for Last 24 hours: Intake & Output 08/02/23 08/03/23 08/04/23 08/05/23 23:59 23:59 23:59 23:59 Intake Total 2800 / 2800 816 / 816 Output Total 700 / 1300 1450 / 1450 Balance 2100 / 1500 -634 / -634 Weight 187 lb 8 oz 192 lb 11.2 oz *Routine HEENT Exam Head: Present normocephalic and atraumatic Eye: Present PERRL ENT: Present mucous membranes moist *Routine Neck Exam Neck: Present supple *Routine Respiratory Exam Respiratory: Absent accessory muscle use *Routine Cardiovascular Exam Cardiovascular: Present irregular rhythm *Routine Abdominal Exam Abdominal: Present soft *Routine Rectal Exam Rectal:: deferred *Routine Genitalia Exam Genitalia:: deferred *Routine Extremities Exam Extremities: Present tenderness; Absent calf tenderness Comments: Right knee dressing change. No drainage. Incision clean dry and intact soraya intact. No evidence of DVT. Grossly neurovascular intact. *Routine Skin Exam Skin: Present intact *Routine Neurological Exam Neurological: Present alert and oriented X3 Meds Home Medications and Allergies Home Medications Medication Instructions Recorded Confirmed Type apixaban 5 mg tablet (Eliquis) 5 mg PO BID 04/16/18 08/04/23 History calcium carbonate (Antacid Calcium) 500 mg PO DAILY 05/02/21 08/04/23 History cholecalciferol (vitamin D3) 50 50 mcg PO DAILY 05/02/21 08/04/23 History mcg (2,000 unit) capsule mecobalamin (vitamin B12) 1,000 1,000 mcg PO DAILY 05/02/21 08/04/23 History mcg chewable tablet duloxetine 30 mg capsule,delayed 30 mg PO BID 10/16/21 08/04/23 History release ascorbate calcium (vitamin C) 500 500 mg PO DAILY 05/15/23 08/04/23 History mg tablet ferrous sulfate 137 mg (45 mg 137 mg PO DAILY 05/15/23 08/04/23 History iron) tablet,extended release (Slow Fe) magnesium 250 mg tablet 250 mg PO DAILY 05/15/23 08/04/23 History hydrocortisone 2.5 % topical cream 1 applic topical BID 07/17/23 08/04/23 History turmeric 400 mg capsule 400 mg PO DAILY 07/17/23 08/04/23 History oxycodone-acetaminophen 5 mg-325 1 tab PO Q4H PRN post op pain #42 08/05/23 Rx mg tablet tabs New Prescriptions to Start Prescriptions: oxycodone-acetaminophen Bill Holder Allergies Allergy/AdvReac Type Severity Reaction Status Date / Time Fish Containing Products Allergy Severe Nausea Verified 08/04/23 07:15 Iodinated Contrast Media Allergy Severe Rash Verified 08/04/23 07:15 ibuprofen [IBUPROFEN] Allergy Intermediate I-RASH Verified 08/04/23 07:15 latex [LATEX] Allergy Intermediate I-RASH Verified 08/04/23 07:15 Penicillins [PENICILLINS] Allergy Intermediate I-RASH Verified 08/04/23 07:15 poison eladio extract Allergy Unknown S-BLISTERING Verified 08/04/23 07:15 [POISON ELADIO EXTRACT] WELTS cefoxitin Allergy Unknown Verified 08/04/23 07:15 allergy reaction NSAIDS (Non-Steroidal Allergy Verified 08/04/23 07:15 Anti-Inflamma Hospital Course Hospital Course Hospital Course: Patient underwent uneventful right total knee arthroplasty on 08/04/2023 admitted to the hospital overnight consulted with physical therapy for ambulation day of surgery the block and spinal wore off during hospitalization was converted over successfully to oral pain medications stable overnight. Started back on her Eliquis for atrial fibrillation and DVT prophylaxis. Stable for discharge on 08/05/2023. Dressing changed to island dressing Home instructions given outpatient physical therapy arranged follow-up appointment arranged for staple removal Results Data Completed and Pending Labs on day of discharge: Labs from last 24 hours 08/05/23 06:30 WBC 9.5 RBC 3.99 L Hgb 11.8 L Hct 37.1 MCV 93.0 MCH 29.6 MCHC 31.8 RDW 14.3 Plt Count 242 MPV 7.9 Neut % (Auto) 74.3 Lymph % (Auto) 17.8 Houghton % (Auto) 7.0 Eos % (Auto) 0.5 Baso % (Auto) 0.4 Neut # (Auto) 7.1 Lymph # (Auto) 1.7 Houghton # (Auto) 0.7 Eos # (Auto) 0.1 Baso # (Auto) 0.0 Sodium 139 Potassium 4.0 Chloride 105 Carbon Dioxide 30 Anion Gap 8.0 BUN 13 Creatinine 0.70 Estimated Creat Clear 65 Estimated GFR 81 Est GFR ( Amer) 98 Glucose 96 Calcium 9.1 DS: Diagnosis Discharge Diagnosis (1) Osteoarthritis of right knee: Status: Acute Code(s): M17.11 - Unilateral primary osteoarthritis, right knee Qualifiers: Osteoarthritis type: primary Qualified Code(s): M17.11 - Unilateral primary osteoarthritis, right knee Problem details: Status post right total knee arthroplasty Discharge Plan Disposition Patient Disposition: Home, Self-Care Condition: Good Follow up Plan Follow up with: Bill Holder DO [Staff Physician] - 08/19/23 1:30 pm Prescriptions/Medication Reconciliation: New oxycodone-acetaminophen 5-325 mg tablet 1 tab PO Q4H PRN (Reason: post op pain) Qty: 42 0RF No Action cholecalciferol (vitamin D3) 50 mcg (2,000 unit) capsule 50 mcg PO DAILY mecobalamin (vitamin B12) 1,000 mcg tablet,chewable 1,000 mcg PO DAILY Antacid Calcium 215 mg calcium (500 mg) tablet,chewable 500 mg PO DAILY hydrocortisone 2.5 % cream 1 applic topical BID Patient Comments: APPLY TOPICALLY TO THE AFFECTED AREA(S) TWICE DAILY -- FOR EXTERNAL USE ONLY-- turmeric 400 mg capsule 400 mg PO DAILY Eliquis 5 mg tablet 5 mg PO BID ascorbate calcium (vitamin C) 500 mg tablet 500 mg PO DAILY Slow Fe 137 mg (45 mg iron) tablet extended release 137 mg PO DAILY magnesium 250 mg tablet 250 mg PO DAILY duloxetine 30 mg capsule,delayed release(DR/EC) 30 mg PO BID Problem Reconciliation Problems Reviewed?: Yes Patient Discharge Instructions ACTIVITY: Ambulate as tolerated DIET: advance to your usual diet Additional Instructions: May shower no soaks changed to clean dressing after shower Weightbearing as tolerated on rolling walker then to cane as able with physical therapy. Outpatient physical therapy visit on . Patient Instructions: Knee Replacement, DI for Knee Replacement, DI for Surgical Site Infection Providers Primary Care Provider: Deion Smith Admit Provider: Bill Holder Attending Provider: Bill Holder
--- NOTE | 2023-08-06 15:07 | CARE MANAGER ---
Spoke with patient to discuss recent discharge. Patient stated that she is feeling better today, was able to waste picker her pain medication prescribed at discharge and was aware of scheduled f/u appt as well as needing to schedule a f/u appt with PCP. No questions or concerns voiced at time of call.
== END 2023-08-05 12:46 | disposition home or self-care (01) ==
LOC: 2ND 12:43
PROVIDERS: Admitting Provider Orthopaedic Surgery; PCP Family Medicine; Visit Provider Orthopaedic Surgery
PROC: (CPT 27447; principal; 2023-08-04 08:30)
DX: M17.11 Unilateral primary osteoarthritis, right knee (principal); Z79.899 Other long term (current) drug therapy
CPT/HCPCS: 27447; 36415; 73560; 80048; 85025; 96374; 97161; 97530; C1776; C9290; G0378; J1100; J1885; J2405; J2704; J3010; J7120

== ENCOUNTER 2023-08-19 12:44 | Outpatient (CLI) | payer MEDICARE, BC, SELFPAY ==
--- NOTE | 2023-08-19 12:49 | XR_ITS ---
FINAL REPORT CLINICAL HISTORY: RT KNEE PAIN COMPARISON: 08/04/2023 FINDINGS: Three views of the right knee reveal that the patient has undergone a prior right knee arthroplasty. The bony alignment is normal. Surgical soraya are still noted anteriorly. A moderate joint effusion is present. No localized soft tissue abnormality is identified. IMPRESSION: Right knee arthroplasty, with a moderate joint effusion. Reviewed, Interpreted and Dictated by Chad Quiroz III, MD Transcribed by Danielle Crespo Authenticated and [facility] [place]
== END 2023-08-19 23:59 | disposition home or self-care (01) ==
LOC: RAD 12:46
PROVIDERS: PCP Family Medicine; Visit Provider Orthopaedic Surgery
DX: Z96.651 Presence of right artificial knee joint (principal)
CPT/HCPCS: 73562

== ENCOUNTER 2023-09-20 22:26 | Emergency (ER) | payer MEDICARE, BC, SELFPAY ==
[2023-09-20 22:28] VITALS: BP 159/97; PULSE 90; RESP 13; TEMP 36.8; O2SAT 96; BMI 26.6
[2023-09-20] MEDS: METHYLPREDNISOLONE SOD SUCC 125MG VIAL 125 MG IV (22:55)
[2023-09-20] MEDS: FAMOTIDINE 20MG TABLET 40 MG PO (22:55)
[2023-09-20] MEDS: diphenhydrAMINE 50MG/ML VIAL 50 MG IV (22:55)
[2023-09-20 22:58] LABS: Basophils # 0.1 K/mm3 (0-0.2); Basophils % 0.7 % (0.1-2.0); Eosinophils # 0.6 K/mm3 (0.0-0.4); Eosinophils % 7.9 % (0.1-12.0); Hematocrit 38.9 % (37.0-47.0); Hemoglobin 12.8 g/dL (12.2-16.2); Lymphocytes # 2.2 K/mm3 (0.7-4.5); Mean Corpuscular HGB Conc 32.9 g/dL (31.8-35.4); Mean Corpuscular Hemoglobin 30.1 pg (27.0-31.2); Mean Corpuscular Volume 91.6 fl (81-99); Mean Platelet Volume 7.9 fl (7.4-10.4); Monocytes # 0.5 K/mm3 (0.1-1.0); Monocytes % 5.9 % (1.7-9.3); Neutrophils # 4.7 K/mm3 (1.8-7.8); Neutrophils % 58.5 % (37.0-80.0); Platelet Count 388 K/mm3 (142-424); Red Blood Count 4.25 M/mm3 (4.20-5.40); Red Cell Distribution Width 14.4 % (11.5-17.5)
[2023-09-20 22:59] LABS: Anion Gap 12.6 mEq/L (5-15); Blood Urea Nitrogen 14 mg/dl (7-17); Calcium 9.4 mg/dl (8.4-10.2); Carbon Dioxide 28 mmol/L (22.0-30.0); Chloride 105 mmol/L (98-107); Estimated Glomerular Filt Rate 70 ml/min (>60); GFR (African American) 84 ML/MIN (>60); Glucose 108 mg/dl (74-100); Potassium 3.6 mmoL/L (3.5-5.1); Sodium 142 mmol/L (136-145)
--- NOTE | 2023-09-20 23:06 | ED_ITS ---
Discharge Plan Disposition Patient Disposition: Home, Self-Care Condition: Good Prescriptions Prescriptions: New prednisone 50 mg tablet 50 mg PO DAILY 5 Days Qty: 5 0RF No Action cholecalciferol (vitamin D3) 50 mcg (2,000 unit) capsule 50 mcg PO DAILY mecobalamin (vitamin B12) 1,000 mcg tablet,chewable 1,000 mcg PO DAILY Antacid Calcium 215 mg calcium (500 mg) tablet,chewable 500 mg PO DAILY hydrocortisone 2.5 % cream 1 applic topical BID Patient Comments: APPLY TOPICALLY TO THE AFFECTED AREA(S) TWICE DAILY -- FOR EXTERNAL USE ONLY-- turmeric 400 mg capsule 400 mg PO DAILY Eliquis 5 mg tablet 5 mg PO BID ascorbate calcium (vitamin C) 500 mg tablet 500 mg PO DAILY Slow Fe 137 mg (45 mg iron) tablet extended release 137 mg PO DAILY magnesium 250 mg tablet 250 mg PO DAILY duloxetine 30 mg capsule,delayed release(DR/EC) 30 mg PO BID oxycodone-acetaminophen 5-325 mg tablet 1 tab PO Q4H PRN (Reason: post op pain) Qty: 42 0RF Referrals Follow up/Referrals: Deion Smith MD [Primary Care Provider] - See instructions Activity Restrictions/Add. Instructions Additional Instructions/Restrictions: Please take steroids for presumed allergic reaction. Please follow-up with your primary care provider. Please return to the emergency department if you develop any new or worsening symptoms or become concerned for your health.. Clinical Impressions Clinical Impression: Allergic reaction, Contact dermatitis Instructions Patient Instructions: DI for Skin Abscess Print Language Print Language: [place] Discharge ED Provider: Raghav Castano General Adult HPI <Osmel Santos MD - Last Filed: 09/20/23 23:12> General Chief complaint: Skin/Abscess/Foreign Body Stated complaint: Allergic reaction unknown source,throat closing Time Seen by Provider: 09/20/23 22:26 History of Present Illness HPI narrative: Patient is a 78-year-old female with past medical history of recurrent contact dermatitis who presents emergency department for evaluation of a rash. History is obtained by patient at bedside. A few days ago she had exposure to new puppies who did figure eights between her legs. No new clothing, other exposures, lotions, foods. Since then she has had erythematous lesions scattered about her lower extremities from the knee distally. She has had some mild infraorbital swelling worse on the left than the right. She does not feel her voice is significantly raspy however her son noticed that it was on the phone and convinced her to come here for continued evaluation. No vomiting, no chest pain reported, no other acute complaints at this time. Of note patient did have knee replacement on the right a month and a half ago and has been tolerating rehab well. Related Data Home Medications ?Medication ?Instructions ?Recorded ?Confirmed apixaban 5 mg tablet (Eliquis) 5 mg PO BID 04/16/18 08/19/23 calcium carbonate (Antacid Calcium) 500 mg PO DAILY 05/02/21 08/19/23 cholecalciferol (vitamin D3) 50 50 mcg PO DAILY 05/02/21 08/19/23 mcg (2,000 unit) capsule mecobalamin (vitamin B12) 1,000 1,000 mcg PO DAILY 05/02/21 08/19/23 mcg chewable tablet duloxetine 30 mg capsule,delayed 30 mg PO BID 10/16/21 08/19/23 release ascorbate calcium (vitamin C) 500 500 mg PO DAILY 05/15/23 08/19/23 mg tablet ferrous sulfate 137 mg (45 mg 137 mg PO DAILY 05/15/23 08/19/23 iron) tablet,extended release (Slow Fe) magnesium 250 mg tablet 250 mg PO DAILY 05/15/23 08/19/23 hydrocortisone 2.5 % topical cream 1 applic topical BID 07/17/23 08/19/23 turmeric 400 mg capsule 400 mg PO DAILY 07/17/23 08/19/23 Previous Rx's ?Medication ?Instructions ?Recorded oxycodone-acetaminophen 5 mg-325 1 tab PO Q4H PRN post op pain #42 08/05/23 mg tablet tabs prednisone 50 mg tablet 50 mg PO DAILY 5 days #5 tabs 09/21/23 Allergies Allergy/AdvReac Type Severity Reaction Status Date / Time Fish Containing Products Allergy Severe Nausea Verified 08/19/23 13:56 Iodinated Contrast Media Allergy Severe Rash Verified 08/19/23 13:56 ibuprofen [IBUPROFEN] Allergy Intermediate I-RASH Verified 08/19/23 13:56 latex [LATEX] Allergy Intermediate I-RASH Verified 08/19/23 13:56 Penicillins [PENICILLINS] Allergy Intermediate I-RASH Verified 08/19/23 13:56 poison eladio extract Allergy Unknown S-BLISTERING Verified 08/19/23 13:56 [POISON ELADIO EXTRACT] WELTS cefoxitin Allergy Unknown Verified 08/19/23 13:56 allergy reaction NSAIDS (Non-Steroidal Allergy Verified 08/19/23 13:56 Anti-Inflamma PFSH <Osmel Santos MD - Last Filed: 09/20/23 23:12> PFSH Disclaimer: The information contained in this section may have been updated after the patient was seen, as this information can be updated by other users. Medical History Nocturnal hypoxemia Prolonged grief disorder Overweight Callus of foot Spin callus at IPJ Right Hallux, secondary to foot rotation, progressive flat foot and PTTD. Avascular necrosis of left femoral head Grieving BMI 26.0-26.9,adult REM behavioral disorder RLS (restless legs syndrome) Hypoferremia Femoral neck fracture Hip fracture Ankle edema, bilateral Onychodystrophy Pain in left ankle and joints of left foot Onychoincurvatum Onychomycosis Callus of foot Deep vein thrombosis (DVT) History of anemia Fibromyalgia CANELO (obstructive sleep apnea) Cataract Surgical History History of tonsillectomy H/O: hysterectomy History of appendectomy Status post-operative repair of closed fracture of left hip Family History Other Cancer Coronary artery disease Hypertension Leukemia Social History Smoking Status: Never smoker alcohol intake: current alcohol intake frequency: a few times a month substance use type: denies use current occupational status: retired Travel in the last 8 weeks: None household members: none housing: house caffeine: Yes <Osmel Santos MD - Last Filed: 09/20/23 23:12> ROS Obtained: Yes Systems reviewed as appropriate & no additional complaints except as documented Physical Exam <Osmel Santos MD - Last Filed: 09/20/23 23:12> General General appearance: alert and in no apparent distress Head Head exam: atraumatic and normocephalic Eye Eye exam: Present PERRL, EOMI and other (No exophthalmos, mild infraorbital edema left greater than right) ENT ENT exam: Present normal oropharynx and mucous membranes moist Neck Neck exam: Present normal inspection and full ROM Chest Chest inspection: Present normal inspection and symmetric chest wall rise Respiratory Respiratory exam: Present normal lung sounds bilaterally; Absent respiratory distress Cardiovascular Cardiovascular exam: Present regular rate and normal rhythm Abdominal Exam Abdominal exam: Present soft; Absent tenderness Extremities Exam Extremities exam: Present full ROM (Bilateral knees) and other (Scattered confluent erythematous patches over the bilateral lower extremities from the knees distally with areas of clearing, mild edema throughout. Sparing the soles and feet. Sparing the thighs bilaterally.) Neurological Exam Neurological exam: Present alert Psychiatric Psychiatric exam: Present normal affect Skin Skin exam: Present warm and dry Medical Decision Making <Osmel Santos MD - Last Filed: 09/20/23 23:12> Ruben Inquiry Pt receiving controlled substance: No Vital Signs: 09/20/23 22:28 09/20/23 23:30 09/21/23 00:01 Temperature 98.2 F Temperature Source Oral Pulse Rate 80 83 Pulse Rate [Right] 90 Respiratory Rate 13 13 13 Blood Pressure 187/82 H 194/106 H Blood Pressure [Right Arm] 159/97 H Blood Pressure Mean [Right Arm] 117 Blood Pressure Source Blood Pressure Source [Right Arm] Automatic Cuff Blood Pressure Position Blood Pressure Position [Right Arm] Sitting 02 Sat by Pulse Oximetry 96 98 96 Oxygen Delivery Method Room Air 09/21/23 00:16 09/21/23 01:04 Temperature 98.0 F Temperature Source Oral Pulse Rate 82 84 Pulse Rate [Right] Respiratory Rate 12 17 Blood Pressure 160/76 H 161/97 H Blood Pressure [Right Arm] Blood Pressure Mean [Right Arm] Blood Pressure Source Automatic Cuff Blood Pressure Source [Right Arm] Blood Pressure Position Sitting Blood Pressure Position [Right Arm] 02 Sat by Pulse Oximetry 96 Oxygen Delivery Method Room Air Lab Data Lab Results 09/20/23 22:30: WBC 8.0, RBC 4.25, Hgb 12.8, Hct 38.9, MCV 91.6, MCH 30.1, MCHC 32.9, RDW 14.4, Plt Count 388, MPV 7.9, Neut % (Auto) 58.5, Lymph % (Auto) 27.0, Frontier % (Auto) 5.9, Eos % (Auto) 7.9, Baso % (Auto) 0.7, Neut # (Auto) 4.7, Lymph # (Auto) 2.2, Frontier # (Auto) 0.5, Eos # (Auto) 0.6 H, Baso # (Auto) 0.1, Sodium 142, Potassium 3.6, Chloride 105, Carbon Dioxide 28, Anion Gap 12.6, BUN 14, Creatinine 0.80, Estimated GFR 70, Est GFR ( Amer) 84, Glucose 108 H, Calcium 9.4 09/20/23 22:30 09/20/23 22:30 Orders (Tests/Meds): ED MEDICATIONS Discontinued Medications Generic Name Dose Route Start Last Admin Trade Name Freq PRN Reason Stop Dose Admin Diphenhydramine HCl 50 mg 09/20/23 22:49 09/20/23 22:55 Diphenhydramine 50mg/Ml Vial IV 09/20/23 22:50 50 mg ONCE ONE Administration Famotidine 40 mg 09/20/23 22:49 09/20/23 22:55 Famotidine 20mg Tablet PO 09/20/23 22:50 40 mg ONCE ONE Administration Methylprednisolone Sodium Succinate 125 mg 09/20/23 22:49 09/20/23 22:55 Methylprednisolone Sod Succ 125mg Vial IV 09/20/23 22:50 125 mg ONCE ONE Administration ORDERS Category Date Time Status BMP [Basic Metabolic Panel] Stat Lab 09/20/23 22:30 Completed CBC w/Auto Diff [Complete Blood Count Auto Diff] Stat Lab 09/20/23 22:30 Completed Medical Decision Narrative: In summary patient is 78-year-old female past medical history described above who presents emergency department for evaluation of rash and raspy voice. Patient is hemodynamically stable nontoxic-appearing upon arrival, afebrile. Patient does not currently meet criteria for anaphylaxis as she does not have hives, no wheezing, no vomiting. I suspect that the swelling beneath her eyes is consistent with allergic shiners, the rash of her bilateral lower extremities is consistent with contact dermatitis. Infection with cellulitis of bilateral lower extremities would be an odd distribution and patient is well-appearing and afebrile. She has a well-healed surgical scar over her right knee and full range of motion, no current concern for septic joint. Mild edema of the bilateral lower extremities distal to the knee over areas of erythema, no asymmetric edema to suggest DVT. Given this I feel that this is most consistent with contact dermatitis and allergy mediated reaction. Initial interventions include methylprednisolone and IV Benadryl. Patient will undergo a period of observation. She does not have any new drugs to suggest angioedema of her larynx and although her voice might be a little bit raspy it is difficult for me to tell what her baseline is and she is largely phonating normally. Repeat administration pending at time of transfer of care to the oncoming physician, Dr. Castano. <Raghav Castano MD - Last Filed: 09/21/23 02:58> Vital Signs: 09/20/23 22:28 09/20/23 23:30 09/21/23 00:01 Temperature 98.2 F Temperature Source Oral Pulse Rate 80 83 Pulse Rate [Right] 90 Respiratory Rate 13 13 13 Blood Pressure 187/82 H 194/106 H Blood Pressure [Right Arm] 159/97 H Blood Pressure Mean [Right Arm] 117 Blood Pressure Source Blood Pressure Source [Right Arm] Automatic Cuff Blood Pressure Position Blood Pressure Position [Right Arm] Sitting 02 Sat by Pulse Oximetry 96 98 96 Oxygen Delivery Method Room Air 09/21/23 00:16 09/21/23 01:04 Temperature 98.0 F Temperature Source Oral Pulse Rate 82 84 Pulse Rate [Right] Respiratory Rate 12 17 Blood Pressure 160/76 H 161/97 H Blood Pressure [Right Arm] Blood Pressure Mean [Right Arm] Blood Pressure Source Automatic Cuff Blood Pressure Source [Right Arm] Blood Pressure Position Sitting Blood Pressure Position [Right Arm] 02 Sat by Pulse Oximetry 96 Oxygen Delivery Method Room Air Lab Data Lab Results 09/20/23 22:30: WBC 8.0, RBC 4.25, Hgb 12.8, Hct 38.9, MCV 91.6, MCH 30.1, MCHC 32.9, RDW 14.4, Plt Count 388, MPV 7.9, Neut % (Auto) 58.5, Lymph % (Auto) 27.0, Frontier % (Auto) 5.9, Eos % (Auto) 7.9, Baso % (Auto) 0.7, Neut # (Auto) 4.7, Lymph # (Auto) 2.2, Frontier # (Auto) 0.5, Eos # (Auto) 0.6 H, Baso # (Auto) 0.1, Sodium 142, Potassium 3.6, Chloride 105, Carbon Dioxide 28, Anion Gap 12.6, BUN 14, Creatinine 0.80, Estimated GFR 70, Est GFR ( Amer) 84, Glucose 108 H, Calcium 9.4 Orders (Tests/Meds): ED MEDICATIONS Discontinued Medications Generic Name Dose Route Start Last Admin Trade Name Dennis PRN Reason Stop Dose Admin Diphenhydramine HCl 50 mg 09/20/23 22:49 09/20/23 22:55 Diphenhydramine 50mg/Ml Vial IV 09/20/23 22:50 50 mg ONCE ONE Administration Famotidine 40 mg 09/20/23 22:49 09/20/23 22:55 Famotidine 20mg Tablet PO 09/20/23 22:50 40 mg ONCE ONE Administration Methylprednisolone Sodium Succinate 125 mg 09/20/23 22:49 09/20/23 22:55 Methylprednisolone Sod Succ 125mg Vial IV 09/20/23 22:50 125 mg ONCE ONE Administration ORDERS Category Date Time Status BMP [Basic Metabolic Panel] Stat Lab 09/20/23 22:30 Completed CBC w/Auto Diff [Complete Blood Count Auto Diff] Stat Lab 09/20/23 22:30 Completed Medical Decision Narrative: In summary patient is 78-year-old female past medical history described above who presents emergency department for evaluation of rash and raspy voice. Patient is hemodynamically stable nontoxic-appearing upon arrival, afebrile. Patient does not currently meet criteria for anaphylaxis as she does not have hives, no wheezing, no vomiting. I suspect that the swelling beneath her eyes is consistent with allergic shiners, the rash of her bilateral lower extremities is consistent with contact dermatitis. Infection with cellulitis of bilateral lower extremities would be an odd distribution and patient is well-appearing and afebrile. She has a well-healed surgical scar over her right knee and full range of motion, no current concern for septic joint. Mild edema of the bilateral lower extremities distal to the knee over areas of erythema, no asymmetric edema to suggest DVT. Given this I feel that this is most consistent with contact dermatitis and allergy mediated reaction. Initial interventions include methylprednisolone and IV Benadryl. Patient will undergo a period of observation. She does not have any new drugs to suggest angioedema of her larynx and although her voice might be a little bit raspy it is difficult for me to tell what her baseline is and she is largely phonating normally. Repeat administration pending at time of transfer of care to the oncoming physician, Dr. Castano. Omaira BROWNE: I assumed care of the patient at the time of handoff from the prior provider. On reassessment patient hemodynamically stable. On my depend interpretation of cardiomyopathy, normal sinus rhythm, no tachycardia, normal blood pressure. No worsening of respiratory symptoms. Patient sounds nasal to me. She may be coming down with a URI. No evidence of emergent or direction at this time. Patient discharged stable condition with prescription for prednisone and return precautions and instructed to take Benadryl. Critical Care <Osmel Santos MD - Last Filed: 09/20/23 23:12> Critical Care Time Critical Care Time: No
[2023-09-20 23:30] VITALS: BP 187/82; PULSE 80; RESP 13; O2SAT 98
[2023-09-21 00:01] VITALS: BP 194/106; PULSE 83; RESP 13; O2SAT 96
[2023-09-21 00:16] VITALS: BP 160/76; PULSE 82; RESP 12; O2SAT 96
[2023-09-21 01:04] VITALS: BP 161/97; PULSE 84; RESP 17; TEMP 36.7; O2SAT 95
== END 2023-09-21 01:05 | disposition home or self-care (01) ==
PROVIDERS: Emergency Medicine; Emergency Provider Emergency Medicine; PCP Family Medicine
DX: L25.9 Unspecified contact dermatitis, unspecified cause (principal)
CPT/HCPCS: 80048; 85025; 96374; 96375; 99284; J1200; J2919

== ENCOUNTER 2023-09-23 13:47 | Outpatient (CLI) | payer MEDICARE, BC, SELFPAY ==
--- NOTE | 2023-09-23 13:53 | XR_ITS ---
FINAL REPORT CLINICAL HISTORY: HX SURGERY 7 WEEKS AGO COMPARISON: 08/04/2023 FINDINGS: Right knee Three views were obtained. There is no acute fracture or dislocation. There is right knee arthroplasty. Moderate joint effusion is identified. IMPRESSION: Postsurgical change with moderate joint effusion. Reviewed, Interpreted and Dictated by Chad Quiroz III, MD Transcribed by Gladys Schaefer Authenticated and [facility]
== END 2023-09-23 23:59 | disposition home or self-care (01) ==
LOC: RAD 13:48
PROVIDERS: PCP Family Medicine; Visit Provider Orthopaedic Surgery
DX: M17.11 Unilateral primary osteoarthritis, right knee (principal); Z96.651 Presence of right artificial knee joint
CPT/HCPCS: 73562

== ENCOUNTER 2023-09-24 13:59 | Outpatient (CLI) | payer MEDICARE, BC, SELFPAY ==
--- NOTE | 2023-09-24 14:07 | MM_ITS ---
PROCEDURE INFORMATION: Exam: MG Bilateral Screening 3D Mammography Exam date and time: 09/24/2023 1:53 PM Age: 78 years old Clinical indication: Screening examination TECHNIQUE: Imaging protocol: Bilateral Screening tomosynthesis and 2D mammography including computer-aided detection (CAD) when performed. COMPARISON: 1. MG MM DIG SCREENING MAMM BI W/CAD 09/20/2022 8:04 AM 2. MG MM DIG SCREENING MAMM BI W/CAD 09/18/2021 2:14 PM FINDINGS: MAMMOGRAPHY: Breast composition: Mass: Questionable 0.4 cm mass in the middle third of the right lower inner quadrant Architectural distortion: None. Calcifications: No suspicious calcifications. Asymmetric density: None. Skin thickening: None. Axillary adenopathy: None. IMPRESSION: Patient to be recalled for spot compression views of the right breast in the CC and MLO projections, a full 90 degree lateral view, and possible right breast ultrasound for further evaluation of a right breast mass. ASSESSMENT: BI-RADS Category 0: Incomplete- Need Additional Imaging Evaluation and/or Prior Mammograms for Comparison.
== END 2023-09-24 23:59 | disposition home or self-care (01) ==
LOC: RAD 14:00
PROVIDERS: PCP Family Medicine; Visit Provider Family Medicine
DX: Z12.31 Encounter for screening mammogram for malignant neoplasm of breast (principal)
CPT/HCPCS: 77063; 77067

== ENCOUNTER 2023-10-06 13:51 | Outpatient (CLI) | payer MEDICARE, BC, SELFPAY ==
--- NOTE | 2023-10-06 13:54 | MM_ITS ---
PROCEDURE INFORMATION: Exam: MG Right Diagnostic Breast Tomosynthesis Exam date and time: 10/06/2023 1:44 PM Age: 78 years old Clinical indication: Patient recalled on the basis of a screening mammogram for further evaluation; Right breast; mass TECHNIQUE: Imaging protocol: Right Diagnostic tomosynthesis and 2D mammography including computer-aided detection (CAD) when performed. Unilateral or bilateral exam. COMPARISON: 1. MG MM DIG SCREENING MAMM BI W/CAD 09/24/2023 1:53 PM 2. MG MM DIG SCREENING MAMM BI W/CAD 09/20/2022 8:04 AM FINDINGS: MAMMOGRAPHY: Breast composition: There are scattered areas of fibroglandular density (based on the most recent screening mammogram report). Breast mammogram findings: Digital diagnostic spot compression views of the right breast and 90 degree lateral view of the right breast demonstrate normal overlapping fibroglandular structures without persistent mass or asymmetry identified. IMPRESSION: No mammographic evidence of malignancy. Annual bilateral mammographic screening is recommended unless otherwise clinically indicated. ASSESSMENT: BI-RADS Category 1: Negative
== END 2023-10-06 23:59 | disposition home or self-care (01) ==
LOC: RAD 13:51
PROVIDERS: PCP Family Medicine; Visit Provider Family Medicine
DX: R92.8 Other abnormal and inconclusive findings on diagnostic imaging of breast (principal); N63.14 Unspecified lump in the right breast, lower inner quadrant
CPT/HCPCS: 77061; 77065; G0279

== ENCOUNTER 2023-10-09 08:55 | Outpatient (CLI) | payer MEDICARE, BC, SELFPAY ==
--- NOTE | 2023-10-09 08:58 | US_ITS ---
PROCEDURE INFORMATION: Exam: US Right Breast, Complete Exam date and time: 10/09/2023 8:50 AM Age: 78 years old Clinical indication: Patient recalled for further evaluation of a questionable right breast mass. Additional diagnostic mammographic views of the right breast dated 10/06/2023 did not demonstrate any persistent mass lesion TECHNIQUE: Imaging protocol: Complete ultrasound of all four quadrants of the right breast and the retroareolar regions, including ultrasound of the axilla when performed. COMPARISON: US BREAST RT COMPLETE 10/09/2023 8:50 AM FINDINGS: ULTRASOUND: Breast ultrasound findings: Sonographic images of the right breast including the retroareolar region, all 4 quadrants and the axilla do not demonstrate any solid masses. 0.5 cm cyst in the 5 o'clock axis 4 cm from the nipple. No architectural distortion or acoustical shadowing. No skin thickening or axillary adenopathy. IMPRESSION: No sonographic evidence of malignancy. Annual mammographic screening is recommended unless otherwise clinically indicated. ASSESSMENT: BI-RADS Category 2: Benign.
== END 2023-10-09 23:59 | disposition home or self-care (01) ==
LOC: RAD 08:55
PROVIDERS: PCP Family Medicine; Visit Provider Family Medicine
DX: R92.8 Other abnormal and inconclusive findings on diagnostic imaging of breast (principal); N63.14 Unspecified lump in the right breast, lower inner quadrant
CPT/HCPCS: 76641

== ENCOUNTER 2023-10-30 11:48 | Outpatient (CLI) | payer MEDICARE, BC, SELFPAY ==
--- NOTE | 2023-10-30 11:55 | XR_ITS ---
FINAL REPORT CLINICAL HISTORY: s/p knee surgery COMPARISON: None FINDINGS: Four views of the right knee reveal a total knee arthroplasty. The bony alignment is normal. There is no evidence of joint effusion. No localized soft tissue abnormality is identified. IMPRESSION: No acute abnormality identified. Right total knee arthroplasty is now present. Reviewed, Interpreted and Dictated by Chad Quiroz III, MD Transcribed by Danielle Crespo Authenticated and [facility]
== END 2023-10-30 23:59 | disposition home or self-care (01) ==
LOC: RAD 11:52
PROVIDERS: PCP Family Medicine; Visit Provider Orthopaedic Surgery
DX: M17.11 Unilateral primary osteoarthritis, right knee (principal)
CPT/HCPCS: 73562

== ENCOUNTER 2023-11-06 10:00 | Outpatient (RCR) | payer MEDICARE, BC, SELFPAY ==
--- NOTE | 2023-09-08 11:32 | HMH.RHREAS ---
Rehab Reassessment Rehab OP Re-assessment Start: 08/07/23 10:24 Freq: Status: Active Protocol: Document 09/08/23 09:59 [email or web address] (Rec: 09/08/23 11:32 KAYA [id number]) E-signed By Alonzo Dasilva, PT Lower Extremity Functional Index Activities Today, do you or would you have any difficulty at all with: a.Any of your usual work, housework or Moderate difficulty school activities b. Your usual hobbies, recreational or No difficulty sporting activities c. Getting into or out of the bath A little bit of difficulty d. Walking between rooms No difficulty e. Putting on your shoes or socks No difficulty f. Squatting Quite a bit of difficulty g. Lifting an object, like a bag of Moderate difficulty groceries from the floor h. Performing light activities around A little bit of difficulty your home i. Performing heavy activities around Moderate difficulty your home j. Getting into or out of a car A little bit of difficulty k. Walking 2 blocks Moderate difficulty l. Walking a mile Quite a bit of difficulty m. Going up or down 10 stairs (about 1 Quite a bit of difficulty flight of stairs) n. Standing for 1 hour Quite a bit of difficulty o. Sitting for 1 hour A little bit of difficulty p. Running on even ground Extreme difficulty or unable to perform activity q. Running on uneven ground Extreme difficulty or unable to perform activity r. Making sharp turns while running fast Extreme difficulty or unable to perform activity s. Hopping Extreme difficulty or unable to perform activity t. Rolling over in bed Moderate difficulty LEFI Score Lower Extremity Functional Index Score 38 Rehab Re-assessment Subjective Subjective Pt reports some intermittent episodes over the last week ' where I've had a low grade fever and I feel just wiped out. The knee (right) is warm, and stiff on those days too.' Pt reports 3/10 right knee pain this am on VAS, 'feels better today than it did yesterday.' Objective Objective Notes AROM: RIGHT KNEE 5-118 PROM: RIGHT KNEE 0-121 MMT: RIGHT KNEE FLX 4/5, R KNEE EXT 4+/5, R HIP FLX 4/5, R HIP ABD 4--4/5, R HIP ADD 4/ 5 TTP: RIGHT KNEE MEDIAL JT LINE 3/4, LATERAL JT LINE 1/4 GAIT: mildly antalgic on level terrain w/SC LEF 38 VS 18 ON I EVAL Assessment Progress Assessment Progressing as Expected Assessment Notes SIGNIFICANTLY IMPROVED ROM, STRENGTH, GAIT, LEF INDEX, HOWEVER, STILL NEED TO MAKE FUNCTIONAL PROGRESS W/GAIT Patient goals met STG'S 06/25 LTG'S 04/27 Goals Not Met STG'S 05/26 LTG'S 09/27 Plan Plan Pt to continue w/skilled P.T. to make further improvements in ROM, strength, TTP, and gait to allow for optimal function Frequency of Therapy 1-2x/wk Duration of therapy 4-6wks Time and Billing Re-Eval Time 12 Re-Eval Billing Units 1 PHYSICIAN CERTIFICATION: I certify the specified therapy services for Mimi Arellano are required, authorized, and reviewed every 30 days.
--- NOTE | 2023-10-06 11:02 | HMH.RHREAS ---
Rehab Reassessment Rehab OP Re-assessment Start: 08/07/23 10:24 Freq: Status: Active Protocol: Document 10/06/23 10:14 KAYA (Rec: 10/06/23 11:02 KAYA [id number]) E-signed By Alonzo Dasilva, PT Lower Extremity Functional Index Activities Today, do you or would you have any difficulty at all with: a.Any of your usual work, housework or A little bit of difficulty school activities b. Your usual hobbies, recreational or A little bit of difficulty sporting activities c. Getting into or out of the bath No difficulty d. Walking between rooms No difficulty e. Putting on your shoes or socks No difficulty f. Squatting Quite a bit of difficulty g. Lifting an object, like a bag of No difficulty groceries from the floor h. Performing light activities around No difficulty your home i. Performing heavy activities around Moderate difficulty your home j. Getting into or out of a car No difficulty k. Walking 2 blocks A little bit of difficulty l. Walking a mile Moderate difficulty m. Going up or down 10 stairs (about 1 Moderate difficulty flight of stairs) n. Standing for 1 hour Moderate difficulty o. Sitting for 1 hour No difficulty p. Running on even ground Quite a bit of difficulty q. Running on uneven ground Quite a bit of difficulty r. Making sharp turns while running fast Extreme difficulty or unable to perform activity s. Hopping A little bit of difficulty t. Rolling over in bed No difficulty LEFI Score Lower Extremity Functional Index Score 55 Rehab Re-assessment Subjective Subjective Pt reports 2/10 right knee pain on VAS at it's worst, and feels 85% better overall since I eval Objective Objective Notes AROM: RIGHT KNEE 0-121 PROM: RIGHT KNEE 0-124 MMT: RIGHT KNEE FLX 4-4+/5, R KNEE EXT 4+/5, R HIP FLX 4/5, R HIP ABD 4/5, R HIP ADD 4+-5/ 5 TTP: RIGHT KNEE MEDIAL JT LINE 0-1/4, LATERAL JT LINE 0-1/4 GAIT: mildly antalgic on level terrain w/SC LEF 55 VS 18 ON I EVAL Assessment Progress Assessment Progressing as Expected Assessment Notes SIGNIFICANTLY IMPROVED ROM, STRENGTH, GAIT, LEF INDEX Patient goals met STG'S 10/26 LTG'S 10/28 Goals Not Met LTG'S 03/30 Plan Plan Pt to continue w/skilled P.T. to make further improvements in ROM, strength, TTP, and gait to allow for optimal function Frequency of Therapy 1-2x/wk Duration of therapy 2-3wks Time and Billing Re-Eval Time 12 Re-Eval Billing Units 1 PHYSICIAN CERTIFICATION: I certify the specified therapy services for Mimi Arellano are required, authorized, and reviewed every 30 days.
== END 2023-11-06 23:59 | disposition home or self-care (01) ==
LOC: PT 10:00
PROVIDERS: Visit Provider Orthopaedic Surgery
DX: M25.561 Pain in right knee (principal)
CPT/HCPCS: 97010; 97014; 97016; 97110; 97140; 97163; 97164; 97530; G0283

== ENCOUNTER 2024-01-05 14:06 | Outpatient (CLI) | payer MEDICARE, BC, SELFPAY ==
--- NOTE | 2024-01-05 14:07 | MR_ITS ---
FINAL REPORT CLINICAL HISTORY: LBP COMPARISON: None FINDINGS: Multiplanar MR imaging of the lumbar spine was performed without contrast. On the sagittal T2-weighted images, there is abnormal decreased signal at the L2-3 through L5-S1 disc levels. The vertebrae are of normal height. There is grade 1 spondylolisthesis of L4 on L5. T12-L1: There is no significant canal stenosis or neuroforaminal narrowing. L1-2: There is no significant canal stenosis or neural foraminal narrowing. L2-3: There is no significant canal stenosis or neural foraminal narrowing. L3-4: Mild diffuse disc bulge. Moderate to high-grade right and moderate left neuroforaminal narrowing. L4-5: Mild diffuse disc bulge. Bilateral facet hypertrophy. Moderate to high-grade bilateral neuroforaminal narrowing. L5-S1: There is no significant canal stenosis or neural foraminal narrowing. IMPRESSION: Spondylolisthesis of L4 on L5 with moderate to high-grade bilateral neuroforaminal narrowing. Diffuse disc bulge at L3-4 with moderate to high-grade right neuroforaminal narrowing. Reviewed, Interpreted and Dictated by Sam Arenas MD Transcribed by Dalia Sterling Authenticated and . [facility]
== END 2024-01-05 23:59 | disposition home or self-care (01) ==
LOC: RAD 14:07
PROVIDERS: PCP Family Medicine; Visit Provider Orthopaedic Surgery
DX: M54.16 Radiculopathy, lumbar region (principal)
CPT/HCPCS: 72148

== ENCOUNTER 2024-03-18 10:00 | Outpatient (RCR) | payer MEDICARE, BC, SELFPAY | END 2024-03-18 23:59 | disposition home or self-care (01) | LOC: PT 10:00 | PROVIDERS: PCP Family Medicine; Visit Provider Physician Assistant Medical | DX: M54.16 Radiculopathy, lumbar region (principal); M54.50 Low back pain, unspecified | CPT/HCPCS: 97110; 97140; 97163 ==

== ENCOUNTER 2024-04-15 10:00 | Outpatient (RCR) | payer MEDICARE, BC, SELFPAY | END 2024-04-15 23:59 | disposition home or self-care (01) | LOC: PT 10:00 | PROVIDERS: PCP Family Medicine; Visit Provider Physician Assistant Medical | DX: M54.50 Low back pain, unspecified (principal); M54.16 Radiculopathy, lumbar region | CPT/HCPCS: 97110; 97140 ==

== ENCOUNTER 2024-04-19 10:53 | Outpatient (RCR) | payer MEDICARE, BC, SELFPAY | END 2024-04-19 23:59 | disposition home or self-care (01) | LOC: PT 10:53 | PROVIDERS: PCP Family Medicine; Visit Provider Physician Assistant Medical | DX: M54.16 Radiculopathy, lumbar region (principal); M54.50 Low back pain, unspecified | CPT/HCPCS: 97110 ==

== ENCOUNTER 2024-07-30 19:36 | Emergency (ER) | payer SELFPAY ==
--- OUTSIDE RECORDS SUMMARY | 2024-06-14 08:30 | XMS_ITS | Encounter Summary ---
Author Organization Healthcare Address [address] [place] [address] Care Team Providers Care Dimensional Inspector Name Role Phone Deion Smith MD Primary Care Provider [phone] Reason for Visit * Reason Comments Follow-up Encounter Details Date Type Department Care Team (Late st Contact Info) Description 06/14/2024 8:30 AM EDT Office Visit Interventional Pain Medicine [address] [place] [phone] Porter Valdez MD [address] [place] [address] Spinal stenosis, lumbar region with neurogenic claudication (Primary Dx) Social History Tobacco Use Types Packs/Day Years Used Date Smoking Tobacco: Never Passive Smoke Exposure: Never Smokeless Tobacco: Never Alcohol Use Standard Drinks/Week Comments Yes 1 (1 standard drink = 0.6 oz pure alcohol) Occasional drinker, may average 2-3 drinks /month Comments No Sex and Gender Information Value Date Recorded Sex Assigned at Female 02/14/2024 9:26 AM EST Legal Sex Female 7:06 PM EDT Gender Identity Female 02/14/2024 9:26 AM EST Sexual Orientation Straight 02/14/2024 9: 26 AM EST documented as of this encounter Last Filed Vital Signs Vital Sign Reading Time Taken Comments Blood Pressure 131/74 06/14/2024 8:27 AM EDT Pulse 76 06/14/2024 8:27 AM EDT Temperature 36.7 C (98 F) 06/14/2024 8:27 AM EDT Respiratory Rate 18 06/14/2024 8:27 AM EDT Oxygen Saturation 95% 06/14/2024 8:27 AM EDT Inhaled Oxygen Concentration - - Weight 81.3 kg (179 lb 3.7 oz) 06/14/2024 8:27 A M EDT Height 172.7 cm (5' 8 ) 06/14/2024 8:27 AM EDT Body Mass Index 27.25 06/14/2024 8:27 AM EDT documented in this encounter Miscellaneous Notes * Progress Notes - Steven Berg MD - 06/14/2024 8:30 AM EDT Images from the original note were not included. Interventional Pain Medicine New Patient Note Subjective: Interval Hx: Ms. Arellano presents today for follow up after 05/18/24 L5/S1 LESI. Today, she states that she has been doing very well after her injection. States that she has been getting greater than 90% relief in both her low back and radicular pain. States that she has been more active, walking for greater distances, and doing more things around the house. Very pleased with her injection. States that she occasionally has some ???twinges?? on the lateral aspect of her uppercalf on the right leg but this is very infrequent and not enough to do anything about at this moment. History of Present Illness: Mimi Arellano is a 79 y.o. female with PMHx of Afib (Eliquis). Patient referred by No ref. provider found for evaluation of low back pain Presents with: Site: low back Onset: years, worsening Severity: 07/27 Descriptors: dull, aching, sharp, burning Aggravating Factors: sitting to standing, prolonged walking Relieving Factors: rest Associated Symptoms: RLE pain below knee to calf, denies weakness or saddle anesthesia CAYLA: 12 Current Disabilities: limitations in ADLs/IADLs Functional Goals of Treatment: improvement in function Current Medication: Current Pain Medications DULoxetine (Cymbalta) [address] capsule Take 1 capsule (30 mg) by mouth in the morning and 1 capsule(30 mg) before bedtime. Previous Medication: Tylenol Previous Conservative Treatment: conservative care > 6 weeks within the last 6 months heat ice medication trials modified activities rest physical therapy completed > 6 weeks in the last 6 months at [facility] Feb -April 2024 PT made pain worse Previous Interventions/Consults: [facility] 05/18/24 L5/S1 LESI Other Medical History Work Status/Pain related to work injury: No reports that she has never smoked. She has never been exposed to tobacco smoke. She has never used smokeless tobacco. Anticoagulation: Yes Review of Systems: CONSTITUTIONAL: denies fevers, chills HEENT: denies swallowing difficulties, sore throat CARDIOVASCULAR: denies chest pain, palpitations, syncope RESPIRATORY: denies shortness of breath, cough, wheezing GI: denies change in bowel habits, nausea, vomiting : denies change in bladder function, frequency, dysuria SKIN: denies rash, skin changes MSK: Per HPI NEURO: Per HPI PSYCH: Per HPI General Physical Exam: Constitutional Appears well-developed and well-nourished Head Normocephalic and atraumatic Neck Neck supple Cardiovascular Minimal to no peripheral edema Pulmonary/Chest Effort normal, no shortness of breath noted Skin Skin is warm and dry on exposed skin Neurologic & Musculoskeletal Exam Lower Extremity Region Exam Left (+/-) Right (+/-) Comments Lumbar Musculature Tender w/ palpation - - Lumbar Facet Pain w/ extension - - Lower Extremity Slump - + Lower Extremity SLR - - Sensation Left Right Comments L2: Proximal Anterior Thigh Normal Normal L3: Mid Anterior Thigh Normal Normal L4: Medial leg/foot, great toe (Saphenous n.) Normal Normal L5: Dorsum of mid foot Normal AbNormal S1: Lateral leg/foot, little toe, back of leg (Sural n.) Normal AbNormal Motor Strength Left Right Comments L2: Hip flexion (iliopsoas) 5/5 5/5 L3: Knee extension (quad) / 5/5 L4: Ankle DF (TA) / 5 L5: Great Toe DF (EHL) / 5/ S1: Ankle PF, Foot Eversion (Peroneal longus/brevis) / 5/ S2: Great toe flexion (FHL), Knee Flexion / 5/5 Reflexes Left Right L4: Patellar 2/4 2/4 S1: Achilles 2/4 2/4 Clonus None None Region Exam Left (+/-) Right (+/-) Comments Sacroiliac Joint Reyna's Finger (PSIS) + - Tenderness to palpation - - CLAUDIA + - Gaenslen's - - Compression - - Distraction - - Imaging/Studies: Images of the following studies have been personally reviewed and my independent interpretation reveals as written: 03/01/24 Xray L Spine - multi-level degenerative changes anf facet hypertrophy - Grade 1 anterolisthesis L4-L5. 01/05/24 MRI L Spine - Grade I spondylolisthesis of L4-5, annular tearing resulting in mild to moderate central canal stenosis - L5:S1 annular tearing resulting in mild central canal stenosis Labs: Lab Results Component Value Date PLT 380 04/23/2024 No results found for: INR , PROTIME No results found for: HGBA1C Assessment & Plan: Mimi Arellano is a 79 y.o. female #Lumbar spinal stenosis with neurogenic claudication, Chronic stable # Lumbar radiculopathy -symptoms in the bilateral lower extremities with + shopping cart sign -s/p 05/18/24 L5/S1 LESI with ongoing >90% relief -Recommended to continue with conservative management including home exercise program, heat/ice, topical NSAIDs, etc. -can repeat [id number] PRN #Right peroneal neuropathy -may have a component of peroneal entrapment however the symptoms are not significant at this time -could consider evaluation with ultrasound versus EMG/NCS in the future if needed #Chronic Anticoagulation #Atrial Fibrillation -Patient will need permission from prescribing physician to hold Apixaban x3 days prior to any neuraxial procedure due to increased risk of bleeding/hematoma, per ULYSSES guidelines - Follow up in 3 months Cosigned by Porter Valdez MD at 06/14/2024 12:52 PM EDT Associated attestation - Porter Valdez MD - 06/14/2024 12:52 PM EDT I saw and evaluated the patient with the resident/fellow. I discussed the case with the resident/fellow and agree with the findings and plan as documented. documented in this encounter Plan of Treatment Upcoming Encounters Date Type Department Care Team (Late st Contact Info) Description 09/13/2024 9:30 AM EDT Office Visit Interventional Pain Medicine [address] [place] [address] Porter Valdez MD [address] [place] [address] 11/15/2024 1:00 PM EDT Office Visit Medical Office Building [facility] [address] [facility], [address] [place] [address] Davy Ruiz MD [address] [place] [address] documented as of this encounter Visit Diagnoses Diagnosis Spinal stenosis, lumbar region with neurogenic claudication- Primary documented in this encounter Additional Health Concerns Assessment Noted Time A fall risk assessment has been complete d for the patient 06/14/2024 8:26 AM EDT A Body Mass Index follow-up plan has been documented for the patient 06/14/2024 12:53 PM EDT documented as of this encounter Care Teams Dimensional Inspector Relationship Specialty Start Date End Date Deion Smith MD [address] [place] [address] PCP - General 06/30/20 documented as of this encounter
--- OUTSIDE RECORDS SUMMARY | 2024-07-19 12:30 | XMS_ITS | Encounter Summary ---
Author Organization Healthcare Address [address] [place] [address] Care Team Providers Care Learning And Development Assistant Name Role Phone Deion Smith MD Primary Care Provider [phone] Reason for Visit * Reason Comments Follow-up Encounter Details Date Type Department Care Team ([facility] st Contact Info) Description 07/19/2024 12:30 PM EDT Office Visit Medical Office Building [facility] [address], [address] [place] [address] Davy Ruiz MD [address] [place] [address] Spinal stenosis of lumbar region with neurogenic claudication (Primary Dx) [...] Sign Reading Time Taken Comments Blood Pressure 147/84 07/19/2024 12:34 PM EDT Pulse 81 07/19/2024 12:34 PM EDT Temperature - - Respiratory Rate - - Oxygen Saturation 97% 07/19/2024 12:34 PM EDT Inhaled Oxygen Concentration - - Weight 79.9 kg (176 lb 2.4 oz) 07/19/2024 12:34 PM EDT Height 172.7 cm (5' 8 ) 07/19/2024 12:34 PM EDT Body Mass Index 26.78 07/19/2024 12:34 PM EDT documented in this encounter Miscellaneous Notes * Progress Notes - Davy Ruiz MD - 07/19/2024 12:30 PM EDT Outpatient [facility] Note ATTENDING SURGEON: Davy Ruiz MD CHIEF COMPLAINT: LBP, right leg pain Subjective: History of Present Illness: Mimi Arellano is a 78 y.o. female with a history of fibromyalgia presenting today with a complaint of lumbar back pain and radiating right leg pain. 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 She states that the pain she experiences radiates along the lateral aspect. No symptoms on the left. Her surgeon Dr. Bill Holder referred her for lumbar MRI due to her persistent pain. MRI available for review today. She notes she has an increase in pain with sitting and standing for long periods of time. She does feel as though she has some standing/walking intolerance secondary to her symptoms.Says she needs to use a cart at the grocery store. Patient does endorse urinary urgency that variesin frequency. She states that she is unaware of when she is urinating and wears pads. She is here to discuss next steps. Interval history (04/30/2024): Patient returns after participating in PT. She states this has worsened frequency and intensity. States she has a more constant dull pain measuring 2-3/10. She has neweronset bilateral hand numbness/tingling affecting primarily thumb and index fingers. Interval history (07/19/2024): Patient returns after epidural injections. Patient had almost immediate relief of her right leg pain following her injection. She was pain free for about 2 months. She was very happy with her progress even noting she returned to mowing her grass and felt she could do her normal activities without difficulty. Friday morning, she woke up with back and abdominal pain. Patient reports that Friday and this morning, she did not wake up with the abdominal pain, however she still has left low back pain that is quite severe. With leaning forward, she will notice a left anterior thigh pain. Patient is frustrated by her setback and is here to discuss symptoms today. PAST MEDICAL HISTORY Past Medical History: Diagnosis Date Anemia Childhood, 2018 Anxiety Arrhythmia 2018 Bleeding disorder ([facility]) Mar 2016 Deep vein thrombosis ([facility]) Mar 2016 Depression Fibromyalgia, primary 1987? Fractures 195 History of hypercoagulable state Mar 2016 Hypertension 2014 Joint pain Low back pain Migraine 1980s Neck pain 2006 Osteoarthritis 2013 Overactive bladder Overactive bladder Personal history of other mental and behavioral disorders History of depression Personal history of peptic ulcer disease History of peptic ulcer MEDICATIONS Current Outpatient Medications: Ascorbic Acid (vitamin C) 500 MG tablet, , Disp: , Rfl: Calcium Carb-Cholecalciferol (Calcium 1000 + D) 1000-20 MG-MCG tablet, , Disp: , Rfl: cholecalciferol (Vitamin D-3) 50 MCG (2000 UT) tablet, Take 1 tablet (2,000 Units) by mouth 1 (one)time each day., Disp: , Rfl: DULoxetine (Cymbalta) [address] capsule, Take 1 capsule (30 mg) by mouth in the morning and 1 capsule (30 mg) before bedtime., Disp: , Rfl: Eliquis 5 MG tablet, Take 1 tablet (5 mg) by mouth in the morning and 1 tablet (5 mg) in the evening., Disp: , Rfl: Iron-Vitamin C 65-125 MG tablet, , Disp: , Rfl: magnesium oxide (Mag-Ox) 400 mg tablet, 1 tablet (400 mg) daily., Disp: , Rfl: Multiple Vitamin (MULTI VITAMIN DAILY PO), TAKE 1 TABLET DAILY., Disp: , Rfl: Zinc 50 MG tablet, , Disp: , Rfl: ALLERGIES Allergies Allergen Reactions Fish Allergy Nausea Iodinated Contrast Media Rash Penicillins Anxiety, Hives, Rash, Itching, Shortness of breath, Swelling and Unknown - Patient states they do not know rxn details Poison Monica Extract Anaphylaxis, Anxiety, Dermatitis, Hives, Itching, Rash, Shortness of breath and Swelling Ibuprofen Rash and Unknown - Patient states they do not know rxn details Latex Hives, Rash and Itching Cefoxitin Rash Cephalosporins Unknown - Patient states they do not know rxn details Ibuprofen-Acetaminophen Rash Iodine Rash and Unknown - Patient states they do not know rxn details Nsaids Unknown - Patient states they do not know rxn details PAST SURGICAL HISTORY Past Surgical History: Procedure Laterality Date APPENDECTOMY N/A Appendectomy from [facility] EAR SURGERY N/A Ear Surgery from [facility] EPIDURAL BLOCK INJECTION 08/04/2023 FRACTURE SURGERY 07/18/2019 HAND SURGERY N/A Hand Surgery from [facility] HERNIA REPAIR N/A Hernia Repair from [facility] HYSTERECTOMY N/A Hysterectomy from [facility] JOINT REPLACEMENT July 2023 KNEE SURGERY July 2023 ORTHOPEDIC SURGERY 07/18/2019, 08/04/2023 TONSILLECTOMY 1950 TUBAL LIGATION N/A Tubal Ligation from [facility] VAGINA SURGERY N/A Vaginal Surgery from [facility] FAMILY HISTORY Family History Problem Relation Name Age of Onset Cardiac disorder Other Crohn's disease Father Kidney disease Father Down syndrome Brother Nickolas Ariana Cancer Brother Nickolas Ariana Hyperlipidemia Mother Trafalgar Ariana Kidney cancer Mother Trafalgar Ariana Cancer Mother Trafalgar Ariana Depression Mother Trafalgar Ariana Leukemia Brother Leukemia Other Brain cancer Other Breast cancer Other Cancer Maternal Grandmother Lula Zelaya Depression Maternal Grandmother Lula Zelaya Cancer Paternal Grandfather Shahzad Ceasar LucasAriana Cancer Mother's Sister Kayleigh Rosales Cancer Mother's Brother Bertrand Zelaya Osteoporosis Sister Ana Laura Fried Depression Sister Shireen Ryann Hypertension Sister Shireen Ryann Depression Daughter Dariela Galo Developmental delay Brother Shahzad Brooks Ariana III problems Son Idris Priest Eileen Seizures Son Idris Priest Eileen SOCIAL HISTORY Tobacco use: Tobacco Use: Low Risk (07/19/2024) Patient History Smoking Tobacco Use: Never Smokeless Tobacco Use: Never Passive Exposure: Never Alcohol use: Alcohol Use: Not on file REVIEW OF SYSTEMS: CONSTITUTIONAL: denies fevers, chills, weight change HEENT: denies swallowing difficulties, sore throat, change in vision or hearing CARDIOVASCULAR: denies chest pain, palpitations, syncope RESPIRATORY: denies shortness of breath, cough GI: denies change in bowel habits, nausea, vomiting : denies change in bladder function, frequency, dysuria SKIN: denies rash, open wounds or skin changes PSYCH: denies uncontrolled anxiety or depression Objective: Visit Vitals BP (!) 147/84 Pulse 81 Ht 1.727 m (5' 8 ) Wt 79.9 kg (176 lb 2.4 oz) SpO2 97% BMI 26.78 kg/m?? OB Status Hysterectomy Smoking Status Never BSA 1.96 m?? Body mass index is 26.78 kg/m??. General Physical Exam Constitutional Appears well-developed and well-nourished. Eyes Pupils are equal, round, and reactive to light. Neck No tracheal deviation or JVD noted. No previous surgical scars Cardiovascular Minimal to no peripheral edema, intact distal pulses Pulmonary/Chest Effort normal, no shortness of breath Neurological Alert and oriented to person, place, and time Skin Skin is warm and dry Psychiatric Normal mood and affect, behavior and judgment Motor Strength Right Left C5: Shoulder abduction (Deltoid) 06/21 06/21 C5: Elbow flexion (Biceps, Brachialis) 06/21 06/21 C6: Wrist extension (ECRB, ECRL) 06/21 06/21 C7: Elbow extension (Triceps) 06/21 06/21 C8: Finger flexion (Buying Agent Strength) 06/21 06/21 T1: Finger abduction 06/21 06/21 Sensation Right Left Neck normal normal C5: Shoulder normal normal C6: Thumb, radial aspect hand/forearm (Radial Nerve) normal normal C7: Long finger (Median Nerve) normal normal C8: Little finger, ulnar aspect of hand/forearm (Ulnar n.) normal normal T1: Medial forearm/arm normal normal Reflexes Right Left C6: Brachioradialus 2/4 2/4 Hoffmans absent absent Motor Strength Right Left L2: Hip flexion (Iliopsoas) 06/21 06/21 L3: Knee extension (Quad) 06/21 06/21 L4: Ankle DF (TA) 06/21 06/21 L5: Great Toe DF (EHL) 06/21 06/21 S1: Ankle Pf, Foot Eversion (Peroneal longus/brevis) 06/21 06/21 S2: Great toe flexion (FHL), Knee flexion 06/21 06/21 Sensation Right Left L2: Proximal anterior thigh normal normal L3: Mid anterior thigh normal normal L4: Medial leg/foot, great toe (Saphenous n.) normal normal L5: Dorsum of mid foot normal normal S1: Lateral leg/foot, little toe, Back of leg (Sural n.) normal normal IMAGING: Imaging of the lumbar spine including x-rays and MRI were reviewed and demonstrate spondylosis withGrade I spondylolisthesis of L4-5. There is a moderate amount of central and lateral recess stenosis at this level and more moderate to severe foraminal stenosis. Assessment and Plan: Mimi Arellano is a 79 y.o. female with L4-5 spondylolisthesis and stenosis who is presenting forfollow up. She underwent her epidural injection with significant improvement in her symptoms. She is quite pleased with this and returned to her activities that she previously enjoyed. Unfortunately,she woke up 2 days ago with back pain as well as abdominal pain that was quite severe. Since then she notices that this has improved slightly and she wakes up with less pain but she now still has predominantly left-sided low back pain that is quite bothersome. She also will get occasional radiationto her left anterior thigh with bending forward. Sure as to what necessarily cause the set back. Her radicular symptoms do not seem to be necessarily concordant with her level of pathology, however that is not to say they are not stemming from there. She is going to inquire with the interventional pain team about having a another injection set up when able to do so. Is reassuring that symptoms have slightly improved over the last 2 days and we will continue to trend this. I did discuss the consideration for a steroid taper should they persist or progress. We otherwise will plan to see her back in 3-4 months for an interval check in but we are happy to see her sooner should issues arise or symptoms progress. documented in this encounter Plan of Treatment Upcoming Encounters Date Type Department Care Team (Late st Contact Info) Description 09/13/2024 9:30 AM EDT Office Visit Interventional Pain Medicine [address] [place] [phone] Porter Valdez MD [address] [place] [address] 11/15/2024 1:00 PM EDT Office Visit Medical Office Building [facility] [address] [facility], [address] [place] [address] Davy Ruiz MD [address] [facility] [address] [place] [address] documented as of this encounter Visit Diagnoses Diagnosis Spinal stenosis of lumbar region with neurogenic claudication- Primary documented in this encounter Additional Health Concerns Assessment Noted Time A fall risk assessment has been complete d for the patient 07/19/2024 12:37 PM EDT A Body Mass Index follow-up plan has been documented for the patient 07/19/2024 1:36 PM EDT documented as of this encounter Care Teams Learning And Development Assistant Relationship Specialty Start Date End Date Deion Smith MD [address] [place] [id number] PCP - General 06/30/20 documented as of this encounter
[2024-07-30 19:37] VITALS: BP 144/78; PULSE 92; RESP 20; TEMP 36.8; O2SAT 98; BMI 26.3
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
--- OUTSIDE RECORDS SUMMARY | 2024-07-30 19:50 | XMS_ITS | Encounter Summary ---
Author Organization Healthcare Address [address] [place] [address] Care Team Providers Care Eligibility Services Representative Name Role Phone Deion Smith MD Primary Care Provider [phone] Encounter Details Date Type Department Care Team (Latest Contact Info) Description 07/19/2024 Travel Social History Tobacco Use Types Packs/Day Years [...] AM EST documented as of this encounter Plan of Treatment Upcoming Encounters Date Type Department Care Team (Late st Contact Info) Description 09/13/2024 9:30 AM EDT Office Visit Interventional Pain Medicine [address] [place] [phone] Porter Valdez MD [address] [place] [address] 11/15/2024 1:00 PM EDT Office Visit Medical Office Building [facility] [address] [facility], [address] [place] [address] Davy Ruiz MD [address] [facility] [address] [place] [id number] documented as of this encounter Visit Diagnoses Not on filedocumented in this encounter Additional Health Concerns Assessment Noted Time A fall risk assessment has been complete d for the patient 07/19/2024 12:37 PM EDT A Body Mass Index follow-up plan has been documented for the patient 07/19/2024 1:36 PM EDT documented as of this encounter Care Teams Eligibility Services Representative Relationship Specialty Start Date End Date Deion Smith MD [address] [place] [address] PCP - General 06/30/20 documented as of this encounter
--- OUTSIDE RECORDS SUMMARY | 2024-07-30 19:50 | XMS_ITS | Encounter Summary ---
Author Organization Healthcare Address [address] [place] [place] [address] Care Team Providers Care Stencil Maker Name Role Phone Deion Smith MD Primary Care Provider [phone] Encounter Details Date Type Department Care Team (Latest Contact Info) Description 07/12/2024 Travel Social History Tobacco Use Types Packs/Day [...] Medicine [address] [place] [phone] Porter Valdez MD [address] [place] [address] 11/15/2024 1:00 PM EDT Office Visit Medical Office Building [facility] [address] [facility], [address] [place] [address] Davy Ruiz MD [address] [facility] [address] [place] [phone] documented as of this encounter Visit Diagnoses Not on filedocumented in this encounter Additional Health Concerns Assessment Noted Time A fall risk assessment has been complete d for the patient 06/14/2024 8:26 AM EDT A Body Mass Index follow-up plan has been documented for the patient 06/14/2024 12:53 PM EDT documented as of this encounter Care Teams Stencil Maker Relationship Specialty Start Date End Date Deion Smith MD [address] [place] [address] PCP - General 06/30/20 documented as of this encounter
--- OUTSIDE RECORDS SUMMARY | 2024-07-30 19:50 | XMS_ITS | Clinical Summary ---
Author Organization [facility] Address [address] [place] [address] Care Team Providers Care Collar Padder Blindstitch Name Role Phone Deion Smith MD Primary Care Provider [phone] Allergies Active Allergy Reactions Criticality Noted Date Comments Cefoxitin Rash Low 12/26/2021 Cephalosporins Unknown - Patient st ates they do not know rxn details Low 02/03/2018 Fish Allergy Nausea High 12/26/2021 Ibuprofen Rash,Unknown - Patie nt states they do not know rxn details Medium 12/26/2021 Ibuprofen-Acetaminophen Rash Low 09/19/2021 Iodinated Contrast Media Rash High 12/26/2021 Iodine Rash,Unknown - Patie nt states they do not know rxn details Low 04/30/2024 Latex Hives,Rash,Itching Medium 09/19/2021 Nsaids Unknown - Patient st ates they do not know rxn details Low 04/30/2024 Penicillins Anxiety,Hives,Rash,I tching,S hortness of breath,Swelling,Unknown - Patient states they do not know rxn details High 02/03/2018 Poison Monica Extract Anaphylaxis,Anxiety, Dermatit is,Hives,Itching,Rash,Shortn ess of breath,Swelling High 12/26/2021 Medications Multiple Vitamin (MULTI VITAMIN DAILY PO) TAKE 1 TABLET DAILY. 02/03/2018 Active Eliquis 5 MG tablet Take 1 tablet (5 mg) by mouth in the morning and 1 tablet (5 mg) in the evening. 01/28/2018 Active cholecalciferol (Vitamin D-3) 50 MCG (2000 UT) tablet Take 1 tablet (2,000 Units) by mouth 1 (one) time each day. Active DULoxetine (Cymbalta) [address] capsule Take 1 capsule (30 mg) by mouth in the morning and 1 capsule (30 mg) before bedtime. 11/10/2023 Active Ascorbic Acid (vitamin C) 500 MG tablet Active Calcium Carb-Cholecalci ferol (Calcium 1000 + D) 1000-20 MG-MCG tablet Active Iron-Vitamin C 65-125 MG tablet Active Zinc 50 MG tablet Active magnesium oxide (Mag-Ox) 400 mg tablet 1 tablet (400 mg) daily. Active Active Problems No known active problems Encounters Date Type Department Care Team Description 07/19/2024 12:30 PM EDT Office Visit Medical Office Building [facility] [address] [facility], [address] [place] [address] Davy Ruiz MD Spinal stenosis of lumbar region with neurogenic claudication (Primary Dx) 07/19/2024 Travel 07/12/2024 Travel 06/14/2024 8:30 AM EDT Office Visit Interventional Pain Medicine [address] [place] [address] Porter Valdez MD Spinal stenosis, lumbar region with neurogenic claudication (Primary Dx) 06/14/2024 Travel 05/19/2024 Telephone [facility] Interventional Pain Medicine [address] [place] [address] Eusebia Gallagher LPN 05/19/2024 Travel 05/18/2024 11:00 AM EDT Procedure Visit Interventional Pain Medicine [address] [place] [address] Porter Valdez MD Spinal stenosis of lumbar region with radiculopathy 05/18/2024 Orders Only External Location [address] [place] [address] Provider, External 05/18/2024 Travel 05/11/2024 Travel 05/10/2024 10:00 AM EDT Office Visit Interventional Pain Medicine [address] [place] [address] Porter Valdez MD Spinal stenosis of lumbar region with radiculopathy (Primary Dx) 05/10/2024 Travel 05/03/2024 Travel 04/30/2024 1:00 PM EDT Office Visit Medical Office Building [facility] [address] [facility], [address] [place] [address] Davy Ruiz MD Lumbar pain (Primary Dx); Spinal stenosis of lumbar region with radiculopathy 04/30/2024 Travel from Last 3 Months Family History Medical History Relation Name Comments Cancer [address] Down syndrome [address] Leukemia Brother 2 Developmental delay Brother 3 Shahzad Brooks Ariana II I Depression Daughter Dariela Galo Crohn's disease Father Kidney disease Father Cancer Maternal Grandmother Lula Zelaya Depression Maternal Grandmother Lula Zelaya Cancer Mother Pond Eddy Ariana Depression Mother [place] Eddy Ariana Hyperlipidemia Mother [place] Ariana Kidney cancer Mother [place] Ariana Cancer Mother's Brother Bertrand Zelaya Cancer Mother's Sister Kayleigh Belchik Cardiac disorder Other 1 Leukemia Other 2 Brain cancer Other 3 Breast cancer Other 4 Cancer Paternal Grandfather Shahzad Mcdonough Ariana Osteoporosis Sister 1 Ana Laura Long Depression Sister 2 Shireen Ryann Hypertension Sister 2 Shireen Ryann problems Son Idris Cem Arellano Seizures Son Idris Priest Eileen Relation Name Status Comments Brother [address] Brother 2 Brother 3 Shahzad Olivaoch III Alive Daughter Dariela Galo Alive Father Maternal Grandmother Lula Zelaya Mother [place] Ariana Mother's Brother Bertrand Zelaya Mother's Sister Ladd Belchik Other 1 Other 2 Other 3 Other 4 Paternal Grandfather Shahzad Mcdonough Ariana Sister 1 Ana Laura Long Sister 2 Shireen Ryann Alive Son Idris Priest Eileen Alive Social History Tobacco Use Types Packs/Day Years [...] Orientation Straight 02/14/2024 9: 26 AM EST Last Filed Vital Signs Vital Sign Reading Time Taken Comments Blood Pressure 147/84 07/19/2024 12:34 PM EDT Pulse 81 07/19/2024 12:34 PM EDT Temperature 36.7 C (98 F) 06/14/2024 8:27 AM EDT Respiratory Rate 18 06/14/2024 8:27 AM EDT Oxygen Saturation 97% 07/19/2024 12:34 PM EDT Inhaled Oxygen Concentration - - Weight 79.9 kg (176 lb 2.4 oz) 07/19/2024 12:34 PM EDT Height 172.7 cm (5' 8 ) 07/19/2024 12:34 PM EDT Body Mass Index 26.78 07/19/2024 12:34 PM EDT Plan of Treatment Upcoming Encounters Date Type Department Care Team (Late st Contact Info) Description 09/13/2024 9:30 AM EDT Office Visit Interventional Pain Medicine [address] [place] [id number] Porter Valdez MD [address] [place] [address] 11/15/2024 1:00 PM EDT Office Visit Medical Office Building [facility] [address] [facility], [address] [place] [address] Davy Ruiz MD [address] [place] [address] Health Maintenance Due Date Last Done Comments [facility]-Bone Density Scan 1945 [facility]-Depression Screening 1945 [facility]-Hepatitis C Screening 1945 [facility]-Infant/Child/Adol SDOH Screenings 1945 [id number] Vaccine (#1) 1951 [facility]- SDOH Screenings 1964 [facility]-Adult SDOH Screenings 1964 [facility]-DTaP,Tdap,and Td Vaccines (1 - Tdap) 1965 [facility]-Pneumococcal Vaccine: 50+ Years (1 of 1 - PCV) 1996 12/01/2017 [facility]-Zoster Vaccines (1 of 2) 1996 [facility]-RSV Vaccine: 60+ Years or (1 - 1-dose 75+ series) 2021 [facility]-Medicare Annual Wellness (AWV) 09/21/2024 09/22/2023, 07/25/2022 [facility]-Influenza Vaccine (Season Ended) 2024 [facility]-Obesity Intervention Completed 025, 06/14/2024, 05/18/2024, Additional history exists HPV Vaccines Aged Out No longer eligi ble based on patient's age to complete this topic [facility]-HIB Vaccines Aged Out No longer e ligible based on patient's age to complete this topic [facility]-Hepatitis A Vaccines Aged Out No longer eligible based on patient's age to complete this topic [facility]-IPV Vaccines Aged Out No longer e ligible based on patient's age to complete this topic [facility]-Rotavirus Vaccines Aged Out No lo nger eligible based on patient's age to complete this topic Procedures Procedure Name Priority Date/Time Associated Diagnosis Comments MI NJX DX/THER SBST INTRLMNR LMBR/SAC W/IMG GDN Routine 05/18/2024 11:00 AM EDT Spinal stenosis of lumbar region with radiculopathy POC ULTRASOUND 05/18/2024 from Last 3 Months Results * MI NJX DX/THER SBST INTRLMNR LMBR/SAC W/IMG GDN (05/18/2024 11:00 AM EDT) Narrative Porter Valdez MD - 05/18/2024 11:00 AM EDT Porter Valdez MD 05/18/2024 11:51 AM Interlaminer Epidural - Lumbar / Sacral Performed by: Porter Valdez MD Authorized by: Porter Valdez MD us Proter Valdez MD IN CLINIC/BEDSIDE ORDERABLES Final Result * POC Imaging (05/18/2024) Anatomical Region Laterality Modality Pelvis Other 05/18/2024 us External Provider IMG POINT OF CARE ULTRASOUND F inal Result from Last 3 Months Insurance MEDICARE [facility] Care Teams Collar Padder Blindstitch Relationship Specialty Start Date End Date Deion Smith MD [address] [place] [address] PCP - General 06/30/20
--- OUTSIDE RECORDS SUMMARY | 2024-07-30 19:50 | XMS_ITS | Encounter Summary ---
Author Organization Healthcare Address [address] [place] [address] Care Team Providers Care Real Estate Agency Licensee Name Role Phone Deion Smith MD Primary Care Provider [phone] Encounter Details Date Type Department Care Team (Late st Contact Info) Description 01/05/2024 Orders Only External Location [address] [place] [address] Bill Holder, DO [address] [place] [address] Social History Tobacco Use Types Packs/Day Years Used Date Smoking Tobacco: Never Alcohol Use Standard Drinks/Week Comments Yes 0 (1 standard drink = 0.6 oz pure alcohol) Alcoholic Drinks/day: Social alcohol use Comments Unknown Sex and Gender Information Value Date Recorded [...] Medicine [address] [place] [address] Porter Valdez MD [address] [place] [address] 11/15/2024 1:00 PM EDT Office Visit Medical Office Building Surgery [facility] [address] [facility], [address] [place] [address] Davy Ruiz MD [address] [facility] [address] [place] [address] documented as of this encounter Procedures Procedure Name Priority Date/Time Associated Diagnosis Comments MR OUTSIDE IMAGES 01/05/2024 3:19 PM EST documented in this encounter Results * MR transfer of outside films (01/05/2024 3:19 PM EST) Anatomical Region Laterality Modality Magnetic Resonan ce 01/05/2024 3:19 PM EST us Bill Holder DO IMG MRI PROCEDURES Final Result documented in this encounter Visit Diagnoses Not on filedocumented in this encounter Care Teams Real Estate Agency Licensee Relationship Specialty Start Date End Date Deion Smith MD [address] [place] [address] PCP - General 06/30/20 documented as of this encounter
--- OUTSIDE RECORDS SUMMARY | 2024-07-30 19:51 | XMS_ITS | Encounter Summary ---
Author Organization Healthcare Address [address] [place] [address] Care Team Providers Care Criminal Investigative Agent Name Role Phone Deion Smith MD Primary Care Provider [phone] Encounter Details Date Type Department Care Team (Late st Contact Info) Description 01/05/2024 Orders Only External Location [address] [place] [address] Bill Holder, DO [address] [place] [address] Social History Tobacco Use Types Packs/Day Years [...] Medicine [address] [place] [address] Porter Valdez MD [address] [place] [address] 11/15/2024 1:00 PM EDT Office Visit Medical Office Building Surgery [facility] [address] [facility], [address] [place] [address] Davy Ruiz MD [address] [facility] [address] [place] [address] documented as of this encounter [...] on filedocumented in this encounter Care Teams Criminal Investigative Agent Relationship Specialty Start Date End Date Deion Smith MD [address] [place] [address] PCP - General 06/30/20 documented as of this encounter
--- OUTSIDE RECORDS SUMMARY | 2024-07-30 19:51 | XMS_ITS | Encounter Summary ---
Author Organization Healthcare Address [address] [place] [address] Care Team Providers Care Tonger Name Role Phone Deion Smith MD Primary Care Provider [phone] Encounter Details Date Type Department Care Team (Latest Contact Info) Description 06/14/2024 Travel Social History Tobacco Use Types Packs/Day [...] Medicine [address] [place] [address] Porter Valdez MD [address] [place] [address] 11/15/2024 1:00 PM EDT Office Visit Medical Office Building Surgery [facility] [address] [facility], [address] [place] [address] Davy Ruiz MD [address] [facility] [address] [place] [phone] documented as of this encounter Visit Diagnoses Not on filedocumented in this encounter Additional Health Concerns Assessment Noted Time A fall risk assessment has been complete d for the patient 06/14/2024 8:26 AM EDT A Body Mass Index follow-up plan has been documented for the patient 06/14/2024 12:53 PM EDT documented as of this encounter Care Teams Tonger Relationship Specialty Start Date End Date Deion Smith MD [address] [place] [address] PCP - General 06/30/20 documented as of this encounter
[2024-07-30 19:52] VITALS: BP 146/82
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
--- NOTE | 2024-07-30 19:58 | HMH.ITSTN ---
pt states she is allergic to contrast, i notified ER & they are going to pre-medicate her & call us when she is ready for scan.
[2024-07-30 20:00] VITALS: BP 139/82; PULSE 82; RESP 13; O2SAT 93
[2024-07-30] MEDS: ONDANSETRON 4MG/2ML VIAL 4 MG IV (20:06)
[2024-07-30] MEDS: 0.9 % SODIUM CHLORIDE 1000ML 1,000 ML 999 ML IV (20:06)
[2024-07-30] MEDS: MORPHINE 2MG/ML SYRINGE 2 MG IV (20:07)
[2024-07-30] MEDS: DEXAMETHASONE 4MG/ML 5ML MDV 10 MG IV (20:07)
[2024-07-30] MEDS: diphenhydrAMINE 50MG/ML VIAL 25 MG IV (20:08)
[2024-07-30] MEDS: 0.9 % SODIUM CHLORIDE 50 ML VIAL 80 ML IV (20:40)
[2024-07-30] MEDS: IOPAMIDOL-370 (76%);100ML BOTTLE 160 ML IV (20:40)
[2024-07-30] MEDS: SODIUM CHLORIDE 0.9% 10ML SYR (RAD ONLY) 10 ML IV (20:40)
[2024-07-30 21:13] VITALS: BP 178/91; PULSE 82; RESP 12; O2SAT 96
[2024-07-30 21:25] LABS: Basophils % 0.4 % (0.1-2.0); Eosinophils # 0.1 Kmm3 (0.0-0.4); Hematocrit 38.3 % (37.0-47.0); Hemoglobin 12.3 g/dL (12.2-16.2); Immature Granulocytes # 0.04 10^3uL; Immature Granulocytes % 0.4 %; Lymphocytes # 1.1 K/mm3 (0.7-4.5); Lymphocytes % 11.7 % (10-50); Mean Corpuscular HGB Conc 32.1 g/dL (31.8-35.4); Mean Corpuscular Hemoglobin 28.4 pg (27.0-31.2); Mean Corpuscular Volume 88.5 fl (81-99); Monocytes # 0.5 K/mm3 (0.1-1.0); Monocytes % 5.4 % (1.7-9.3); Neutrophils # 7.3 K/mm3 (1.8-7.8); Neutrophils % 81.1 % (37.0-80.0); Nucleated Red Blood Cells # 0 10^3/uL; Nucleated Red Blood Cells % 0 %; Platelet Count 277 K/mm3 (142-424); Red Blood Count 4.33 M/mm3 (4.20-5.40); Red Cell Distribution Width 13.4 % (11.5-17.5); Red Cell Distribution Width-SD 43.8 fL
[2024-07-30 21:35] LABS: Alanine Aminotransferase 14 U/L (12-78); Albumin Level 3.8 g/dl (3.5-5.0); Albumin/Globulin Ratio 1.5 (1.1-1.8); Alkaline Phosphatase 104 U/L (38-126); Anion Gap 5.4 mEq/L (5-15); Aspartate Amino Transferase 26 U/L (14-36); Bilirubin,Total 0.3 mg/dl (0.2-1.3); Blood Urea Nitrogen 21 mg/dl (7-17); Calcium 10.3 mg/dl (8.4-10.2); Carbon Dioxide 30 mmol/L (22.0-30.0); Chloride 104 mmol/L (98-107); Creatinine Clearance Estimated 57 mL/min (50-200); Estimated Glomerular Filt Rate 81 ml/min (>60); GFR (African American) 98 ML/MIN (>60); Globulin 2.5 g/dL (1.3-3.2); Glucose 114 mg/dl (74-100); Lipase 61 U/L (23-300); Potassium 4.4 mmoL/L (3.5-5.1); Sodium 135 mmol/L (136-145); Total Protein,Serum 6.3 g/dl (6.3-8.2)
[2024-07-30 21:44] LABS: INR 0.94 (0.9-1.1); Prothrombin Time 10.5 seconds (10.1-12.5)
[2024-07-30 21:52] LABS: Procalcitonin 0.048 ng/mL (0.0-2.0)
[2024-07-30 22:00] VITALS: BP 166/92; PULSE 85; RESP 16; O2SAT 95
[2024-07-30 22:03] VITALS: BP 166/92; PULSE 85; RESP 16; TEMP 36.7; O2SAT 93
== END 2024-07-30 22:04 | disposition home or self-care (01) ==
PROVIDERS: Physician Assistant; Emergency Provider Emergency Medicine; PCP Family Medicine
DX: R10.0 Acute abdomen (principal); M25.541 Pain in joints of right hand; M25.542 Pain in joints of left hand; M25.532 Pain in left wrist; M25.531 Pain in right wrist
CPT/HCPCS: 70450; 70496; 70498; 71275; 72125; 72128; 72131; 72192; 73090; 73110; 73130; 74174; 80053; 83690; 84145; 85025; 85610; 96361; 96374; 96375; 99291; J1100; J1200; J2270; J2405; J7030; Q9967

== ENCOUNTER 2024-08-18 12:09 | Day surgery (SDC) | payer MEDICARE, BC, SELFPAY ==
[2024-08-11 14:25] VITALS: BMI 26.3
[2024-08-18 12:56] VITALS: BP 127/68; PULSE 86; RESP 20; TEMP 36.3; O2SAT 97
--- NOTE | 2024-08-18 13:52 | P.PNANES_ITS ---
[facility] Disclaimer: The information contained in this section may have been updated after the patient was seen, as this information can be updated by other users. Medical History (Updated 08/11/24 @ 14:25 by Jasmina Silver RN) Polio Deep vein thrombosis (DVT) History of anemia Fibromyalgia Nocturnal hypoxemia Prolonged grief disorder Overweight Callus of foot Avascular necrosis of left femoral head Grieving BMI 26.0-26.9,adult REM behavioral disorder RLS (restless legs syndrome) CANELO (obstructive sleep apnea) Hypoferremia Cataract Femoral neck fracture Hip fracture Ankle edema, bilateral Onychodystrophy Pain in left ankle and joints of left foot Onychoincurvatum Onychomycosis Callus of foot Surgical History (Updated 08/11/24 @ 14:25 by Jasmina Silver RN) Hx of thumb surgery H/O tubal ligation History of hip surgery History of total right knee replacement History of tonsillectomy H/O: hysterectomy History of appendectomy Status post-operative repair of closed fracture of left hip Family History Other Cancer Coronary artery disease Hypertension Leukemia Social History (Updated 08/11/24 @ 14:25 by Jasmina Silver RN) Smoking Status: Never smoker alcohol intake: current alcohol intake frequency: a few times a month substance use type: denies use current occupational status: retired Travel in the last 8 weeks?: Inside the [place] household members: none housing: house caffeine: Yes Have you lived/traveled outside US in past 30 days?: No Contact w/someone who lives/traveled outside US past 30 days?: No Exposure to someone with infectious disease in past 14 days?: No Do you have a fever (greater than 100.4 F or 38 C)?: No Have you tested positive for COVID-19?: No Exposed to someone with COVID-19 in past 14 days?: No Do you have a sore throat?: No Do you have a cough?: No Do you have any weakness?: No Do you have any diarrhea?: No Are you experiencing any unusual bleeding?: No Do you have any muscle aches/pain?: No Do you have any abdominal pain?: No Are you experiencing loss of taste or smell?: No [facility] Anesthesia Checklist Patient Identification Patient Identification: Arm Band and Verbal (Name & ) Structural Data Admitted From: Home Planned Operative Procedure/s: Colonoscopy Consent for Planned Operative Procedure(s) Verified: Yes Verified Documents: Surgical Consent NPO Status Verified Time NPO: 00:00 Chart Verification Results Verified: ECG Additional verifications Anesthesia Reactions: No Hx Blood Transfusions: No Blood Transfusion Reaction: No Airway Assessment Mallampati Score:: Class II C-Spine Mobility Assessed: Yes TMJ Mobility Assessed: Yes Dentition: Good Dentition Neurological Assessment Level of Consciousness: Awake, Alert and Appropriate Hx Seizures: No Numbness or tingling in extremities: No Anesthesia Plan Anesthesia Risk discussed: Yes Anesthesia Plan: Verified ASA Class: II Anesthesia Type: MAC
--- NOTE | 2024-08-18 14:16 | EXP.HP ---
History of Present Illness *Admission Date: 08/18/24 *Reason for visit:: Personal history of adenomatous colon polyp *History of present illness: Mrs. Barton is a 79-year-old female with a prior history of an adenomatous colon polyp in April 2018 and given 5-year surveillance interval. She is here for surveillance colonoscopy. The examination is deemed medically necessary for surveillance colonoscopy. The patient has been seen, interviewed and examined prior to the procedure by both myself and the anesthesia provider. [facility] Disclaimer: The information contained in this section may have been updated after the patient was seen, as this information can be updated by other users. Medical History (Updated 08/11/24 @ 14:25 by Jasmina Silver RN) Polio Deep vein thrombosis (DVT) History of anemia Fibromyalgia Nocturnal hypoxemia Prolonged grief disorder Overweight Callus of foot Avascular necrosis of left femoral head Grieving BMI 26.0-26.9,adult REM behavioral disorder RLS (restless legs syndrome) CANELO (obstructive sleep apnea) Hypoferremia Cataract Femoral neck fracture Hip fracture Ankle edema, bilateral Onychodystrophy Pain in left ankle and joints of left foot Onychoincurvatum Onychomycosis Callus of foot Surgical History (Updated 08/11/24 @ 14:25 by Jasmina Silver RN) Hx of thumb surgery H/O tubal ligation History of hip surgery History of total right knee replacement History of tonsillectomy H/O: hysterectomy History of appendectomy Status post-operative repair of closed fracture of left hip Family History Other Cancer Coronary artery disease Hypertension Leukemia Social History (Updated 08/11/24 @ 14:25 by Jasmina Silver RN) Smoking Status: Never smoker alcohol intake: current alcohol intake frequency: a few times a month substance use type: denies use current occupational status: retired Travel in the last 8 weeks?: Inside the [place] household members: none housing: house caffeine: Yes Have you lived/traveled outside US in past 30 days?: No Contact w/someone who lives/traveled outside US past 30 days?: No Exposure to someone with infectious disease in past 14 days?: No Do you have a fever (greater than 100.4 F or 38 C)?: No Have you tested positive for COVID-19?: No Exposed to someone with COVID-19 in past 14 days?: No Do you have a sore throat?: No Do you have a cough?: No Do you have any weakness?: No Do you have any diarrhea?: No Are you experiencing any unusual bleeding?: No Do you have any muscle aches/pain?: No Do you have any abdominal pain?: No Are you experiencing loss of taste or smell?: No Other Medical History Have you received the Flu Vaccine for this season: No Have you received the Pneumonia Vaccine: Yes Review of Systems Review of Systems Review of systems (narrative): Negative *Cardiovascular Comments: Negative *Gastrointestinal Comments: Negative *Genitourinary Comments: Negative *Musculoskeletal Comments: Negative *Neurologic Comments: Negative Meds Home Medications and Allergies Home Medications ?Medication ?Instructions ?Recorded ?Confirmed ?Type apixaban 5 mg tablet (Eliquis) 5 mg PO BID 04/16/18 08/11/24 History cholecalciferol (vitamin D3) 50 50 mcg PO DAILY 05/02/21 08/11/24 History mcg (2,000 unit) capsule mecobalamin (vitamin B12) 1,000 1,000 mcg PO DAILY 05/02/21 08/11/24 History mcg chewable tablet duloxetine 30 mg capsule,delayed 30 mg PO BID 10/16/21 08/11/24 History release ascorbate calcium (vitamin C) 500 500 mg PO DAILY 05/15/23 08/11/24 History mg tablet ferrous sulfate 137 mg (45 mg 137 mg PO DAILY 05/15/23 08/11/24 History iron) tablet,extended release (Slow Fe) magnesium 250 mg tablet 250 mg PO DAILY 05/15/23 08/11/24 History hydrocortisone 2.5 % topical cream 1 applic topical BID 07/17/23 08/11/24 History multivitamin (One Daily 1 tab PO DAILY 01/08/24 08/11/24 History Multivitamin tablet) calcium amino acid chelate 200 mg PO DAILY 06/16/24 08/11/24 History sodium,potassium,mag sulfates 17.5 See Rx Instructions PO .COMPLEX 08/02/24 08/11/24 Rx gram-3.13 gram-1.6 gram oral soln #354 mL (Suprep Bowel Prep Kit) New Prescriptions to Start Prescriptions: Allergies Allergy/AdvReac Type Severity Reaction Status Date / Time Fish Containing Products Allergy Severe Nausea Verified 08/11/24 14:16 Iodinated Contrast Media Allergy Severe Rash Verified 08/11/24 14:16 ibuprofen (IBUPROFEN) Allergy Intermediate I-RASH Verified 08/11/24 14:16 latex (LATEX) Allergy Intermediate I-RASH Verified 08/11/24 14:16 Penicillins (PENICILLINS) Allergy Intermediate I-RASH Verified 08/11/24 14:16 poison eladio extract (POISON Allergy Unknown S-BLISTERING Verified 08/11/24 14:16 ELADIO EXTRACT) WELTS cefoxitin Allergy Unknown Verified 08/11/24 14:16 allergy reaction NSAIDS (Non-Steroidal Allergy Rash Verified 08/11/24 14:16 Anti-Inflamma Exam Data for Last 24 hours Vital signs and Labs for Last 24 Hours: Temp Pulse Resp BP Pulse Ox O2 Del Method 97.4 F L 86 20 127/68 97 Room Air 08/18/24 12:56 08/18/24 12:56 08/18/24 12:56 08/18/24 12:56 08/18/24 12:56 08/18/24 12:56 *Routine HEENT Exam Head: Present normocephalic Eye: Present EOMI and PERRL ENT: Present mucous membranes moist *Routine Neck Exam Neck: Present supple *Routine Respiratory Exam Respiratory: Present CTA bilaterally *Routine Cardiovascular Exam Cardiovascular: Present RRR *Routine Abdominal Exam Abdominal: Present soft and normoactive bowel sounds; Absent tenderness *Routine Rectal Exam Rectal:: deferred *Routine Genitalia Exam Genitalia:: deferred *Routine Extremities Exam Extremities: Absent cyanosis, clubbing or edema *Routine Skin Exam Skin: Present warm; Absent rash *Routine Neurological Exam Neurological: Present alert and oriented X3 Assessment and Plan *Assessment and plan (1) History of adenomatous polyp of colon: Status: Acute Category: Medical Code(s): Z86.0101 - Personal history of adenomatous and serrated colon polyps Plan A/P: 1. History of prior adenomatous colon polyp of colon is the preprocedural diagnosis. The patient will be anesthetized/sedated using MAC sedation. The patient has been seen and examined. Cardiac and lung assessment prior to the examination is stable. Proceed with planned surveillance colonoscopy.
--- NOTE | 2024-08-18 14:24 | P.PCN_ITS ---
[facility] Procedure Note Date: 08/18/24 Time: 14:38 Procedure Note:: Colonoscopy Procedure Report: Colonoscopy with cold snare polypectomy Endoscopist: Christiano Bruce II, MD Referring physician: Deion Smith MD Date of Procedure: August 18, 2024 Equipment: Olympus 190 variable stiffness pediatric colonoscope Sedation: MAC sedation Indication: Mrs. Arellano is a 79-year-old female who is here for follow-up surveillance colonoscopy secondary to a personal history of an adenomatous colon polyp. Her last colonoscopy with mn in April 2018 revealed a single polyp (tubular adenoma) which was removed. The patient does have a long history of mild IBS with diarrhea. She will very rarely see mucus in the stool but no blood. She will occasionally have some crampy discomfort that is relieved with sublingual Levsin. She does state that her father had Crohn's disease and may have had colon cancer. She formally took psyllium Konsyl. She has had several fundoplications of the stomach and had a prior history of a large hiatal hernia. Procedure: Prior to the procedure, a history and physical exam was performed, and patient's medications and allergies were reviewed. The risks, benefits and alternatives of the sedation and procedure were discussed with the patient. All questions were answered and informed consent was obtained. The patient was brought to the procedure room. Patient identification and proposed procedure were verified by the physician and the nurse. The patient was placed in a left lateral decubitus position and the scope was passed under direct vision. Throughout the procedure, the patient's blood pressure, pulse, and oxygen saturations were kelsey tored continuously. The colonoscopy was accomplished without difficulty. The patient tolerated the procedure well. Findings: On digital rectal examination there was normal rectal tone. There were no external hemorrhoids. The colonoscope was introduced through the anal canal to the rectum and advanced to the cecum. The ileocecal valve and appendiceal orifice were identified. The scope was advanced a short distance into the ileum which appeared grossly normal. The scope was then withdrawn into the colon. There were 3 diminutive polyps (ileocecal valve x 1 (6 to 7 mm) and ascending x 2 (3 and 4 mm)). These were all removed via cold snare polypectomy. They were all placed in the ascending formalin jar. The remaining cecum, ascending and transverse colon and mucosa were grossly normal. There were scattered diverticuli throughout the descending and sigmoid colon (LEFT colon). The rectum itself was normal. Upon retroflexion within the rectum there were grade 1-2 internal hemorrhoids. The preparation was excellent throughout with Hopwood Preparation Score of 9. The cecal time was 14 minutes. Impression: 1. Diminutive colonic polyps x 3 2. Extensive left-sided diverticulosis 3. Grade 1-2 internal hemorrhoids Plan: I will follow-up the polyp histology and discuss whether further colonoscopy is warranted. I would encourage continuation of psyllium Konsyl or tablet FiberCon on a maintenance basis.
[2024-08-18 14:43] VITALS: BP 129/73; PULSE 90; RESP 18; TEMP 36.3; O2SAT 96
[2024-08-18 14:53] VITALS: BP 135/84; PULSE 82; RESP 18; O2SAT 98
[2024-08-18 15:03] VITALS: BP 156/77; PULSE 78; RESP 18; O2SAT 98
[2024-08-18 15:20] VITALS: BP 154/81; PULSE 77; RESP 18; O2SAT 97
== END 2024-08-18 15:20 | disposition home or self-care (01) ==
PROVIDERS: PCP Family Medicine; Visit Provider Internal Medicine Gastroenterology
PROC: 0DJD8ZZ Inspection of Lower Intestinal Tract, Via Natural or Artificial Opening Endoscopic (ICD-10-PCS; CPT 45378; principal; 2024-08-18 13:30)
DX: D12.6 Benign neoplasm of colon, unspecified (principal); K57.90 Diverticulosis of intestine, part unspecified, without perforation or abscess without bleeding; K64.0 First degree hemorrhoids; K64.1 Second degree hemorrhoids; Z86.0101 Personal history of adenomatous and serrated colon polyps; Z86.718 Personal history of other venous thrombosis and embolism; Z88.6 Allergy status to analgesic agent; Z88.0 Allergy status to penicillin; Z91.040 Latex allergy status; Z88.1 Allergy status to other antibiotic agents; Z79.899 Other long term (current) drug therapy
CPT/HCPCS: 45385; J2003; J2704

== ENCOUNTER 2024-10-06 12:45 | Outpatient (CLI) | payer MEDICARE, BC, SELFPAY ==
--- OUTSIDE RECORDS SUMMARY | 2024-09-13 09:30 | XMS_ITS | Encounter Summary ---
Author Organization Healthcare Address [address] [place] [address] Care Team Providers Care Generator Repairer Name Role Phone Deion Smith MD Primary Care Provider [phone] Reason for Referral * Other Medical (Routine) - Closed Specialty Diagnoses / Procedures Referred By Contac t Referred To Contact Pain Medicine Diagnoses Lumbar radiculopathy Procedures Interlaminer Epidural - Lumbar / Sacral Porter Valdez MD [address] [place] [address] Phone: tel: fax: [facility] Interventional Pain Medicine [address] [place] [address] Phone: tel: fax: Referral ID Status Reason Start Date Expiration Date Visits Re quested Visits Authorized [id number] Closed 09/13/2024 03/15/2026 1 1 Reason for Visit * Reason Comments Follow-up Encounter Details Date Type Department Care Team (Latest Contact Info) Description 09/13/2024 9:30 AM EDT Office Visit Interventional Pain Medicine [address] [place] [phone] Porter Valdez MD [address] [place] [address] Lumbar radiculopathy (Primary Dx) Social History Tobacco Use Types [...] Sign Reading Time Taken Comments Blood Pressure 117/73 09/13/2024 9:28 AM EDT Pulse 90 09/13/2024 9:28 AM EDT Temperature 36 C (96.8 F) 09/13/2024 9:28 AM EDT Respiratory Rate 16 09/13/2024 9:28 AM EDT Oxygen Saturation 97% 09/13/2024 9:28 AM EDT Inhaled Oxygen Concentration - - Weight 74.9 kg (165 lb 2 oz) 09/13/2024 9:28 AM EDT Height 172.7 cm (5' 8 ) 09/13/2024 9:28 AM EDT Body Mass Index 25.11 09/13/2024 9:28 AM EDT documented in this encounter Miscellaneous Notes * Clinician Note - Enedelia Schmitz CNA - 09/13/2024 9:30 AM EDT Cymb 09/13/24 * Progress Notes - Chau Montanez PA - 09/13/2024 9:30 AM EDT Images from the original note were not included. Interventional Pain Medicine Follow Up Patient Note Subjective: Interval Hx: Ms. Arellano presents today for reevaluation of symptoms. She is s/p L5/S1 LESI on 05/18/24 and experienced 90% relief in her lower back and radicular pain that lasted for 3 months. The pain then recurred. Currently pain is rated 6/10. History of Present Illness: Mimi Arellano is a 79 y.o. female with PMHx of Afib (Eliquis). Patient referred by No ref. provider found for evaluation of low back pain Presents with: Site: low back Onset: years, worsening Severity: 6/10 Descriptors: dull, aching, sharp, burning Aggravating Factors: sitting to standing, prolonged walking Relieving Factors: rest Associated Symptoms: RLE pain below knee to calf, denies weakness or saddle anesthesia GPS: 54/100 CAYLA: 12 Current Disabilities: limitations in ADLs/IADLs [...] weeks in the last 6 months at [facility] Feb -April 2024 PT made pain worse Previous Interventions/Consults: Ortho (05/18/24) L5/S1 LESI Other Medical History Work Status/Pain [...] Left Right Comments L2: Hip flexion (iliopsoas) 06/21 06/21 L3: Knee extension (quad) 06/21 06/21 L4: Ankle DF (TA) 06/21 06/21 L5: Great Toe DF (EHL) 06/21 06/21 S1: Ankle PF, Foot Eversion (Peroneal longus/brevis) 06/21 06/21 S2: Great toe flexion (FHL), Knee Flexion 06/21 06/21 Reflexes Left Right L4: Patellar 2/4 2/4 S1: Achilles 2/4 2/4 Clonus None None Region Exam Left (+/-) Right (+/-) Comments Sacroiliac Joint Reyna's Finger (PSIS) + - Tenderness to palpation - - CLAUDIA + - Gaenslen's - - Compression - - Distraction - - Shopping cart sign positive Imaging/Studies: Images of the following studies have been personally reviewed and my independent interpretation reveals as written: (03/01/24) Xray L Spine: - multi-level degenerative changes anf facet hypertrophy - Grade 1 anterolisthesis L4-L5. (01/05/24) MRI L Spine: - Grade I spondylolisthesis of L4-5, annular [...] #Lumbar spinal stenosis with neurogenic claudication, Chronic worsening # Lumbar radiculopathy -symptoms in the bilateral lower extremities with + shopping cart sign -s/p (05/18/24) L5/S1 LESI with >90% relief that lasted for > 3 months, but has since worn off -Will schedule repeat L5-S1 LESI -Recommended to continue with conservative management including home exercise program, heat/ice, topical NSAIDs, etc. -can repeat [id number] PRN #Right peroneal neuropathy -may have a [...] up in 3 months Cosigned by Porter Vladez MD at 09/14/2024 8:08 AM EDT Associated attestation - Porter Valdez MD - 09/14/2024 8:08 AM EDT I attest to being involved in providing substantive part of the medical decision making in patient care. documented in this encounter Plan of Treatment Upcoming Encounters Date Type Department Care Team (Late st Contact Info) Description 11/15/2024 1:00 PM EDT Office Visit Medical Office Building [facility] [address] [facility] [address] [place] [address] Davy Ruiz MD [address] [facility] [address] [place] [address] 12/29/2024 10:30 AM EST Office Visit Interventional Pain Medicine [address] [place] [phone] Porter Valdez MD [address] [place] [address] documented as of this encounter Results * ME NJX DX/THER SBST INTRLMNR LMBR/SAC W/IMG GDN (09/28/2024 1:00 PM EDT) Narrative Porter Valdez MD - 09/28/2024 1:00 PM EDT Porter Valdez MD 09/28/2024 4:24 PM Interlaminer Epidural - Lumbar / Sacral Performed by: Donavon Hope DO Authorized by: Porter Valdez MD Collins Protocol: Time out was called immediately prior to procedure to meet all ambulatory requirements per organizational policy: Yes Patient identity confirmed: Arm band, , name and procedure consent Consent obtained?: Yes Procedure consent matches procedure scheduled: Yes Procedure side and site confirmed: Yes Imaging studies available (when applicable): Yes Procedure: Moderate conscious sedation used?: no Guidance used (if applicable): fluoro us Porter Valdez MD IN CLINIC/BEDSIDE ORDERABLES Final Result documented in this encounter Visit Diagnoses Diagnosis Lumbar radiculopathy- Primary Thoracic or lumbosacral neuritis or radiculitis, unspecified Lumbar radiculopathy Thoracic or lumbosacral neuritis or radiculitis, unspecified documented in this encounter Additional Health Concerns Assessment Noted Time A fall risk assessment has been complete d for the patient 09/13/2024 9:28 AM EDT A Body Mass Index follow-up plan has been documented for the patient 09/14/2024 8:08 AM EDT documented as of this encounter Care Teams Generator Repairer Relationship Specialty Start Date End Date Deion Smith MD [address] [place] [address] PCP - General 06/30/20 documented as of this encounter
--- OUTSIDE RECORDS SUMMARY | 2024-09-27 12:30 | XMS_ITS | Encounter Summary ---
[facility] Organization [facility] Address [address] [place] [address] Care Team Providers Care Photographic Plate Maker Name Role Phone Deion Smith MD Primary Care Provider + Reason for Referral * Diagnostic Imaging (Routine) - Authorized Specialty Diagnoses / Procedures Referred By Contac t Referred To Contact Diagnoses Encounter for screening mammogram for malignant neoplasm of breast Procedures Mammo Screening Digital Tomosynthesis Bilateral With CAD Deion Smith MD [address] [place] [address] Phone: tel: fax: [facility] [address] [place] [address] [place] [address] Phone: tel: fax: Referral ID Status Reason Start Date Expiration Date V isits Requested Visits Authorized Authorized 09/27/2024 12/27/2025 1 1 Reason for Visit * Reason Comments Medicare Wellness-subsequent Encounter Details Date Type Department Care Team (Late st Contact Info) Description 09/27/2024 12:30 PM EDT Office Visit [facility] [address] [place] [address] Deion Smith MD [address] [facility] [address] [facility] [place] [address] (work) Medicare annual wellness visit, subsequent (Primary Dx); Atrial fibrillation, unspecified type; Fibromyalgia; Encounter for screening mammogram for malignant neoplasm of breast Social History Tobacco Use Types Packs/Day Years Used Date Smoking Tobacco: Never Passive Smoke Exposure: Never Smokeless Tobacco: Never Tobacco Cessation:Counseling Given: Not Answered Comments:Tried a puff at 10 yo. Never smoked afterwards. Alcohol Use Standard Drinks/Week Comments Yes 1 (1 standard drink = 0.6 oz pure alcohol) Occasionally enjoy wine or mixed drinks. Not weekly. PHQ-2 Answer Date Recorded Retired PHQ-9: Brief Depression Severity Measure Score 1 07/25/2022 PHQ-2 Answer Date Recorded Patient Health Questionnaire-2 Score 1 09/27/2024 Comments No Sex and Gender Information Value Date Recorded Sex Assigned at Female 10/10/2021 10:25 AM EDT Legal Sex Female 1:13 PM EDT Gender Identity Female 10/10/2021 10:25 AM EDT Sexual Orientation Straight 10/10/2021 10 :25 AM EDT documented as of this encounter Last Filed Vital Signs Vital Sign Reading Time Taken Comments Blood Pressure 130/80 09/27/2024 12:34 PM EDT Pulse 84 09/27/2024 12:34 PM EDT Temperature 36.6 C (97.8 F) 09/27/2024 12:34 PM EDT Respiratory Rate 20 09/27/2024 12:34 PM EDT Oxygen Saturation 96% 09/27/2024 12:34 PM EDT Inhaled Oxygen Concentration - - Weight 75.6 kg (166 lb 9.6 oz) 09/27/2024 12:34 PM EDT Height 172.7 cm (5' 7.99 ) 09/27/2024 12:34 PM E DT Body Mass Index 25.34 09/27/2024 12:34 PM EDT documented in this encounter Functional Status documented as of this encounter Progress Notes * Deion Smith MD - 09/27/2024 12:30 PM EDTAssociated Problem(s): Atrial fibrillation Orders: apixaban (ELIQUIS) 5 MG tablet tablet; Take 1 tablet by mouth 2 (Two) Times a Day. * Deion Smith MD - 09/27/2024 12:30 PM EDTAssociated Problem(s): Fibromyalgia Orders: DULoxetine (CYMBALTA) 30 MG capsule; TAKE 1 CAPSULE BY MOUTH TWICE DAILY * Deion Smith MD - 09/27/2024 12:30 PM EDT Images from the original note were not included. Subjective The ABCs of the Annual Wellness Visit Medicare Wellness Visit Mimi Arellano is a 79 y.o. patient who presents for a Medicare Wellness Visit. The following portions of the patient's history were reviewed and updated as appropriate: allergies, current medications, past family history, past medical history, past social history, past surgical history, and problem list. Compared to one year ago, the patient's physical health is the same. Compared to one year ago, the patient's mental health is the same. Recent Hospitalizations: She was not admitted to the hospital during the last year. Current Medical Providers: Patient Care Team: Deion Smith MD as PCP - General (Family Medicine) Outpatient Medications Prior to Visit Medication Sig Dispense Refill Cholecalciferol (Vitamin D) 50 MCG (1999) tablet Take 1 tablet by mouth Daily. hydrocortisone 2.5 % cream Apply 1 Application topically to the appropriate area as directed 2 (Two) Times a Day. 28 g 11 Magnesium 500 MG tablet Take by mouth. multivitamin with minerals tablet tablet Take 1 tablet by mouth Daily. vitamin B-12 (CYANOCOBALAMIN) 1000 MCG tablet Take 1 tablet by mouth Daily. DULoxetine (CYMBALTA) 30 MG capsule TAKE 1 CAPSULE BY MOUTH TWICE DAILY 180 capsule 3 Eliquis 5 MG tablet tablet TAKE 1 TABLET BY MOUTH TWICE DAILY 180 tablet 3 HYDROcodone-acetaminophen (NORCO) 5-325 MG per tablet Take 1 tablet by mouth Every 12 (Twelve) Hours As Needed for Severe Pain. 12 tablet 0 silver sulfadiazine (Silvadene) 1 % cream Apply 1 Application topically to the appropriate area as directed 2 (Two) Times a Day. 50 g 0 No facility-administered medications prior to visit. No opioid medication identified on active medication list. I have reviewed chart for other potential high risk medication/s and harmful drug interactions in the elderly. Aspirin is not on active medication list. Aspirin use is not indicated based on review of current medical condition/s. Risk of harm outweighs potential benefits. . Patient Active Problem List Diagnosis Atrial fibrillation half-way current use of anticoagulant Iron deficiency CANELO (obstructive sleep apnea) Fibromyalgia Essential tremor Lower left DVT in 2017 Ankle edema, bilateral Ghotra's cyst of knee Callus of foot HTN (hypertension) Hypoferremia Onychoincurvatum Onychomycosis Pain in left ankle and joints of left foot REM behavioral disorder RLS (restless legs syndrome) Advance Care Planning Advance Directive is not on file. ACP discussion was held with the patient during this visit. Patient has an advance directive (not in EMR), copy requested. Objective Vitals: 09/27/24 1234 BP: 130/80 Pulse: 84 Resp: 20 Temp: 97.8 ??F (36.6 ??C) SpO2: 96% Weight: 75.6 kg (166 lb 9.6 oz) Height: 172.7 cm (67.99 ) PainSc: 4 PainLoc: Back Estimated body mass index is 25.34 kg/m?? as calculated from the following: Height as of this encounter: 172.7 cm (67.99 ). Weight as of this encounter: 75.6 kg (166 lb 9.6 oz). Does the patient have evidence of cognitive impairment? No Health Risk Assessment Smoking Status: Social History Tobacco Use Smoking Status Never Passive exposure: Never Smokeless Tobacco Never Tobacco Comments Tried a puff at 10 yo. Never smoked afterwards. Alcohol Consumption: Social History Substance and Sexual Activity Alcohol Use Yes Alcohol/week: 1.0 - 2.0 standard drink of alcohol Types: 1 - 2 Glasses of wine per week Comment: Occasionally enjoy wine or mixed drinks. Not weekly. Fall Risk Screen STEADI Fall Risk Assessment was completed, and patient is at LOW risk for falls.Assessment completed on:09/27/2024 Depression Screening Little interest or pleasure in doing things? Not at all Feeling down, depressed, or hopeless? Several days PHQ-2 Total Score 1 Health Habits and Functional and Cognitive Screenin09/20/2024 3:56 PM Functional & Cognitive Status Do you have difficulty preparing food and eating? No Do you have difficulty bathing yourself, getting dressed or grooming yourself? No Do you have difficulty using the toilet? No Do you have difficulty moving around from place to place? No Do you have trouble with steps or getting out of a bed or a chair? No Current Diet Other Dental Exam Not up to date Eye Exam Up to date Exercise (times per week) Other Current Exercises Include Gardening;Home Exercise Program (TV, Computer, Etc.);House Cleaning;Yard Work Do you need help using the phone? No Are you deaf or do you have serious difficulty hearing? No Do you need help to go to places out of walking distance? No Do you need help shopping? No Do you need help preparing meals? No Do you need help with housework? No Do you need help with laundry? No Do you need help taking your medications? No Do you need help managing money? No Do you ever drive or ride in a car without wearing a seat belt? No Have you felt unusual fatigue (could be tiredness), stress, anger or loneliness in the last month? Yes Who do you live with? Alone If you need help, do you have trouble finding someone available to you? No Have you been bothered in the last four weeks by sexual problems? No Do you have difficulty concentrating, remembering or making decisions? No Age-appropriate Screening Schedule: Refer to the list below for future screening recommendations based on patient's age, sex and/or medical conditions. Orders for these recommended tests are listed in the plan section. The patient has been provided with a written plan. Health Maintenance List Health Maintenance Topic Date Due DXA SCAN Never done TDAP/TD VACCINES (1 - Tdap) Never done Pneumococcal Vaccine 50+ (1 of 1 - PCV) Never done ZOSTER VACCINE (1 of 2) Never done RSV Vaccine - Adults (1 - 1-dose 75+ series) Never done HEPATITIS C SCREENING Never done COVID-19 Vaccine ( - 2023-25 season) 2024 (Originally 10/19/2023) INFLUENZA VACCINE 11/17/2024 ANNUAL WELLNESS VISIT 09/27/2025 COLORECTAL CANCER SCREENING Discontinued [facility] Preventative Services Quick Reference Risk Factors Identified During Encounter Dental Screening Recommended Vision Screening Recommended F/U Specialists for Lumbar Radic CT in December Mammogram this month The above risks/problems have been discussed with the patient. Pertinent information has been shared with the patient in the After Visit Summary. An After Visit Summary and PPPS were made available to the patient. Follow Up: Next Medicare Wellness visit to be scheduled in 1 year. Assessment & Plan Medicare annual wellness visit, subsequent Atrial fibrillation, unspecified type Orders: apixaban (ELIQUIS) 5 MG tablet tablet; Take 1 tablet by mouth 2 (Two) Times a Day. Fibromyalgia Orders: DULoxetine (CYMBALTA) 30 MG capsule; TAKE 1 CAPSULE BY MOUTH TWICE DAILY Encounter for screening mammogram for malignant neoplasm of breast Orders: Mammo Screening Digital Tomosynthesis Bilateral With CAD; Future Follow Up: No follow-ups on file. documented in this encounter Plan of Treatment Upcoming Encounters Date Type Department Care Team (Late st Contact Info) Description 11/04/2024 11:30 AM EDT Appointment [facility] [place] [place] AT [address] [place] [address] 04/01/2025 9:45 AM EST Office Visit [facility] [address] [place] [address] Deion Smith MD [address] [place] [address] 09/30/2025 10:15 AM EDT Office Visit [facility] [address] [address] Deion Smith MD [address] [place] [address] Scheduled Orders Name Type Priority Associated Diagnoses Orde r Schedule Mammo Screening Digital Tomosynthesis Bilateral With CAD Imaging Routine Encounter for screening mammogram for malignant neoplasm of breast Expected: 09/28/2024, Expires: 09/27/2025 documented as of this encounter Visit Diagnoses Diagnosis Medicare annual wellness visit, subsequent- Primary Atrial fibrillation, unspecified type Fibromyalgia Unspecified myalgia and myositis Encounter for screening mammogram for malignant neoplasm of breast documented in this encounter Additional Health Concerns Assessment Noted Time PHQ-2 Depression Total Score: 2 09/22/19 24 10:13 AM EDT documented as of this encounter Care Teams Photographic Plate Maker Relationship Specialty Start Date End Date Deion Smith MD [address] [place] [address] PCP - General Family Medicine 09/19/21 documented as of this encounter
--- OUTSIDE RECORDS SUMMARY | 2024-09-28 13:00 | XMS_ITS | Encounter Summary ---
Author Organization Healthcare Address [address] [place] [address] Care Team Providers Care Electric Brain Wave Equipment Mechanic Name Role Phone Dieon Smith MD Primary Care Provider [phone] Reason for Visit * Reason Comments Injections * Other Medical (Routine) - Closed Specialty Diagnoses / Procedures Referred By Gage alberto Referred To Contact Pain Medicine Diagnoses Lumbar radiculopathy Procedures Interlaminer Epidural - Lumbar / Sacral Porter Valdez MD [address] [address] Phone: tel: fax: [facility] Interventional Pain Medicine [address] [place] [address] Phone: tel: fax: Referral ID Status Reason Start Date Expiration Date Visits Re quested Visits Authorized [id number] Closed 09/13/2024 03/15/2026 1 1 Encounter Details Date Type Department Care Team (Latest Contact Info) Description 09/28/2024 1:00 PM EDT Procedure Visit Interventional Pain Medicine [address] [place] [address] Porter Valdez MD [address] [facility] [place] [address] Lumbar radiculopathy Social History Tobacco Use Types Packs/Day Years Used Date Smoking Tobacco: Never Passive Smoke Exposure: Never Smokeless Tobacco: Never Tobacco Cessation:Counseling Given: Not Answered Alcohol Use Standard Drinks/Week Comments Yes 1 [...] Sign Reading Time Taken Comments Blood Pressure 138/83 09/28/2024 1:45 PM EDT Pulse 95 09/28/2024 1:45 PM EDT Temperature 36.2 C (97.2 F) 09/28/2024 1:27 PM EDT Respiratory Rate 18 09/28/2024 1:45 PM EDT Oxygen Saturation 94% 09/28/2024 1:45 PM EDT Inhaled Oxygen Concentration - - Weight 74.8 kg (165 lb) 09/28/2024 1:27 PM EDT Height 172.7 cm (5' 8 ) 09/28/2024 1:27 PM EDT Body Mass Index 25.09 09/28/2024 1:27 PM EDT documented in this encounter Miscellaneous Notes * Clinician Note - Jocelyne Lew RN - 09/28/2024 1:00 PM EDTAssociated Order(s): Interventional Pain Nurse Procedure Protocol Interventional Pain Nurse Procedure Protocol Documentation: Indications: Documentation supporting primary procedure completed by : Porter Valdez MD See the provider procedure note for performed procedure details and findings. Pre-Procedure Checklist: Currently taking anticoagulant(s)?: yes Name of anticoagulant?: Apixaban Last dose of anticoagulant medication:: Eliquis 09/24/240 Stock Parts Inspector present?: no Additional Pre-Procedure Comments: LESI Time out @ 1338 per LB Procedure details: Procedure start time:: 09/28/2024 1:39 PM Procedure end time:: 09/28/2024 1:42 PM Guidance used (if applicable): fluoro Total amount of contrast dye (mGy): 1.19 Fluoro time: 10.2 seconds Moderate conscious sedation used?: no Post-procedure details: Orientation at discharge?: Normal to time, normal to place, normal to person, normal to situation and completely oriented Mood and Affect normal?: yes Discharged to: home Mode of exit: Walked (to [facility] @ [address] Val[address]) Attendance: Constant attendance by certified staff until patient recovered Recovery: Patient returned to pre-procedure baseline Estimated blood loss (see I/O flowsheets): no Specimens recovered: None Patient is stable for discharge or admission: yes Procedure completion: Tolerated well, no immediate complications * Progress Notes - Donavon Hope DO - 09/28/2024 1:00 PM EDTAssociated Order(s): Interlaminer Epidural - Lumbar / Sacral Pre-Procedure Diagnose(s): Lumbar radiculopathy Post-Procedure Diagnose(s): Lumbar radiculopathy Patient ID: Mimi Arellano is a 79 y.o. female. Encounter Diagnosis Name Primary? Lumbar radiculopathy Interlaminer Epidural - Lumbar / Sacral Performed by: Donavon Hope DO Authorized by: Porter Valdez MD [facility] Protocol: Time out was called immediately prior to procedure to meet all ambulatory requirements per organizational policy: Yes Patient identity confirmed: Arm band, , name and procedure consent Consent obtained?: Yes Procedure consent matches procedure scheduled: Yes Procedure side and site confirmed: Yes Imaging studies available (when applicable): Yes Procedure: Moderate conscious sedation used?: no Guidance used (if applicable): fluoro Patient seen and evaluated prior to their procedure.There is nothing in the patient's overall condition that would affect the planned course of the patient's treatment today that requires additional interventions to reduce risk to the patient. Procedure(s): L5-S1 Lumbar Interlaminar Epidural Steroid injection Anesthesia Type: local only Complications: none Follow-up Plan: Clinic follow up as scheduled Procedure: This patient was seen earlier for a comprehensive evaluation of their painful condition.After discussing treatment options, the patient elected to proceed with a lumbar interlaminar epidural steroid injection. Written, informed consent was obtained before the start of the procedure. Thepatient's history of present illness, past medical history (including current medications and allerg ies), and physical examination were reviewed with the patient immediately before the procedure, andit was confirmed directly with the patient that they desired to proceed. The patient ambulated to the operating room and was placed in the prone position with pressure points padded. A time out was performed, confirming the patient's identification, allergy status, the side(s) of the procedure, and the procedure(s) to be performed. All operators were wearing hats, masksand sterile gloves. The patient underwent ChloraPrep skin prep followed by sterile drape. The interlaminar space was then identified by fluoroscopy and marked. The patient received 1% lidocaine for local anesthesia subcutaneously. An 20-gauge 9 cm Tuohy needle was then advanced under fluoroscopic guidance using a coaxial approach, loss of resistance to saline until the epidural space was entered. After negative aspiration, under live fluoroscopy in the anterior-posterior position, 1 mL of contrast solution was injected. This demonstrated appropriate epidural spread and was negative for intravascular or intrathecal flow. After confirmation of proper positioning of the needle within the epidural space 40 mg of DepoMedrol was injected with 3 mL of normal saline. The stylette was replaced and the needle was then removed. Sterile bandage was applied over the puncture site. Following completion of the procedure, the patient was transported to the PACU, then was later discharged in stable condition. Cosigned by Porter Valdez MD at 09/28/2024 4:24 PM EDT Associated attestation - Porter Valdez MD - 09/28/2024 4:24 PM EDT I was present for the entirety of the procedure(s). documented in this encounter Plan of Treatment Upcoming Encounters Date Type Department Care Team (Late st Contact Info) Description 11/15/2024 1:00 PM EDT Office Visit Medical Office Building [facility] [address] [facility], [address] [place] [address] Davy Ruiz MD [address] [place] [address] 12/29/2024 10:30 AM EST Office Visit Interventional Pain Medicine [address] [place] [address] Porter Vadlez MD [address] [place] [address] documented as of this encounter Procedures Procedure Name Priority Date/Time Associated Diagnosis Comments IVP NURSE PROCEDURE PROTOCOL Routine 09/28/2024 1:00 PM EDT NV NJX DX/THER SBST INTRLMNR LMBR/SAC W/IMG GDN Routine 09/28/2024 1:00 PM EDT Lumbar radiculopathy documented in this encounter Results * Interventional Pain Nurse Procedure Protocol (09/28/2024 1:00 PM EDT) Narrative Mimi Husain, RN - 09/28/2024 1:00 PM EDT Mimi Husain RN 09/28/2024 4:24 PM Interventional Pain Nurse Procedure Protocol Documentation: Indications: Documentation supporting primary procedure completed by : Porter Valdez MD See the provider procedure note for performed procedure details and findings. Pre-Procedure Checklist: Currently taking anticoagulant(s)?: yes Name of anticoagulant?: Apixaban Last dose of anticoagulant medication:: Eliquis 09/24/24 2130 Stock Parts Inspector present?: no Additional Pre-Procedure Comments: LESI Time out @ 1338 per LB Procedure details: Procedure start time:: 09/28/2024 1:39 PM Procedure end time:: 09/28/2024 1:42 PM Guidance used (if applicable): fluoro Total amount of contrast dye (mGy): 1.19 Fluoro time: 10.2 seconds Moderate conscious sedation used?: no Post-procedure details: Orientation at discharge?: Normal to time, normal to place, normal to person, normal to situation and completely oriented Mood and Affect normal?: yes Discharged to: home Mode of exit: Walked (to [facility] @ [address] Valdez) Attendance: Constant attendance by certified staff until patient recovered Recovery: Patient returned to pre-procedure baseline Estimated blood loss (see I/O flowsheets): no Specimens recovered: None Patient is stable for discharge or admission: yes Procedure completion: Tolerated well, no immediate complications Porter Valdez MD IN CLINIC/BEDSIDE ORDERABLES Final Result * NV NJX DX/THER SBST INTRLMNR LMBR/SAC W/IMG GDN (09/28/2024 1:00 PM EDT) Narrative Porter Valdez MD - 09/28/2024 1:00 PM EDT Porter Valdez MD 09/28/2024 4:24 PM Interlaminer Epidural - Lumbar / Sacral Performed by: Donavon Hope DO Authorized by: Porter Valdez MD [employer] Protocol: Time out was called immediately prior to procedure to meet all ambulatory requirements per organizational policy: Yes Patient identity confirmed: Arm band, , name and procedure consent Consent obtained?: Yes Procedure consent matches procedure scheduled: Yes Procedure side and site confirmed: Yes Imaging studies available (when applicable): Yes Procedure: Moderate conscious sedation used?: no Guidance used (if applicable): fluoro Porter Valdez MD IN CLINIC/BEDSIDE ORDERABLES Final Result documented in this encounter Visit Diagnoses Diagnosis Lumbar radiculopathy Thoracic or lumbosacral neuritis or radiculitis, unspecified documented in this encounter Administered Medications Inactive Administered Medications - up to 3 most recent administrations Medication Order MAR Action Action Date Dose Rate Site iohexol (OMNIPaque) 300 MG/ML injection 10 mL 10 mL, Other, Once in imaging, 1 dose, Starting on Fri09/28/24 at 1333, Until Fri09/28/24 at 1340, RoutineIndications:Lumbar radiculopathy Given by Other 09/28/2024 1:40 PM EDT 10 mL lidocaine (Xylocaine) 1 % injection 30 mL 30 mL, Injection, Once, 1 dose, On Fri09/28/24 at 1430, RoutineIndications:Lumbar radiculopathy Given by Other 09/28/2024 1:40 PM EDT 30 mL methylPREDNISolone acetate (DEPO-Medrol) injection 40 mg 40 mg, Intra-articular, Once, 1 dose, On Fri09/28/24 at 1430, RoutineIndications:Lumbar radiculopathy Given by Other 09/28/2024 1:40 PM EDT 40 mg sodium chloride (PF) 0.9 % injection 20 mL 20 mL, Intracatheter, Once, 1 dose, On Fri09/28/24 at 1430, RoutineIndications:Lumbar radiculopathy Given by Other 09/28/2024 1:40 PM EDT 20 mL documented in this encounter Additional Health Concerns Assessment Noted Time A fall risk assessment has been complete d for the patient 09/28/2024 1:27 PM EDT A Body Mass Index follow-up plan has been documented for the patient 09/28/2024 4:24 PM EDT documented as of this encounter Care Teams Electric Brain Wave Equipment Mechanic Relationship Specialty Start Date End Date Deion Smith MD [address] [facility] [place] [address] PCP - General 06/30/20 documented as of this encounter
--- NOTE | 2024-10-06 12:48 | MM_ITS ---
PROCEDURE INFORMATION: Exam: MG Bilateral Screening 3D Mammography Exam date and time: 10/06/2024 1:07 PM Age: 79 years old Clinical indication: Screening examination TECHNIQUE: Imaging protocol: Bilateral Screening tomosynthesis and 2D mammography including computer-aided detection (CAD) when performed. COMPARISON: 1. MG MM DIG MAMM DX UNILAT RT CAD 10/06/2023 1:44 PM 2. MG MM DIG SCREENING MAMM BI W/CAD 09/24/2023 1:53 PM FINDINGS: MAMMOGRAPHY: Breast composition: There are scattered areas of fibroglandular density. Mass: No suspicious masses. Architectural distortion: None. Calcifications: No suspicious calcifications. Asymmetric density: None. Skin thickening: None. Axillary adenopathy: None. IMPRESSION: No mammographic evidence of malignancy. Annual screening is recommended unless otherwise clinically indicated. ASSESSMENT: BI-RADS Category 1: Negative.
--- OUTSIDE RECORDS SUMMARY | 2024-10-06 12:48 | XMS_ITS | Clinical Summary ---
Author Organization [facility] Address [address] [place] [address] Care Team Providers Care General Manager Name Role Phone Deion Smith MD Primary Care Provider [phone] Allergies Active Allergy Reactions Criticality Noted Date [...] not know rxn details Low 04/30/2024 Latex Hives,Itching,Rash High 09/19/2021 Nsaids Unknown - Patient st ates they do not know rxn details Low 04/30/2024 Penicillins Anxiety,Hives,Itchin g,Rash,S hortness of breath,Swelling,Unknown - Patient states they do not know rxn details High 02/03/2018 Poison Monica Extract Anaphylaxis,Anxiety, Dermatit is,Hives,Itching,Rash,Shortn ess of breath,Swelling High 12/26/2021 Medications Multiple Vitamin (MULTI VITAMIN DAILY PO) TAKE 1 TABLET DAILY. 02/04/20 18 Active Eliquis 5 MG tablet Take 1 tablet (5 mg) by mouth in the morning and 1 tablet (5 mg) in the evening. 01/29/20 18 Active cholecalcifero l (Vitamin D-3) 50 MCG (2000 UT) tablet Take 1 tablet (2,000 Units) by mouth 1 (one) time each day. Active DULoxetine (Cymbalta) [address] capsule Take 1 capsule (30 mg) by mouth in the morning and 1 capsule (30 mg) before bedtime. 11/10/19 24 Active Ascorbic Acid (vitamin C) 500 MG tablet Active Calcium Carb-Cholecalc iferol (Calcium 1000 + D) 1000-20 MG-MCG tablet Active Iron-Vitamin C 65-125 MG tablet Active Zinc 50 MG tablet Active magnesium oxide (Mag-Ox) 400 mg tablet 1 tablet (400 mg) daily. Active hydrocortisone 1 % cream Apply topically 2 times a day. THIN LAYER TO AFFECTED AREA Active Hyoscyamine Sulfate (LEVSIN/SL SL) Activ e Cipro 250 MG tablet Take 1 tablet every 12 hours by oral route for 3 days. 09/11/19 25 025 Discontinued Hospital, Clinic, or Other Facility Administered Medication Ordered Dose Route Frequency Start Date End Date Status lidocaine (Xylocaine) 1 % injection 30 mLIndications:Lumbar radiculopathy 30 mL IJ Once 09/28/2024 09/28/2024 Ended sodium chloride (PF) 0.9 % injection 20 mLIndications:Lumbar radiculopathy 20 mL IK Once 09/28/2024 09/28/2024 Ended iohexol (OMNIPaque) 300 MG/ML injection 10 mLIndications:Lumbar radiculopathy 10 mL OTHER Once in imaging 09/28/2024 09/28/2024 Ended methylPREDNISolone acetate (DEPO-Medrol) injection 40 mgIndications:Lumbar radiculopathy 40 mg IX Once 09/28/2024 09/28/2024 Ended Active Problems No known active problems Encounters Date Type Department Care Team Description 09/28/2024 1:00 PM EDT Procedure Visit Interventional Pain Medicine [address] [place] [address] Porter Valdez MD Lumbar radiculopathy 09/28/2024 Travel 09/24/2024 Travel 09/13/2024 9:30 AM EDT Office Visit Interventional Pain Medicine [address] [place] [address] Porter Valdez MD Lumbar radiculopathy (Primary Dx) 09/13/2024 Travel 09/06/2024 Travel 07/19/2024 12:30 PM EDT Office Visit Medical Office Building [facility] [address] [facility], [address] [place] [address] Davy Ruiz MD Spinal stenosis of lumbar region with neurogenic claudication (Primary Dx) 07/19/2024 Travel 07/12/2024 Travel from Last 3 Months Family History Medical History Relation Name Comments Cancer [address] Down syndrome [address] Leukemia Brother 2 Developmental delay Brother 3 Shahzad Olivaoch II I Depression Daughter Dariela Galo Crohn's disease Father Kidney disease Father Cancer Maternal Grandmother Lula Zelaya Depression Maternal Grandmother Lula Zelaya Cancer Mother [place] Ariana Depression Mother [place] Ariana Hyperlipidemia Mother [place] Ariana Kidney cancer Mother [place] Ariana Cancer Mother's Brother Bertrand Zelaya Cancer Mother's Sister Kayleigh Belchik Cardiac disorder Other 1 Leukemia Other 2 Brain cancer Other 3 Breast cancer Other 4 Cancer Paternal Grandfather Shahzad Mcdonough Ariana Osteoporosis Sister 1 Ana Laura Long Depression Sister 2 Shireen Ryann Hypertension Sister 2 Shireen Ryann problems Son Idris Cem Arellano Seizures Son Idris Cem Arellano Relation Name Status Comments Brother [address] Brother 2 Brother 3 Shahzad Olivaoch III Alive Daughter Dariela Galo Alive Father Maternal Grandmother Lula Zelaya Mother [place] Ariana Mother's Brother Bertrand Zelaya Mother's Sister Paxico Belchik Other 1 Other 2 Other 3 [...] Mass Index 25.09 09/28/2024 1:27 PM EDT Plan of Treatment Upcoming Encounters Date Type Department Care Team (Late st Contact Info) Description 11/15/2024 1:00 PM EDT Office Visit Medical Office Building [facility] [address], [address] [place] [address] Davy Ruiz MD [address] [place] [address] 12/29/2024 10:30 AM EST Office Visit Interventional Pain Medicine [address] [place] [address] Porter Valdez MD [address] [place] [address] Health Maintenance Due Date Last Done Comments [facility]-Bone Density Scan 1945 [facility]-Depression Screening 1945 [facility]-Hepatitis C Screening 1945 [facility]-/Child/Adol SDOH Screenings 1945 [id number] Vaccine (#1) 1951 [facility]- SDOH Screenings 1964 [facility]-Adult SDOH Screenings 1964 [facility]-DTaP,Tdap,and Td Vaccines (1 - Tdap) 1965 [facility]-Pneumococcal Vaccine: 50+ Years (1 of 1 - PCV) 1996 12/01/2017 [facility]-Zoster Vaccines (1 of 2) 1996 [facility]-RSV Vaccine: 60+ Years or (1 - 1-dose 75+ series) 2021 [facility]-Medicare Annual Wellness (AWV) 09/21/2024 09/22/2023, 07/25/2022 [facility]-Influenza Vaccine (#1) 2024 [facility]-Obesity Intervention Completed 025, 09/13/2024, 07/19/2024, Additional history exists HPV Vaccines Aged Out [...] PROCEDURE PROTOCOL Routine 09/28/2024 1:00 PM EDT [place] NJX DX/THER SBST INTRLMNR LMBR/SAC W/IMG GDN Routine 09/28/2024 1:00 PM EDT Lumbar radiculopathy from Last 3 Months Results * Interventional Pain Nurse Procedure Protocol [...] dose of anticoagulant medication:: Eliquis 09/24/24 2130 Mailing Manager present?: no Additional Pre-Procedure Comments: SUADI Time out @ 1338 per LB Procedure [...] to: home Mode of exit: Walked (to [facility] @ [address] Valdez) Attendance: Constant attendance by certified staff until patient recovered Recovery: Patient returned to pre-procedure baseline Estimated blood loss (see I/O flowsheets): no Specimens recovered: None Patient is stable for discharge or admission: yes Procedure completion: Tolerated well, no immediate complications us Porter Valdez MD IN CLINIC/BEDSIDE ORDERABLES Final Result * NH NJX DX/THER SBST INTRLMNR LMBR/SAC W/IMG GDN (09/28/2024 1:00 PM EDT) Narrative Porter Valdez MD - 09/28/2024 1:00 PM EDT Porter Valdez MD 09/28/2024 4:24 PM Interlaminer Epidural - Lumbar / Sacral Performed by: Donavon Hope DO Authorized by: Porter Valdez MD [place] Protocol: Time out was called immediately prior [...] Valdez MD IN CLINIC/BEDSIDE ORDERABLES Final Result from Last 3 Mon[place] [address] [facility] Care Teams General Manager Relationship Specialty Start Date End Date Deion Smith MD [facility] [place]ERELLE BOYERTOANGELIC [place] [address] PCP - General 06/30/20
--- OUTSIDE RECORDS SUMMARY | 2024-10-06 12:48 | XMS_ITS | Encounter Summary ---
Author Organization Healthcare Address [address] [place] [address] Care Team Providers Care Loss Prevention Associate Name Role Phone Deion Smith MD Primary Care Provider [phone] Encounter Details Date Type Department Care Team (Late st Contact Info) Description 01/05/2024 Orders Only External Location [address] [place] [address] Bill Holder, DO [address] [place] [address] Social History Tobacco Use Types Packs/Day Years [...] Building [facility] [address] [facility], [address] [place] [address] Davy Ruiz MD [address] [place] [address] 12/29/2024 10:30 AM EST Office Visit Interventional Pain Medicine [address] [place] [address] Porter Valdez MD [address] [place] [address] documented as of this encounter Procedures Procedure Name Priority Date/Time Associated Diagnosis Comments MR OUTSIDE IMAGES 01/05/2024 3:19 PM EST documented in this encounter Results * MR transfer of outside films (01/05/2024 3:19 PM EST) Anatomical Region Laterality Modality Magnetic Resonan ce 01/05/2024 3:19 PM EST Bill Holder DO IMG MRI PROCEDURES Final Result documented in this encounter Visit Diagnoses Not on filedocumented in this encounter Care Teams Loss Prevention Associate Relationship Specialty Start Date End Date Deion Smith MD [address] [place] [address] PCP - General 06/30/20 documented as of this encounter
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
--- OUTSIDE RECORDS SUMMARY | 2024-10-06 12:49 | XMS_ITS | Encounter Summary ---
[facility] Address [address] [place] [address] Care Team Providers Care Flavoring Maker Name Role Phone Deion Smith MD Primary Care Provider + Reason for Visit * Reason Onset Date Comments CT ordered 08/04/2024 Encounter Details Date Type Department Care Team (Late st Contact Info) Description 08/04/2024 Telephone [facility] [address] [place] [address] Killian Mayo MD [address] [place] [address] CT ordered Social History Tobacco Use Types Packs/Day Years Used Date Smoking Tobacco: Never Passive Smoke Exposure: Never Smokeless Tobacco: Never Comments:Tried a puff at 10 y o. Never smoked afterwards. Alcohol Use Standard Drinks/Week Comments Yes 1 (1 standard drink = 0.6 oz pure alcohol) Occasionally enjoy wine or mixed drinks. Not weekly. PHQ-2 Answer Date Recorded Retired PHQ-9: Brief Depression Severity Measure Score 1 07/25/2022 PHQ-2 Answer Date Recorded Patient Health Questionnaire-2 Score 1 04/23/2024 Comments No Sex and Gender Information Value Date Recorded Sex Assigned at Female 10/10/2021 10:25 AM EDT Legal Sex Female 1:13 PM EDT Gender Identity Female 10/10/2021 10:25 AM EDT Sexual Orientation Straight 10/10/2021 10 :25 AM EDT documented as of this encounter Miscellaneous Notes * Telephone Encounter - Gaby Agee LPN - 08/09/2024 3:32 PM EDT Pt is aware * Telephone Encounter - Thalia Macario MA - 08/04/2024 2:17 PM EDT HUB or FRONT to relay: Per Dr Mayo; I wanted to let her know that I did order a CT of her lungs for 3 month follow up in October of this year after reviewing their notes. I tried to call her phone number but there was no answer at [phone] today. She will discuss other issues with PCP in September but wanted to let her know about the impending CT. Lvm for pt. documented in this encounter Plan of Treatment Upcoming Encounters Date Type Department Care Team (Late st Contact Info) Description 11/04/2024 11:30 AM EDT Appointment [facility] AT [address] [place] [address] 04/01/2025 9:45 AM EST Office Visit [facility] [address] [place] [phone] Deion Smith MD [address] [place] [address] 09/30/2025 10:15 AM EDT Office Visit [facility] [address] [place] [address] Deion Smith MD [address] [place] [place] [address] documented as of this encounter Visit Diagnoses Not on filedocumented in this encounter Additional Health Concerns Assessment Noted Time PHQ-2 Depression Total Score: 2 09/22/19 24 10:13 AM EDT documented as of this encounter Care Teams Flavoring Maker Relationship Specialty Start Date End Date Deion Smith MD [address] [place] [address] PCP - General Family Medicine 09/19/21 documented as of this encounter
--- OUTSIDE RECORDS SUMMARY | 2024-10-06 12:49 | XMS_ITS | Encounter Summary ---
Author Organization Healthcare Address [address] [place] [address] Care Team Providers Care Fittings Finisher Name Role Phone Deion Smith MD Primary Care Provider [phone] Encounter Details Date Type Department Care Team (Latest Contact Info) Description 09/06/2024 Travel Social History Tobacco Use Types Packs/Day [...] Building [facility] [address] [facility], [address] [place] [address] Davy Ruiz MD [address] [place] [address] 12/29/2024 10:30 AM EST Office Visit [facility] [address] [place] [address] Porter Valdez MD [address] [place] [address] documented as of this encounter Visit Diagnoses Not on filedocumented in this encounter Additional Health Concerns Assessment Noted Time A fall risk assessment has been complete d for the patient 07/19/2024 12:37 PM EDT A Body Mass Index follow-up plan has been documented for the patient 07/19/2024 1:36 PM EDT documented as of this encounter Care Teams Fittings Finisher Relationship Specialty Start Date End Date Deion Smith MD [address] [place] [address] PCP - General 06/30/20 documented as of this encounter
--- OUTSIDE RECORDS SUMMARY | 2024-10-06 12:49 | XMS_ITS | Encounter Summary ---
[facility] Address [address] [place] [address] Care Team Providers Care Surgery Attendant Name Role Phone Deion Smith MD Primary Care Provider + Encounter Details Date Type Department Care Team (Latest Contact Info) Description 09/27/2024 Travel Social History Tobacco Use Types Packs/Day [...] AM EDT documented as of this encounter Functional Status documented as of this encounter Plan of Treatment Upcoming Encounters Date Type Department Care Team (Late st Contact Info) Description 11/04/2024 11:30 AM EDT Appointment [facility] AT [address] [place] [address] 04/01/2025 9:45 AM EST Office Visit [facility] [address] [facility] [place] [address] Deion Smith MD [address] [place] [address] 09/30/2025 10:15 AM EDT Office Visit [facility]INE [address] [place] [address] Deion Smith MD [address] [place] [address] documented as of this encounter Visit Diagnoses Not on filedocumented in this encounter Additional Health Concerns Assessment Noted Time PHQ-2 Depression Total Score: 2 09/22/19 24 10:13 AM EDT documented as of this encounter Care Teams Surgery Attendant Relationship Specialty Start Date End Date Deion Smith MD [address] [place] [address] PCP - General Family Medicine 09/19/21 documented as of this encounter
--- OUTSIDE RECORDS SUMMARY | 2024-10-06 12:49 | XMS_ITS | Encounter Summary ---
[facility] Address [address] [place] [address] Care Team Providers Care Prize Fighter Name Role Phone Deion Smith MD Primary Care Provider + Reason for Visit * Reason Onset Date Comments Surgical Clearance 08/12/2024 [facility] CALLED TO CONFIRM CLEARANCE Encounter Details Date Type Department Care Team (Late st Contact Info) Description 08/12/2024 Telephone [facility] MEDICINE [address] [place] [address] Deion Smith MD [address] [place] [address] Surgical Clearance ([facility] CALLED TO CONFIRM CLEARANCE) Social History Tobacco Use Types Packs/Day Years [...] encounter Miscellaneous Notes * Telephone Encounter - Ginger Friend RegSched Rep - 08/12/2024 10:34 AM EDT FYI: [facility] CALLED TO CONFIRM SURGICAL CLEARANCE SENT ON 08/02- THEY ARE REFAXING THE CLEARANCE IN CASEPCP DOESN'T HAVE IT. PT'S SURGERY WILL BE ON 08/18/24 documented in this encounter Plan of Treatment Upcoming Encounters Date Type Department Care Team (Late st Contact Info) Description 11/04/2024 11:30 AM EDT Appointment [facility] AT [address] [place] [address] 04/01/2025 9:45 AM EST Office Visit [facility] MEDICINE [address] [place] [address] Deion Smith MD [address] [place] [address] 09/30/2025 10:15 AM EDT Office Visit [facility] MED[facility]INE [address] [address] Deion Smith MD [address] [place] [address] documented as of this encounter Visit Diagnoses Not on filedocumented in this encounter Additional Health Concerns Assessment Noted Time PHQ-2 Depression Total Score: 2 09/22/19 24 10:13 AM EDT documented as of this encounter Care Teams Prize Fighter Relationship Specialty Start Date End Date Deion Smith MD [address] [place] [address] PCP - General Family Medicine 09/19/21 documented as of this encounter
--- OUTSIDE RECORDS SUMMARY | 2024-10-06 12:49 | XMS_ITS | Encounter Summary ---
Author Organization Healthcare Address [address] [place] [address] Care Team Providers Care Chief Pharmacist Name Role Phone Deion Smith MD Primary Care Provider [phone] Encounter Details Date Type Department Care Team (Latest Contact Info) Description 09/28/2024 Travel Social History Tobacco Use Types Packs/Day [...] Building [facility] [address] [facility], [address] [place] [address] Davy Ruiz MD [address] [facility] [address] [place] [address] 12/29/2024 10:30 AM EST Office Visit [facility] Medicine [address] [place] [address] Porter Valdez MD [address] [place] [address] documented as of this encounter Visit Diagnoses Not on filedocumented in this encounter Additional Health Concerns Assessment Noted Time A fall risk assessment has been complete d for the patient 09/28/2024 1:27 PM EDT A Body Mass Index follow-up plan has been documented for the patient 09/28/2024 4:24 PM EDT documented as of this encounter Care Teams Chief Pharmacist Relationship Specialty Start Date End Date Deion Smith MD [address] [place] [address] PCP - General 06/30/20 documented as of this encounter
--- OUTSIDE RECORDS SUMMARY | 2024-10-06 12:49 | XMS_ITS | Encounter Summary ---
Author [facility] Address [address] [place] [address] Care Team Providers Care Strap Buckler Machine Name Role Phone Deion Smith MD Primary Care Provider + Encounter Details Date Type Department Care Team (Late Contact Info) Description 04/26/2024 Results Follow-Up [facility] [address] [place] [address] Deion Smith MD [address] [place] [address] Social History Tobacco Use Types Packs/Day Years [...] AM EDT documented as of this encounter Plan of Treatment Upcoming Encounters Date Type Department Care Team (Late st Contact Info) Description 11/04/2024 11:30 AM EDT Appointment [facility] AT [address] [place], [place] [address] 04/01/2025 9:45 AM EST Office Visit [facility] [address] [place], [place] [address] Deion Smith MD [address] [place] [address] 09/30/2025 10:15 AM EDT Office Visit [facility] [address] [place] [address] Deion Smith MD [address] [place] [address] documented as of this encounter Visit Diagnoses Not on filedocumented in this encounter Additional Health Concerns Assessment Noted Time PHQ-2 Depression Total Score: 2 09/22/19 24 10:13 AM EDT documented as of this encounter Care Teams Strap Buckler Machine Relationship Specialty Start Date End Date Deion Smith MD [address] [place] [address] PCP - General Family Medicine 09/19/21 documented as of this encounter
--- OUTSIDE RECORDS SUMMARY | 2024-10-06 12:49 | XMS_ITS | Encounter Summary ---
Author Organization Healthcare Address [address] [place] [address] Care Team Providers Care Consulting Project Director Name Role Phone Deion Smith MD Primary Care Provider [phone] Encounter Details Date Type Department Care Team (Latest Contact Info) Description 09/24/2024 Travel Social History Tobacco Use Types Packs/Day [...] [facility], [address] [place] [address] Davy Ruiz MD [address] [facility] [address] [place] [address] 12/29/2024 10:30 AM EST Office Visit [facility] [address] [place] [address] Porter Valdez MD [address] [place] [address] documented as of this encounter Visit Diagnoses Not on filedocumented in this encounter Additional Health Concerns Assessment Noted Time A fall risk assessment has been complete d for the patient 09/13/2024 9:28 AM EDT A Body Mass Index follow-up plan has been documented for the patient 09/14/2024 8:08 AM EDT documented as of this encounter Care Teams Consulting Project Director Relationship Specialty Start Date End Date Deion Smith MD [address] [place] [address] PCP - General 06/30/20 documented as of this encounter
--- OUTSIDE RECORDS SUMMARY | 2024-10-06 12:49 | XMS_ITS | Encounter Summary ---
Author Organization Healthcare Address [address] [place] [address] Care Team Providers Care Ramp And Cargo Supervisor Name Role Phone Deion Smith MD Primary Care Provider [phone] Encounter Details Date Type Department Care Team (Late st Contact Info) Description 01/05/2024 Orders Only External Location [address] [place] [address] Bill Holder, DO [address] [place] [address] Social History Tobacco Use Types Packs/Day Years [...] Surgery [facility] [address] [facility], [address] [place] [address] Davy Ruiz MD [address] [place] [address] 12/29/2024 10:30 AM EST Office Visit [facility] [address] [place] [address] Porter Valdez MD [address] [place] [address] documented as of this encounter [...] on filedocumented in this encounter Care Teams Ramp And Cargo Supervisor Relationship Specialty Start Date End Date Deion Smith MD [address] [place] [address] PCP - General 06/30/20 documented as of this encounter
--- OUTSIDE RECORDS SUMMARY | 2024-10-06 12:49 | XMS_ITS | Encounter Summary ---
Author Organization Healthcare Address [address] [place] [address] Care Team Providers Care Silhouette Artist Name Role Phone Deion Smith MD Primary Care Provider [phone] Encounter Details Date Type Department Care Team (Latest Contact Info) Description 09/13/2024 Travel Social History Tobacco Use Types Packs/Day [...] Building [facility] [address] [facility], [address] [place] [address] Davy Ruiz MD [address] [place] [address] 12/29/2024 10:30 AM EST Office Visit [facility] [address] [place] [address] Porter Valdez MD [address] [place] [address] documented as of this encounter Visit Diagnoses Not on filedocumented in this encounter Additional Health Concerns Assessment Noted Time A fall risk assessment has been complete d for the patient 09/13/2024 9:28 AM EDT A Body Mass Index follow-up plan has been documented for the patient 09/14/2024 8:08 AM EDT documented as of this encounter Care Teams Silhouette Artist Relationship Specialty Start Date End Date Deion Smith MD [address] [place] [address] PCP - General 06/30/20 documented as of this encounter
== END 2024-10-06 23:59 | disposition home or self-care (01) ==
LOC: RAD 12:46
PROVIDERS: PCP Family Medicine; Visit Provider Family Medicine
DX: Z12.31 Encounter for screening mammogram for malignant neoplasm of breast (principal); R92.323 Mammographic fibroglandular density, bilateral breasts
CPT/HCPCS: 77063; 77067